=== PATIENT | female | born 1960 | race Two or more races ===

== ENCOUNTER 2024-09-26 04:45 | Observation (INO) | payer MEDICAID, SELFPAY ==
[2024-09-26] VITALS (27 sets, daily range): BP systolic 105–208; BP diastolic 55–100; PULSE 72–94; RESP 10–30; TEMP 36.1–37; O2SAT 92–99; BMI 34.3
--- NOTE | 2024-09-26 05:01 | EKG_ITS ---
[facility] Test Date: 2024-09-26 Pat Name: JEWEL REYNOLDS Department: Room: - Gender: Female Scheduling Clerk: : 1960 Requested By: Trace Pearl ([facility]) Order Number: [id number] Reading MD: Trace Pearl ([facility]) Measurements Intervals [place] Rate: 87 P: 44 [place]: 170 QRS: 16 QRSD: 99 T: 82 QT: 368 QTc: 443 Interpretive Statements SINUS RHYTHM NONSPECIFIC T-WAVE ABNORMALITY Compared to ECG 01/09/2024 12:36:49 No significant changes /store/S0/[id number].pdf
--- NOTE | 2024-09-26 05:01 | XR_ITS ---
Examination: PA lateral chest 2 views Technique: Upright PA lateral chest 2 views Indications: Chest pain today. Findings: Mild CHF Mild to moderate enlargement cardiac contour Prominent vascular congestion with perihilar basilar edema Enlarged Central pulmonary arteries Fluid in the fissures on the lateral view Impression: Mild CHF Suspicious for pulmonary artery hypertension
--- NOTE | 2024-09-26 05:01 | PD.EDRME ---
Rapid Medical Screening Exam RME Arrival date/time: 09/26/24 04:45 65-year-old female past medical history of ESRD with hemodialysis Wednesday, , Wednesday managed by Dr. Morales presents emergency department complaining of shortness of breath. Chief Complaint: Shortness of Breath/Dyspnea Vital signs: Vital Signs Temperature 98.2 F 09/26/24 04:54 Pulse Rate 94 09/26/24 04:54 Respiratory Rate 22 H 09/26/24 04:54 Blood Pressure 208/90 H 09/26/24 04:54 Pulse Oximetry (%) 95 09/26/24 04:54 Oxygen Delivery Method Room Air 09/26/24 04:54 Vital signs reviewed by provider: Yes
--- NOTE | 2024-09-26 06:13 | EDNOTE_ITS ---
ED SOB =RME/HPI General Chief Complaint: Shortness of Breath/Dyspnea Stated Complaint: shortness of breath, supposed to have HD this AM Time Seen by Provider: 09/26/24 06:05 Arrival date/time: 09/26/24 04:45 RME / HPI RME / HPI Narrative: 09/26/24 04:45 65-year-old female past medical history of ESRD with hemodialysis Wednesday, , Wednesday managed by Dr. Morales presents emergency department complaining of shortness of breath. This section includes all my notes and documentations, including HPI, PE, and ED course. Iron Jacobson MD HPI: 64-year-old female here with several days of worsening shortness of breath with equivocal orthopnea. With coughing. No fever. No chest pain. No other complaints. ROS: All negative except as documented in HPI. Physical Exam: General: Alert and oriented. Coughing with mild respiratory distress. Eyes: Conjunctivae and lids clear. ENT: No nasal congestion. Pharynx normal. TM normal bilaterally. Neck: Supple. Heart: RRR. Lungs: Mild respiratory distress. Moderately decreased air movement with diffuse rales. Skin: Warm and dry. Neuro: Alert and oriented X 3. I reviewed all diagnostic test results. My interpretation of the EKG is sinus rhythm with nonspecific ST?T changes. My interpretation of the chest x-ray is increased vascular congestion. Blood tests remarkable for Cr 8.5, troponin 0.059, BNP 373. Urine specimen pending. At this point, diagnoses include CHF and ESRD and elevated troponin. Treatment here included Lasix and morphine and topical NTG. Some improvement noted. I discussed the case with our director of construction and our hospitalist. About the presentation and exam and diagnostics and treatments here. And need of further care in the hospital. Will accept the patient. Iron Jacobson MD Related Data Home Medications ?Medication ?Instructions ?Recorded ?Confirmed atorvastatin 10 mg tablet 10 mg PO DAILY 01/09/24 01/09/24 ergocalciferol (vitamin D2) 1,250 1,250 mcg PO DAILY 01/09/24 01/09/24 mcg (50,000 unit) capsule fluoxetine 20 mg capsule 20 mg PO DAILY 01/09/24 01/09/24 furosemide 40 mg tablet 40 mg PO DAILY 01/09/24 01/09/24 levothyroxine 75 mcg tablet 75 mcg PO DAILY 01/09/24 01/09/24 loratadine 10 mg tablet 10 mg PO DAILY 01/09/24 01/09/24 patiromer calcium sorbitex 8.4 8.4 g PO DAILY 01/09/24 01/09/24 gram oral powder packet (Veltassa) sevelamer carbonate 800 mg tablet 800 mg PO TID 01/09/24 01/09/24 Previous Rx's ?Medication ?Instructions ?Recorded permethrin 5 % topical cream 1 applic topical Q14D 2 doses #60 01/11/24 grams hydrocodone 5 mg-acetaminophen 325 1 tab PO BID PRN pain #10 tabs 05/09/24 mg tablet Allergies Allergy/AdvReac Type Severity Reaction Status Date / Time peach Allergy Severe SKIN RASH Verified 05/09/24 16:59 Course Quality Measures none Orders Category Date Time Status Bedside Influenza A&B Antigen Test NOW Care 09/26/24 05:02 Completed COVID-19 Screening Questionnaire NOW Care 09/26/24 08:54 Active Decision to Admit X1 Care 09/26/24 08:54 Completed EKG (ED ONLY) *Do not use* NOW Care 09/26/24 05:01 Completed Saline [Insert IV] NOW Care 09/26/24 06:15 Completed Consult to Nephrology Stat Cons 09/26/24 08:46 Ordered EKG (ED Only) Stat Exams 09/26/24 05:01 Draft XR chest 2V Stat Exams 09/26/24 05:01 Completed B-Type Natriuretic Peptide Stat Lab 09/26/24 05:56 Completed CBC Stat Lab 09/26/24 07:32 Completed Comprehensive Metabolic Panel Stat Lab 09/26/24 05:56 Completed Drug Screen,Urine Stat Lab 09/26/24 05:01 Ordered Magnesium Stat Lab 09/26/24 05:56 Completed Partial Thromboplastin Time Stat Lab 09/26/24 05:56 Completed Prothrombin Time with INR Stat Lab 09/26/24 05:56 Completed Troponin I Stat Lab 09/26/24 05:56 Completed Urinalysis Stat Lab 09/26/24 05:01 Ordered Furosemide Inj [Lasix Inj] Med 09/26/24 07:29 Discontinued 80 mg IVP X1 ONE Morphine Inj Med 09/26/24 07:29 Discontinued 2 mg IVP X1 ONE Nitroglycerin Oint 2% [Nitro-paste Oint 2%] Med 09/26/24 07:29 Discontinued 1 inch TOP X1 ONE Vital Signs Vital signs: Vital Signs Temperature 98.2 F 09/26/24 04:54 Pulse Rate 94 09/26/24 04:54 Respiratory Rate 22 H 09/26/24 04:54 Blood Pressure 208/90 H 09/26/24 04:54 Pulse Oximetry (%) 95 09/26/24 04:54 Oxygen Delivery Method Room Air 09/26/24 04:54 Shortness of Breath / Dyspnea Patient data External records reviewed:: [facility] previous records (I reviewed ED visit on 05/09/2024) Clinical information provided by:: patient and EMS Social determinants that could affect healthcare access:: housing Patient has the following chronic illnesses:: HFpEF 50% 12/2023, hypertension, ESRD on HD T/Th/Sat, hypothyroidism, hyperlipidemia How is presenting disease/condition affected by chronic disease/condition?: exacerbated by Evaluation data The following diagnostics were reviewed and interpreted by me:: lab results, radiology exam(s) and EKG tracing(s) (My interpretation of the EKG is: Sinus rhythm (73 bpm) with nonspecific ST-T changes. Iron Jacobson MD) Lab and/or radiology exams considered but not ordered:: None Interpretation Summary: CHF and ESRD and elevated troponin Medications / Prescriptions Medications or Prescriptions considered but not ordered:: None Medication administrations:: Medication Administration History Discontinued Medications Furosemide (Furosemide Inj 10 Mg/Ml 4ml Vial) 80 mg IVP X1 ONE Stop: 09/26/24 07:30 Last Admin: 09/26/24 08:53 Dose: 80 mg Documented By: GERARD Morphine Sulfate (Morphine Sulf Inj 10 Mg/Ml Vial) 2 mg IVP X1 ONE Stop: 09/26/24 07:30 Last Admin: 09/26/24 08:58 Dose: 2 mg Documented By: GERARD Nitroglycerin (Nitroglycerin Oint 2% 1 Inch Packet) 1 inch TOP X1 ONE Stop: 09/26/24 07:30 Last Admin: 09/26/24 08:55 Dose: 1 inch Documented By: GERARD Lasix and topical NTG and morphine Consultations Consultation(s) initiated? (list below): Yes Consultation #1 (Physician, Specialty, Details): Dr. Morales (Nephrology) Diagnosis Shortness of Breath Differential Diagnosis: acute exacerbation of chronic obstructive airways disease, congestive heart failure, community acquired pneumonia and other (MO) Most likely diagnosis given after review of the tests above:: CHF Admission Indicated Admission indicated?: indicated Explain why admission is indicated or not indicated:: CHF Admission Request Was there a request for admission?: Yes Admission Attestation Admission request attestation: Discussed case with Hospitalist service regarding admission. Discussed patients ED course, exam findings, labs, and radiology results. The Hospitalist [agrees,declines] to accept the patient for admission. Disposition Plan Disposition Plan: Admit Discharge Plan Plan Patient Disposition: Admit Acute Care w/in Hospital Prescriptions/Referrals Prescriptions/Med Rec: No Action furosemide 40 mg tablet 40 mg PO DAILY atorvastatin 10 mg tablet 10 mg PO DAILY levothyroxine 75 mcg tablet 75 mcg PO DAILY ergocalciferol (vitamin D2) 1,250 mcg (50,000 unit) capsule 1,250 mcg PO DAILY fluoxetine 20 mg capsule 20 mg PO DAILY Veltassa 8.4 gram powder in packet 8.4 g PO DAILY Hold Instructions: Resume on 01/18/24. To be evaluated by PCP sevelamer carbonate 800 mg tablet 800 mg PO TID loratadine 10 mg tablet 10 mg PO DAILY Hold Instructions: Resume on 01/18/24. To be evaluated by PCP in outpatient setting permethrin 5 % cream 1 applic topical Q14D Qty: 60 0RF Rx Instructions: apply second treatment 14 days after first treatment if live lice remain hydrocodone-acetaminophen 5-325 mg tablet 1 tab PO BID MDD 10 PRN (Reason: pain) Qty: 10 0RF Referrals: Viky Wick PA-C [Primary Care Provider] - In 1 week Problem List Clinical Impression: Elevated troponin, End-stage renal disease (ESRD), Congestive heart failure Patient/Caregiver Discharge Instructions Print Language: Cook Islander Stand Alone Forms: Devi Award Info., Patient Portal Info Letter
[2024-09-26 07:14] LABS: INR 1.1 (0.9-1.3); Partial Thromboplastin Time 31.6 Seconds (22.0-36.0); Prothrombin Time 11.5 Seconds (9.0-12.2)
[2024-09-26 07:24] LABS: B-Type Natriuretic Peptide 373 pg/mL (0-100)
[2024-09-26 07:49] LABS: Alanine Aminotransferase < 7 U/L (10-49); Albumin, Serum 4.4 gm/dL (3.4-4.8); Albumin/Globulin Ratio 1.7 (1.2-2.2); Alkaline Phosphatase 139 U/L (46-116); Anion Gap 10 (7-16); Aspartate Amino Transferase < 8 U/L (0-34); BUN/Creatinine Ratio 6 Ratio (12-20); Bilirubin,Total 0.3 mg/dL (0.3-1.2); Blood Urea Nitrogen 49 mg/dL (9-23); Calcium 8.9 mg/dL (8.3-10.6); Calcium (Corrected) 8.9 mg/dL (8.5-10.1); Carbon Dioxide 28.3 mMol/L (20.0-31.0); Chloride 100 mMol/L (98-107); Creatinine (Component) 8.5 mg/dL (0.6-1.3); Estimated Creatinine Clearance 7.2 mL/min (>60); Globulin 2.6 gm/dL (2.3-3.5); Glucose 90 mg/dL (74-106); Magnesium 2.3 mg/dL (1.6-2.6); Osmolality,Calculated 288 (275-295); Potassium 5.1 mMol/L (3.4-5.1); Sodium 138 mMol/L (136-145); eGFR 5 See Note
[2024-09-26 07:59] LABS: Basophils % (Auto) 0 % (0-2.5); Eosinophils # (Auto) 0.1 Thou/mm3 (0.0-0.5); Eosinophils % (Auto) 2 % (0-10); Hematocrit 30.5 % (36.0-46.0); Hemoglobin 9.7 g/dL (12.0-16.0); Immature Granulocytes % (Auto) 0 % (0-0); Immature Granulocytes Auto 0.02 Thou/mm3 (0.00-0.00); Lymphocytes # (Auto) 0.8 Thou/mm3 (1.0-4.8); Lymphocytes % (Auto) 12 % (10-50); Mean Corpuscular HGB Conc 31.8 g/dl (31.0-37.0); Mean Corpuscular Volume 88 fL (80-100); Monocytes # (Auto) 0.4 Thou/mm3 (0.0-0.8); Monocytes % (Auto) 5 % (0-12); Neutrophils # (Auto) 5.6 Thou/mm3 (1.8-7.7); Neutrophils % (Auto) 81 % (37-80); Nucleated Red Blood Cell % 0 /100 WBC (0); Platelet Count 106 Thou/mm3 (140-440); RDW Standard Deviation 41.1 fL (36.4-46.3); Red Blood Count 3.47 Miln/mm3 (4.00-5.20); White Blood Count 6.9 Thou/mm3 (3.6-11.0)
[2024-09-26 08:15] LABS: Troponin I 0.059 ng/mL (0.0-0.045)
[2024-09-26] MEDS: FUROSEMIDE INJ 10 MG/ML 4ML VIAL 80 MG IVP (08:53)
[2024-09-26] MEDS: NITROGLYCERIN OINT 2% 1 INCH PACKET TOP (08:55)
[2024-09-26] MEDS: MORPHINE SULF INJ 10 MG/ML VIAL 2 MG IVP (08:58)
[2024-09-26 09:35] LABS: Collection Type, Urine Clean Catch
[2024-09-26 09:46] LABS: Amphetamine/Methamp Scrn,U Negative (Negative); Barbiturate Screen,Urine Negative (Negative); Benzodiazepines Screen,Urine Negative (Negative); Benzoylecgonine Screen, Ur Negative (Negative); Fentanyl Screen,Urine Negative (Negative); Opiate Screen,Urine Negative (Negative); THC Screen,Urine Negative (Negative)
[2024-09-26 09:50] LABS: Bacteria,Urine Rare; Bilirubin,Urine Negative (Negative); Blood,Urine 3+ (Negative); Color,Urine Colorless (Lt Yel-Yel); Glucose, Urine 2+ (Negative); Ketones,Urine Negative (Negative); Leukocyte Esterase,Urine Positive (Negative); Nitrite,Urine Negative (Negative); PH,Urine 8.5 (5.0-7.0); Protein,Urine 3+ (Neg - Trace); RBC,Urine 633 /hpf (0-3); Squamous Epithelial Cell,Urine 3 /hpf (0-5); Urobilinogen,Urine Negative mg/dL (0.0-1.0); WBC,Urine 75 /hpf (0-5)
[2024-09-26 09:53] LABS: Clarity,Urine Hazy (Clear/Hazy)
--- NOTE | 2024-09-26 12:03 | ESHP_ITS ---
Documentation for date of: 09/26/24 HPI History of Present Illness Chief complaint: Shortness of breath History of present illness: 62-year-old female past medical history of ESRD on hemodialysis for about 4 years (T, , S), hypertension, HFrEF, anxiety, hypothyroidism, and hyperlipidemia presented to the ED with shortness of breath. Patient states she was due her dialysis session today, however patient woke up very short of breath for which she was gasping for air and was brought to the ED. Of note patient states she has had to come to the hospital various occasions due to same symptoms. At this time patient denies any chest pain, nausea, vomiting, diarrhea, shortness of breath, lower extremity swelling, orthopnea, PND. Patient will be admitted as observation for hemodialysis. ED course: Vitals on arrival significant for tachypnea, hypertension systolic blood pressure in the 200s, CBC significant for some mild anemia, CHEM panel nonsignificant at this time. Troponin 0.059, BNP 373, chest x-ray was done showed mild congestive heart failure, pulmonary hypertension. PMHx: As above SxHx: Hernia repair, hysterectomy, cholecystectomy Social Hx: Denies tobacco, denies alcohol use, denies illicit substances including THC FHx: Unknown Review of Systems Review of Systems Narrative Review of Systems: Narrative ROS GENERAL: Denies fevers/chills or diaphoresis. HEENT: Denies headache or visual/hearing changes. Denies nasal discharge. NEURO: Denies unusual weakness or difficulty speaking. CARDIO: Denies chest pain or palpitations. PULM: Denies SOB, coughing, or wheezing. GI: Denies abdominal pain, N/V/C/D/reflux/gas, bright red blood per rectum or melena. Reports having BMs. URO: Denies burning/itching/pain/urinary changes. BOWLING ALLEY ATTENDANT: Denies menstrual changes, hot flashes. MSK/EXT/SKIN: Denies joint/skeletal/muscle pain, issues/changes in upper or lower extremities, itchiness, or superficial pain. PSYCH: Cooperative, pleasant mood & affect. The rest of the review of systems is otherwise negative. Exam Vital Signs Temp Pulse Resp BP Pulse Ox O2 Del Method O2 Flow Rate 98.6 F 76 11 L 155/71 H 97 Nasal Cannula 2 09/26/24 08:08 09/26/24 11:16 09/26/24 11:16 09/26/24 11:16 09/26/24 11:16 09/26/24 11:16 09/26/24 11:16 Narrative Exam Physical Exam GENERAL: NAD, AAOx3 HEENT: Moist mucosa. Eyes open, symmetrical, & clear CARDIO: Heart RRR, no obvious murmurs PULM: No noted coughing/dyspnea, mild crackles bilaterally GI: Abdomen soft, nondistended, no pain on palpation. BSx4 SKIN/MSK/EXT: Left upper extremity AV fistula, no pain on palpation. Pedal pulses present B/L NEURO: AAOx3, no focal neuro deficits, able to move all 4 extremities Results: Labs 09/26/24 07:32 09/26/24 05:56 Labs: Short CBC 09/26/24 Range/Units 07:32 WBC 6.9 (3.6-11.0) Thou/mm3 Hgb 9.7 L (12.0-16.0) g/dL Hct 30.5 L (36.0-46.0) % Plt Count 106 L (140-440) Thou/mm3 BMP 09/26/24 05:56 Sodium 138 Potassium 5.1 Chloride 100 Carbon Dioxide 28.3 BUN 49 H Creatinine 8.5 H* Glucose 90 Calcium 8.9 Cardiac Enzymes 09/26/24 Range/Units 05:56 Troponin I 0.059 H* (0.0-0.045) ng/mL Liver Function 09/26/24 Range/Units 05:56 Total Bilirubin 0.3 (0.3-1.2) mg/dL AST < 8 (0-34) U/L ALT < 7 L (10-49) U/L Alkaline Phosphatase 139 H (46-116) U/L Albumin 4.4 (3.4-4.8) gm/dL Urine 09/26/24 Range/Units 08:45 Urine Color Colorless A (Lt Yel-Yel) Urine Clarity Hazy (Clear/Hazy) Urine pH 8.5 H (5.0-7.0) Ur Specific [place] 1.010 (1.001-1.035) Urine Protein 3+ A (Neg - Trace) Urine Glucose (UA) 2+ A (Negative) Quality Measures Quality Measures none Medications Home Medications and Allergies Home Medications ?Medication ?Instructions ?Recorded ?Confirmed ?Type atorvastatin 10 mg tablet 10 mg PO DAILY 01/09/24 01/09/24 History ergocalciferol (vitamin D2) 1,250 1,250 mcg PO DAILY 01/09/24 01/09/24 History mcg (50,000 unit) capsule fluoxetine 20 mg capsule 20 mg PO DAILY 01/09/24 01/09/24 History furosemide 40 mg tablet 40 mg PO DAILY 01/09/24 01/09/24 History levothyroxine 75 mcg tablet 75 mcg PO DAILY 01/09/24 01/09/24 History loratadine 10 mg tablet 10 mg PO DAILY 01/09/24 01/09/24 History patiromer calcium sorbitex 8.4 8.4 g PO DAILY 01/09/24 01/09/24 History gram oral powder packet (Veltassa) sevelamer carbonate 800 mg tablet 800 mg PO TID 01/09/24 01/09/24 History Allergies Allergy/AdvReac Type Severity Reaction Status Date / Time peach Allergy Severe SKIN RASH Verified 05/09/24 16:59 Visit Medications Acetaminophen (Acetaminophen 325 Mg Tablet) 650 mg PO Q6H PRN PRN Reason: Fever >100.5 Stop: 10/26/24 09:50 Acetaminophen (Acetaminophen 325 Mg Tablet) 650 mg PO Q6H PRN PRN Reason: PAIN SCALE 1-3 (mild Stop: 10/26/24 09:50 Docusate Sodium (Docusate Sod 100 Mg Capsule) 100 mg PO QDAY [facility]; Protocol Stop: 10/27/24 08:59 Heparin Sodium (Porcine) (Heparin Sod Inj 5000 Unit/Ml Vial) 5,000 unit SC Q8HR [facility] Stop: 10/10/24 13:59 Ondansetron HCl (Ondansetron Inj 2 Mg/Ml Inj 2 Ml) 4 mg IV Q6H PRN; Protocol PRN Reason: NAUSEA OR VOMITING Stop: 10/26/24 09:50 Discontinued Medications Furosemide (Furosemide Inj 10 Mg/Ml 4ml Vial) 80 mg IVP X1 ONE Stop: 09/26/24 07:30 Last Admin: 09/26/24 08:53 Dose: 80 mg Morphine Sulfate (Morphine Sulf Inj 10 Mg/Ml Vial) 2 mg IVP X1 ONE Stop: 09/26/24 07:30 Last Admin: 09/26/24 08:58 Dose: 2 mg Nitroglycerin (Nitroglycerin Oint 2% 1 Inch Packet) 1 inch TOP X1 ONE Stop: 09/26/24 07:30 Last Admin: 09/26/24 08:55 Dose: 1 inch Assessment & Plan Plan 62-year-old female past medical history of ESRD on hemodialysis for about 4 years (, , S), hypertension, HFrEF, anxiety, hypothyroidism, and hyperlipidemia presented to the ED with shortness of breath. Patient will be admitted as observation for hemodialysis and hypertensive urgency. #Hypertensive urgency #Fluid overload Patient arrived with systolic blood pressure in the 200s to 210's Per patient after dialysis session her blood pressure runs on the lower side. -Will monitor at this time and reassess after dialysis -Labetalol 10 mg every 6 as needed, for SBP>190, hold if heart rate less than 60 -Lasix 40 mg daily resumed #ESRD (, WED) Continuous Improvement Analyst, Dr. Morales -Resume hemodialysis as scheduled #History of CHF Echo from December 2023 showed Normal LV size and function. Mild LVH. Estimated EF 55% Mild RV dilatation. Normal RV function. Mild LA dilatation. Mild MAC. Trace MR. Moderate calcific aortic valve stenosis, mean gradient 30mmHg, Vmax 3.8m/s. Mild TR, Trace AI. Per chart review patient is on goal-directed medical therapy, will resume after dialysis -Pending med rec #Hypothyroidism -Resume levothyroxine 75 mcg p.o. daily #Hyperlipidemia On atorvastatin 10 mg -Will resume was taken at home #Anxiety/depression -She takes fluoxetine 20 mg daily Case discussed with my senior Dr. Lyman PGY-[address] Doroteo Allison MD PGY-1 Disposition: Telemetry Fluids: None Feeding: Renal Thrombo prophylaxis: Heparin Gastric Ulcer prophylaxis: None CODE STATUS: Full code Senior resident attestation: Patient evaluated and examined at the bedside, plan of care discussed with rest of the team including my attending physician, except as noted. Patient is a 62-year-old female with past medical of ESRD on hemodialysis TTS, hypertension, CHF, anxiety and hypothyroidism who presented to the emergency room complaining of shortness of breath. Patient reported she had some sick contacts recently, complaining of atypical chest pain. Noted to have troponin leak, lab reviews show patient has persistent troponinemia, troponin 0.059 on this admission. Patient lives at the halfway, follows with hemodialysis, Dr Morales is the water treatment plant mechanic. Reported compliance with hemodialysis sessions. Patient admitted to medical floor for acute hypoxic respiratory failure secondary to volume overload likely secondary to ESRD. And accelerated hypertension. #Hypertensive urgency #ESRD #History of CHF Quresh PGY2
--- NOTE | 2024-09-26 12:21 | PC.NURSE ---
Patient resting comfortable, call light within reach.
--- NOTE | 2024-09-26 12:21 | PC.CC ---
Pt Cecily Desouza is a 64 yr old female admitted to hospitalist services for SOB. ASW met with pt at bedside to complete initial assessment. At time of encounter pt is noted to be alert and oriented to person, place and situation. Pt expressed understanding admission order. Pt able to confirm demographic information. Pt is from [place] [facility] [address] Per pt she has been residing at [facility] for last 2 months. Per pt prior to settling at [facility] she was residing with a friend. Pt identifies her sister Alejandra Desouza [phone] and her son Stephan Jackson [phone] as her surrogate DMs. Pt reports that she does not require DME to support ambulation. Pt reports being independent with her ADLs. Pt is on dialysis T, Th, Sat @ 0600. Per pt she is transported to dialysis by medical transport. Pt reports she is not diabetic. Pt reports using O2 PRN at dialysis. Pt dialysis center is [facility]. Pt is followed by Viky Wick for primary care. Pts inside sales professional is Dr. Morales. At time of D/c pt reports she will return to [facility]. Per pt staff at [facility] are assisting pt to secure permanent housing. Pt reports she is disabled and receives $1,188 per month. Pt will need transport back to [facility] at time of D/c.
--- NOTE | 2024-09-26 13:58 | PD.RESCONSUL ---
HPI Data of Consult Consult date: 09/26/24 Requesting Physician: Benjie Sadler MD Admitting Provider: Benjie Sadler MD Attending Provider: Benjie Sadler MD Primary Care Provider: Viky Wick PA-C Consult Narrative Reason for consult: ESRD on dialysis Wednesday//Wednesday History of present illness: HPI:A 64-year-old female patient with past medical history of ESRD on dialysis T//, hypertension, anxiety, hypothyroidism, HFrEF, hyperlipidemia, came to the ED due to shortness of breath for 1 day. She reported that her symptoms started as cough for 2 days before admission but continued to worsen and today this morning when she woke up her shortness of breath kept worsening. Patient on regular dialysis., Patient denied any fever or chills, denied any nausea or vomiting however she reported that there was someone in her facility was sick. Patient dialysis treatment is due today she has not had gone under dialysis this week. At the ED patient blood pressure was mildly elevated 153/86, O2 saturation was within normal limits. Chest x-ray showed possible vascular congestion. Her BNP is 373 which is below her baseline, patient has an echo in December which showed ejection fraction of 55%, troponin chronically elevated however states lowest #0.0 59. Serum creatinine noticed to be elevated to 8.5, potassium was 5.1, BUN of 49. Patient will undergo dialysis today. PMH: As above cc:: cc: Benjie Sadler MD Review of Systems Review of Systems Narrative Review of Systems: CONSTITUTIONAL: Patient denies any fever, chills. Complaining of fatigue HEENT: Denies any visual disturbances or hearing problems. CARDIOVASCULAR: Patient denies any chest pain. c/o shortness of breath, swelling in the lower extremities. PULMONARY: Patient c/o shortness of breath, cough. GASTROINTESTINAL: Patient denies any abdominal pain, constipation, nausea, vomiting, diarrhea. GENITOURINARY: Patient denies any urinary symptoms of burning or frequency or hematuria, denies any form in the urine. SKIN: Denies any rash. MUSCULOSKELETAL: Denies any muscular skeletal problems of joint pains. NEUROLOGICAL: Denies any neurological problems of strokes, seizures or confusion. Denies any memory problems. Past Medical History Past Medical History NEUROLOGIC: Negative Neurological Disorders, Cerebrovascular Accident, Transient Ischemic Attacks (TIA), Dementia, Alzheimer's Disease, Parkinson's Disease, Brain Tumor, Meningitis, Seizures, Epilepsy, Multiple Sclerosis, Cerebral Palsy, Amyotrophic Lateral Sclerosis (ALS/Nasreen Gehrig's), Guillain-[place] Syndrome, Spina Bifida, Paralysis, Peripheral Neuropathy, Lopez's Palsy, Subdural Hematoma, Migraine, Head Trauma, Spinal Cord Injury or Traumatic Brain Injury CARDIAC: Positive Cardiac Disorders, Hypercholesterolemia, Congestive Heart Failure, Edema and Hypertension; Negative Myocardial Infarction, Cardiac Arrhythmia, Atrial Fibrillation, Angina, Heart Murmur, Coronary Artery Disease, Atherosclerotic Heart Disease, Peripheral Vascular Disease, Aneurysm, Congenital Heart Disease, Valvular Heart Disease, Rheumatic Fever, Cardiomyopathy, Pericarditis, Cellulitis, Deep Vein Thrombosis, Hypotension or Varicose Veins RESPIRATORY: Negative Chronic Obstructive Pulmonary Disease (COPD), Asthma, Bronchitis, Emphysema, Pneumonia, Pulmonary Fibrosis, Tuberculosis, Pulmonary Embolism, Pulmonary Edema or Sleep Apnea GASTROINTESTINAL: Positive Gastrointestinal Disorders, Gall Bladder Disease and Obesity; Negative Hepatitis, Cirrhosis, Pancreatitis, Celiac Disease, Gastrointestinal Bleed, Esophageal Varices, Newton's Esophagus, Colitis, Ulcerative Colitis, Diverticulitis, Diverticulosis, Ulcer, Colorectal Cancer, Irritable Bowel, Crohn's Disease, Obstructive Bowel, Hiatal Hernia, Hemorrhoids or Gastroesophageal Reflux Disease GENITOURINARY: Positive Renal Disease; Negative Genitourinary Disorders, Kidney Stones, Polycystic Kidney Disease, Neurogenic Bladder, Inguinal Hernia, Dialysis, Prostate Cancer or Benign Prostatic Hyperplasia REPRODUCTIVE: Positive Endometriosis and Previous Pregnancies; Negative Breast Cancer or Testicular Cancer MUSCULOSKELETAL: Negative Musculoskeletal Disorders, Muscular Dystrophy, Myasthenia Gravis, Marfan's Syndrome, Arthritis, Rheumatoid Arthritis, Osteoporosis, Degenerative Disk Disease, Gout, Scoliosis, Carpal Tunnel Syndrome, Fibromyalgia, Fractures, Degenerative Joint Disease, Osteomyelitis or Poliovirus ENT: Negative Cataracts, Glaucoma, Blind, Retinal Detachment, Macular Degeneration, Ear Infection, Deafness, Head Trauma or Eye Prosthesis ENDOCRINE: Positive Endocrine Disorders, Diabetes Mellitus Type 2 and Hypothyroidism; Negative Diabetes Mellitus Type 1, Hypoglycemia, [place]'s Syndrome, [place]'s Disease, Hyperthyroidism, Parathyroid Disease, Pituitary Disease, Systemic Lupus Erythematosus, Syndrome of Inappropriate Antidiuretic Hormone (SIADH), Adrenal Disease or Graves' Disease HEMATOLOGIC: Negative Blood Disorders, Anemia, Leukemia, Hemophilia, Thalassemia, Sickle Cell Disease or Clotting Problems PSYCHO/SOCIAL: Positive Recreational Drug Use, Depression and Anxiety; Negative Psychiatric Problems, Schizophrenia, Bipolar Disorder, Behavior Problems, Self-Mutilation, Attention Deficit Disorder, Attention Deficit Hyperactivity Disorder, Depression, Post Traumatic Stress Disorder or Eating Disorder OTHER HISTORY: Positive Hospitalization and Chicken Pox; Negative Autoimmune Disease, Autism, Shingles, Falls, Blood Transfusions, Anesthesia Reactions, Organ Transplant, Chemotherapy, Radiation Therapy, MRSA, Human Immunodeficiency Virus (HIV), Measles, Mumps, Rubella ([place]ian Measles), Pertussis, Clostridium Difficile, Cancer, Breast Cancer, Cervical Cancer, Colorectal Cancer, Lung Cancer, Prostate Cancer or Testicular Cancer Family History FAMILY HISTORY: Positive Family Cardiac Disorders, Family Gastrointestinal Problems and Family Surgery; Negative Family Psychiatric Problems, Family Respiratory Disorders, Family Cancer or Family Anesthesia Reaction Surgical History SURGICAL: Positive Abdominal Surgery, Hysterectomy and Tubal Ligation; Negative Cardiac Surgery, Open Heart Surgery, Coronary Artery Bypass Graft, Valve Replacement, Vascular Surgery, Coronary Stent, Cardiac Catheterization, Pacemaker, Angiogram, Auto Implanted Cardiovert Defib, Carotid Endarterectomy, Endocrine Surgery, Thyroidectomy, Ear Surgery, Tympanostomy Tube, Eye Surgery, Nose Surgery, Oral Surgery, Tonsillectomy, Adenoidectomy, Gastric Bypass Surgery, Gastrostomy, Bowel Surgery, Nephrectomy, Transurethral Resection, Joint Replacement, Amputation, Open Reduction Internal Fixation, Arthroscopy, Neurologic Surgery, Brain Shunt, Mastectomy, Lumpectomy, Section, Vasectomy or Organ Transplant Social History SMOKING STATUS: Never smoker SECOND HAND EXPOSURE: No SUBSTANCE USE: does not use Exam Vital Signs Temp Pulse Resp BP Pulse Ox O2 Del Method O2 Flow Rate 98.0 F 75 18 153/86 H 96 Nasal Cannula 1 09/26/24 12:32 09/26/24 13:45 09/26/24 12:32 09/26/24 13:45 09/26/24 12:32 09/26/24 11:16 09/26/24 12:32 Narrative Exam GEN: AOx3, looks chronically ill, able to speak full sentences HEENT: NC/AC, oral mucosa moist, neck supple CVS: RRR, S1-S2 present, no murmurs appreciated RESP: Good air entry bilaterally, faint crepitations on the right side. GI: soft,non distended, non tender, NBS MSK: able to move all 4 limbs, no lower extremity edema SKIN: warm and dry CEMENT KILN OPERATOR: CN II-XII and Sensation grossly intact. Results Labs 09/26/24 07:32 09/26/24 05:56 Labs: Short CBC 09/26/24 Range/Units 07:32 WBC 6.9 (3.6-11.0) Thou/mm3 Hgb 9.7 L (12.0-16.0) g/dL Hct 30.5 L (36.0-46.0) % Plt Count 106 L (140-440) Thou/mm3 BMP 09/26/24 05:56 Sodium 138 Potassium 5.1 Chloride 100 Carbon Dioxide 28.3 BUN 49 H Creatinine 8.5 H* Glucose 90 Calcium 8.9 Cardiac Enzymes 09/26/24 Range/Units 05:56 Troponin I 0.059 H* (0.0-0.045) ng/mL Liver Function 09/26/24 Range/Units 05:56 Total Bilirubin 0.3 (0.3-1.2) mg/dL AST < 8 (0-34) U/L ALT < 7 L (10-49) U/L Alkaline Phosphatase 139 H (46-116) U/L Albumin 4.4 (3.4-4.8) gm/dL Urine 09/26/24 Range/Units 08:45 Urine Color Colorless A (Lt Yel-Yel) Urine Clarity Hazy (Clear/Hazy) Urine pH 8.5 H (5.0-7.0) Ur Specific [place] 1.010 (1.001-1.035) Urine Protein 3+ A (Neg - Trace) Urine Glucose (UA) 2+ A (Negative) Quality Measures Quality Measures none Medications Home Medications and Allergies Home Medications ?Medication ?Instructions ?Recorded ?Confirmed ?Type atorvastatin 10 mg tablet 10 mg PO DAILY 01/09/24 01/09/24 History ergocalciferol (vitamin D2) 1,250 1,250 mcg PO DAILY 01/09/24 01/09/24 History mcg (50,000 unit) capsule fluoxetine 20 mg capsule 20 mg PO DAILY 01/09/24 01/09/24 History furosemide 40 mg tablet 40 mg PO DAILY 01/09/24 01/09/24 History levothyroxine 75 mcg tablet 75 mcg PO DAILY 01/09/24 01/09/24 History loratadine 10 mg tablet 10 mg PO DAILY 01/09/24 01/09/24 History patiromer calcium sorbitex 8.4 8.4 g PO DAILY 01/09/24 01/09/24 History gram oral powder packet (Veltasergeya) sevelamer carbonate 800 mg tablet 800 mg PO TID 01/09/24 01/09/24 History Allergies Allergy/AdvReac Type Severity Reaction Status Date / Time peach Allergy Severe SKIN RASH Verified 05/09/24 16:59 Visit Medications Acetaminophen (Acetaminophen 325 Mg Tablet) 650 mg PO Q6H PRN PRN Reason: Fever >100.5 Stop: 10/26/24 09:50 Acetaminophen (Acetaminophen 325 Mg Tablet) 650 mg PO Q6H PRN PRN Reason: PAIN SCALE 1-3 (mild Stop: 10/26/24 09:50 Docusate Sodium (Docusate Sod 100 Mg Capsule) 100 mg PO QDAY LISY; Protocol Stop: 10/27/24 08:59 Heparin Sodium (Porcine) (Heparin Sod Inj 5000 Unit/Ml Vial) 5,000 unit SC Q8HR LISY Stop: 10/10/24 13:59 Ondansetron HCl (Ondansetron Inj 2 Mg/Ml Inj 2 Ml) 4 mg IV Q6H PRN; Protocol PRN Reason: NAUSEA OR VOMITING Stop: 10/26/24 09:50 Discontinued Medications Furosemide (Furosemide Inj 10 Mg/Ml 4ml Vial) 80 mg IVP X1 ONE Stop: 09/26/24 07:30 Last Admin: 09/26/24 08:53 Dose: 80 mg Morphine Sulfate (Morphine Sulf Inj 10 Mg/Ml Vial) 2 mg IVP X1 ONE Stop: 09/26/24 07:30 Last Admin: 09/26/24 08:58 Dose: 2 mg Nitroglycerin (Nitroglycerin Oint 2% 1 Inch Packet) 1 inch TOP X1 ONE Stop: 09/26/24 07:30 Last Admin: 09/26/24 08:55 Dose: 1 inch Assessment & Plan Plan Summary: A 64-year-old female patient with past medical history of ESRD on dialysis T/TH/S, hypertension, anxiety, hypothyroidism, HFrEF, hyperlipidemia, came to the ED due to shortness of breath for 1 day. She reported that her symptoms started as cough for 2 days before admission but continued to worsen and today this morning when she woke up her shortness of breath kept worsening. Patient was admitted for management of hypertension emergency with possible fluid overload Assessment and plan #ESRD Patient has been diagnosed with a ESRD 4 years ago Follow-up with Dr. Morlaes having dialysis regularly T//S Serum creatinine today 8.4, BUN 49, potassium of 4.1, not an acidotic state Patient is likely to be fluid overloaded, BNP level at his lowest point at this time of 373 Patient lying in bed comfortably, no lower extremities edema, no JVD Plan ? Pharmacy to dose medication ? Session dialysis today ? Pharmacy to dose medications ? Strict in and out ? Will continue dialysis as per her schedule at this time Thank you for your consultation, please do not hesitate to reach out if you have any question or concern - Patient's plan and care discussed with my attending, Dr. Carmen Perez MD Internal Medicine PGY-2 Attending Provider Attestation/Addendum Patient seen and examined with resident physician Dr. Cuadra. Note reviewed, agree with findings and recommendations. Patient currently seen on dialysis. Tolerating dialysis without any problems. Hemodialysis for 3 hours, 2K, ultrafiltration 2-3 L, Epogen 6000, no heparin ordered. Plan of care discussed with the dialysis nurse. Please see dialysis flowsheet for further details. Patient presented with chest pain, shortness of breath. Hopefully with dialysis it will improve. Ultrafiltration 2 L in progress. Thank you Dr. Sadler for allowing me to participate in the care of Ms. Desouza
[2024-09-26] MEDS: ACETAMINOPHEN 325 MG TABLET 650 MG PO (18:30)
[2024-09-26] MEDS: ATORVASTATIN CALCIUM 10 MG TABLET PO (20:45)
[2024-09-26] MEDS: HEPARIN SOD INJ 5000 UNIT/ML VIAL SC (20:45)
[2024-09-27] VITALS (7 sets, daily range): BP systolic 108–140; BP diastolic 64–82; PULSE 76–88; RESP 16–20; TEMP 36–36.4; O2SAT 94–99
[2024-09-27] MEDS: LEVOTHYROXINE SODIUM 25 MCG TABLET 75 MCG PO (05:24)
[2024-09-27] MEDS: HEPARIN SOD INJ 5000 UNIT/ML VIAL SC (05:24)
[2024-09-27 06:14] LABS: Basophils % (Auto) 0 % (0-2.5); Eosinophils # (Auto) 0.2 Thou/mm3 (0.0-0.5); Eosinophils % (Auto) 3 % (0-10); Hematocrit 29.2 % (36.0-46.0); Hemoglobin 9.5 g/dL (12.0-16.0); Immature Granulocytes % (Auto) 0 % (0-0); Immature Granulocytes Auto 0.02 Thou/mm3 (0.00-0.00); Lymphocytes # (Auto) 0.8 Thou/mm3 (1.0-4.8); Lymphocytes % (Auto) 18 % (10-50); Mean Corpuscular HGB Conc 32.5 g/dl (31.0-37.0); Mean Corpuscular Hemoglobin 28.6 pg (25.0-35.0); Mean Corpuscular Volume 88 fL (80-100); Monocytes # (Auto) 0.3 Thou/mm3 (0.0-0.8); Monocytes % (Auto) 7 % (0-12); Neutrophils # (Auto) 3.2 Thou/mm3 (1.8-7.7); Neutrophils % (Auto) 71 % (37-80); Nucleated Red Blood Cell % 0 /100 WBC (0); Platelet Count 103 Thou/mm3 (140-440); RDW Standard Deviation 40.8 fL (36.4-46.3); Red Blood Count 3.32 Miln/mm3 (4.00-5.20); White Blood Count 4.5 Thou/mm3 (3.6-11.0)
[2024-09-27 07:03] LABS: Alanine Aminotransferase < 7 U/L (10-49); Albumin, Serum 3.9 gm/dL (3.4-4.8); Albumin/Globulin Ratio 1.6 (1.2-2.2); Alkaline Phosphatase 117 U/L (46-116); Anion Gap 9 (7-16); Aspartate Amino Transferase < 8 U/L (0-34); BUN/Creatinine Ratio 5 Ratio (12-20); Bilirubin,Total 0.4 mg/dL (0.3-1.2); Blood Urea Nitrogen 29 mg/dL (9-23); Calcium 8.5 mg/dL (8.3-10.6); Calcium (Corrected) 8.6 mg/dL (8.5-10.1); Carbon Dioxide 30.3 mMol/L (20.0-31.0); Cardiac Risk Estimate 2.5 RATIO (3.7-5.6); Chloride 97 mMol/L (98-107); Cholesterol 79 mg/dL (132-200); Creatinine (Component) 5.8 mg/dL (0.6-1.3); Estimated Creatinine Clearance 10.3 mL/min (>60); Globulin 2.4 gm/dL (2.3-3.5); Glucose 77 mg/dL (74-106); HDL Cholesterol 31 mg/dL (40-60); LDL Cholesterol,Calculated 31 mg/dL (0-130); Osmolality,Calculated 276 (275-295); Potassium 4.7 mMol/L (3.4-5.1); Sodium 136 mMol/L (136-145); Thyroid Stimulating Hormone 2.74 uIU/mL (0.55-4.78); Total Protein 6.3 gm/dL (5.7-8.2); Triglycerides 84 mg/dL (30-150); eGFR 8 See Note
[2024-09-27] MEDS: ASPIRIN EC 81 MG TABEC PO (08:26)
[2024-09-27] MEDS: DOCUSATE SOD 100 MG CAPSULE PO (08:26)
[2024-09-27] MEDS: Furosemide 40 MG TABLET PO (08:27)
[2024-09-27] MEDS: FLUoxetine HCL 10 MG CAPSULE 20 MG PO (08:27)
--- NOTE | 2024-09-27 10:40 | CHAP ---
Patient was visited by a Spiritual Care Volunteer on 09/27/2024 between 0900 and 1036 and received comfort, encouragement and/or prayer.
--- NOTE | 2024-09-27 11:12 | PD.RESPRO ---
Documentation for date of: 09/27/24 Subjective Subjective Interval history: Patient was seen and examined at bedside. Yesterday dialysis removed 2.2 L. Patient reported mild improvement of her symptoms, denied any new symptoms at this time. Today her serum creatinine is 5.8, yesterday she underwent dialysis BUN is 29, potassium 4.7 calcium 8.6, magnesium 2.0, patient next dialysis is going to be tomorrow. She is on Wednesday schedule. Exam Vital Signs Temp Pulse Resp BP Pulse Ox O2 Del Method O2 Flow Rate 97.6 F 76 16 135/80 H 98 Room Air 1 09/27/24 07:55 09/27/24 08:27 09/27/24 07:55 09/27/24 08:27 09/27/24 07:55 09/27/24 07:55 09/26/24 12:32 Narrative Exam GEN: AOx3, looks chronically ill, able to speak full sentences HEENT: NC/AC, oral mucosa moist, neck supple CVS: RRR, S1-S2 present, no murmurs appreciated RESP: Good air entry bilaterally, faint crepitations on the right side. GI: soft,non distended, non tender, NBS MSK: able to move all 4 limbs, no lower extremity edema SKIN: warm and dry FLEET MANAGER: CN II-XII and Sensation grossly intact. Objective Labs 09/27/24 04:25 09/27/24 04:25 Labs: Laboratory Results - last 24 hr 09/27/24 04:25 WBC 4.5 RBC 3.32 L Hgb 9.5 L Hct 29.2 L MCV 88 MCH 28.6 MCHC 32.5 RDW Std Deviation 40.8 Plt Count 103 L Neut % (Auto) 71 Lymph % (Auto) 18 [place] % (Auto) 7 Eos % (Auto) 3 Baso % (Auto) 0 Neut # (Auto) 3.2 Lymph # (Auto) 0.8 L [place] # (Auto) 0.3 Eos # (Auto) 0.2 Baso # (Auto) 0.0 Immature Gran # (Auto) 0.02 H Absolute Nucleated RBC 0.00 Immature Gran % 0 Nucleated RBC % 0 Sodium 136 Potassium 4.7 Chloride 97 L Carbon Dioxide 30.3 Anion Gap 9 BUN 29 H Creatinine 5.8 H* D Estim Creat Clear Calc 10.3 L eGFR 8 L* BUN/Creatinine Ratio 5 L Glucose 77 Calculated Osmolality 276 Calcium 8.5 Corrected Calcium 8.6 Magnesium 2.0 Total Bilirubin 0.4 AST < 8 ALT < 7 L Alkaline Phosphatase 117 H D Total Protein 6.3 Albumin 3.9 D Globulin 2.4 Albumin/Globulin Ratio 1.6 Triglycerides 84 Cholesterol 79 L LDL Cholesterol, Calc 31 HDL Cholesterol 31 L Cholesterol/HDL Ratio 2.5 L TSH 2.74 Quality Measures Quality Measures none Assessment & Plan Assessment Current Active Medications: Generic Name Dose Route Start Last Admin Trade Name Freq PRN Reason Stop Dose Admin Acetaminophen 650 mg 09/26/24 09:51 Acetaminophen 325 Mg Tablet PO 10/26/24 09:50 Q6H PRN Fever >100.5 Acetaminophen 650 mg 09/26/24 09:51 09/26/24 18:30 Acetaminophen 325 Mg Tablet PO 10/26/24 09:50 650 mg Q6H PRN Administration PAIN SCALE 1-3 (mild Aspirin 81 mg 09/27/24 09:00 09/27/24 08:26 Aspirin Ec 81 Mg Tabec PO 10/27/24 08:59 81 mg QDAY LISY Administration Atorvastatin Calcium 10 mg 09/26/24 21:00 09/26/24 20:45 Atorvastatin Calcium 10 Mg Tablet PO 10/26/24 20:59 10 mg HS LISY Administration Docusate Sodium 100 mg 09/27/24 09:00 09/27/24 08:26 Docusate Sod 100 Mg Capsule PO 10/27/24 08:59 100 mg QDAY LISY Administration Protocol Fluoxetine HCl 20 mg 09/27/24 09:00 09/27/24 08:27 Fluoxetine Hcl 10 Mg Capsule PO 10/27/24 08:59 20 mg QDAY LISY Administration Furosemide 40 mg 09/27/24 09:00 09/27/24 08:27 Furosemide 40 Mg Tablet PO 10/27/24 08:59 40 mg QDAY LISY Administration Heparin Sodium (Porcine) 5,000 unit 09/26/24 14:00 09/27/24 05:24 Heparin Sod Inj 5000 Unit/Ml Vial SC 10/10/24 13:59 5,000 unit Q8HR LISY Administration Labetalol HCl 10 mg 09/26/24 14:02 Labetalol Inj 5 Mg/Ml Vial 20 Ml IVP 10/26/24 14:14 Q6H PRN SBP>190 Levothyroxine Sodium 75 mcg 09/27/24 06:00 09/27/24 05:24 Levothyroxine Sodium 25 Mcg Tablet PO 10/27/24 05:59 75 mcg ACBR LISY Administration Ondansetron HCl 4 mg 09/26/24 09:51 Ondansetron Inj 2 Mg/Ml Inj 2 Ml IV 10/26/24 09:50 Q6H PRN NAUSEA OR VOMITING Protocol Plan Summary: A 64-year-old female patient with past medical history of ESRD on dialysis T//S, hypertension, anxiety, hypothyroidism, HFrEF, hyperlipidemia, came to the ED due to shortness of breath for 1 day. She reported that her symptoms started as cough for 2 days before admission but continued to worsen and today this morning when she woke up her shortness of breath kept worsening. Patient was admitted for management of hypertension emergency with possible fluid overload Assessment and plan #ESRD Patient has been diagnosed with a ESRD 4 years ago Follow-up with Dr. Morales having dialysis regularly T// Serum creatinine today 8.4, BUN 49, potassium of 4.1, not an acidotic state Patient is likely to be fluid overloaded, BNP level at his lowest point at this time of 373 Patient lying in bed comfortably, no lower extremities edema, no JVD Plan ? Pharmacy to dose medication ? Session dialysis Tomorrow ? Pharmacy to dose medications ? Strict in and out ? Will continue dialysis as per her schedule at this time Thank you for your consultation, please do not hesitate to reach out if you have any question or concern - Patient's plan and care discussed with my attending, Dr. Carmen Perez MD Internal Medicine PGY-2 Attending Provider Attestation/Addendum Patient seen and examined with resident physician Dr. Cuadra. Note reviewed, agree with additions. Patient did receive dialysis. Noted the team wants to discharge her today.
--- NOTE | 2024-09-27 11:13 | PD.RESDS ---
Planned Discharge Date 09/27/24 DS: Providers Provider Date of admission: 09/26/24 09:51 Primary care physician: Viky Wick PA-C Admitting Provider: Benjie Sadler MD Attending Provider on Admission: Jase Orozco MD Consults: 09/26/24 08:46 Consult to Nephrology Stat Comment: ESRD Consulting Provider: Luz Morales Attending Provider on DC: Jase Orozco MD Discharging Provider: Shilo Allison MD Anticipated date of discharge: 09/27/24 DS: Diagnosis Problem List Completed Was Problem List Reviewed/Reconciled?: Yes Hospital Course Hospital Course Hospital course: Patient is a 62-year-old female with past medical history of ESRD on hemodialysis Wednesday, hypertension, HFrEF 55% December 2023, anxiety, hypothyroidism, hyperlipidemia who presented to [facility] with a chief complaint of shortness of breath. Patient was recently dialyzed at her dialysis session but due to the fact that she was having dyspnea she was emergently sent to the emergency department. At presentation patient denied any chest pain, nausea vomiting, lower extremity swelling or orthopnea. In the ED patient was noted to have hypertensive urgency with a blood pressure greater than 200 and a mild troponin leak was 0.059 and elevated BNP at 373. A chest x-ray was done which revealed mild congestive heart failure and pulmonary hypertension. Patient was admitted for hypertensive urgency management and fluid overload state requiring hemodialysis. Patient's blood pressure was quickly normalized with her home antihypertensives and she received hemodialysis which improved her dyspnea. Patient required oxygen due to her fluid overload state and informed us that she does use 2 L of home O2 as needed when she has dyspnea. Patient underwent a walking test with nursing staff and was noted to desaturate into the mid 80s so oxygen was ordered for the patient. Patient already had home O2 so she did not receive additional oxygen and was safe for discharge to the long-term for use with her previous oxygen. Commended to reconcile with her health and safety director in 1 week to discuss recent hospitalization. Problem list: #Hypertensive urgency #Fluid overload #ESRD (T, TH, WED) #History of CHF #Hypothyroidism #Hyperlipidemia #Anxiety/depression Case discussed with my senior Dr. Mathur PGY-[address] Pam Allison MD PGY-1 Status at Discharge Functional status at discharge: independent ambulation Overall status at discharge: patient is progressing back to baseline Time Spent with Patient Time attestation: Total time spent providing and/or coordinating discharge services: Time spent: Greater than 30 minutes Exam Vital Signs Temp Pulse Resp BP Pulse Ox O2 Del Method O2 Flow Rate 97.6 F 76 16 135/80 H 98 Room Air 1 09/27/24 07:55 09/27/24 08:27 09/27/24 07:55 09/27/24 08:27 09/27/24 07:55 09/27/24 07:55 09/26/24 12:32 Narrative Exam Physical Exam GENERAL: NAD, AAOx3, obese HEENT: Moist mucosa. Eyes open, symmetrical, & clear CARDIO: Heart RRR, no obvious murmurs PULM: No noted coughing/dyspnea, clear to auscultation bilaterally GI: Abdomen soft, nondistended, no pain on palpation. BSx4 SKIN/MSK/EXT: Left upper extremity AV fistula, no pain on palpation. Pedal pulses present B/L NEURO: AAOx3, no focal neuro deficits, able to move all 4 extremities Discharge Plan Plan Patient Disposition: HOME (Self Care) Care Plan Goals: Recommend following up with your dialysis appointments and follow-up with health and safety director Dr Morales within 1 week of discharge from hospital. Please follow-up with your primary care physician within 3 to 5 days of discharge from hospital. In case of worsening symptoms please return to the emergency room. Prescriptions/Referrals Prescriptions/Med Rec: New aspirin [Ecotrin Low Strength] 81 mg Tablet,Delayed Release (Dr/Ec) 81 mg PO QDAY 30 Days Qty: 30 0RF atorvastatin 40 mg tablet 40 mg PO QDAY Qty: 30 0RF Continued furosemide 40 mg tablet 40 mg PO DAILY levothyroxine 75 mcg tablet 75 mcg PO DAILY ergocalciferol (vitamin D2) 1,250 mcg (50,000 unit) capsule 1,250 mcg PO DAILY fluoxetine 20 mg capsule 20 mg PO DAILY Veltassa 8.4 gram powder in packet 8.4 g PO DAILY Hold Instructions: Resume on 01/18/24. To be evaluated by PCP sevelamer carbonate 800 mg tablet 800 mg PO TID loratadine 10 mg tablet 10 mg PO DAILY Hold Instructions: Resume on 01/18/24. To be evaluated by PCP in outpatient setting permethrin 5 % cream 1 applic topical Q14D Qty: 60 0RF Rx Instructions: apply second treatment 14 days after first treatment if live lice remain hydrocodone-acetaminophen 5-325 mg tablet 1 tab PO BID MDD 10 PRN (Reason: pain) Qty: 10 0RF Discontinued atorvastatin 10 mg tablet 10 mg PO DAILY Referrals: Viky Wick PA-C [Primary Care Provider] - Patient/Caregiver Discharge Instructions Education Materials: What Is Heart Failure, 5 Steps for Eating Healthier, Coping with Heart Failure, CKD Dc Print Language: Czech Stand Alone Forms: Devi Award Info., Patient Portal Info Letter, Work/Release Restrictions Discharge Order Discharge Orders: Discharge (Routine); Ordered 09/27/24 Ordered By: Shilo Allison Quality Discharge Quality Measures none MD Attestestation MD Attestation I reviewed labs, imaging, EKG, home medications and prior available records. Face to face evaluation was performed by me. I have personally examined the patient and discussed assessment and plan with the IM team. I reviewed the resident note and agree with the plan with exceptions as below. Acute hypoxic respiratory failure: In the setting of volume overload from missing hemodialysis session. Oxygen was weaned off. She has an oxygen tank at home with concentrator if oxygen is needed. ESRD on hemodialysis: Continue hemodialysis as per nephrology schedule. Outpatient follow-up with nephrology. Uncontrolled hypertension: Resume home medications. Time spent is 40 minutes. More than 50% of the time was spent on patient education and coordination of care.
--- NOTE | 2024-09-27 11:47 | PC.NURSE ---
PATIENT HAS ORDER FOR DISCHARGE. THIS AM PATIENT NOTED TO BE DESATURATING. PROBE CHANGED AND PLACE ON 2L VIA NC. O2 SAT INCREASED TO 96-98. PATIENT LEFT ON ROOM AIR TO CHECK O2 SAT. PATIENT SLOWLY OVER 3-5 MINS AGAIN SATING AT 86-91% ON RA. DR CERON CALLED AND INFORMED. STATED TO PUT PULSEOX ON EAR. PULSE OX PUT ON EAR AND O2 SAT INITIALLY 95% BY THE TIME I WALKED TO THE NURSES STATION 02 SAT 90% HAS GONE LOW 86%. CONTINUES TO FLUCTUATE BETWEEN 86 - 91%. NOW IS 84%
--- NOTE | 2024-09-27 11:59 | PC.NURSE ---
DR CERON CALLED AND INFORMED THAT O2 SAT STAYED THE SAME AFTER PUTTING THE PROBE ON THE EAR. O2 SAT 84-90%.
--- NOTE | 2024-09-27 12:05 | PC.NURSE ---
DR CERON CALLED AND INFORMED THAT O2 SAT STILL LOW WHEN PROBE CHANGED TO THE EAR. AT REST O2 SAT84% ON RA.
[2024-09-27] MEDS: guaiFENesin SYRUP 200 MG/10 ML UDC PO (12:13)
--- NOTE | 2024-09-27 12:15 | PC.NURSE ---
WENT TO GIVE PATIENT COUGH MED ORDERED. PATIENT SITTING UP AND EATING LUNCH O2 SAT RA 87%.
--- NOTE | 2024-09-27 12:44 | PC.SS ---
SS met with pt who states she resides at the [facility]. SS has spoken to Stacey from [facility] and they are able to accommodate home O2 due to pt residing ath the [facility]. Pt explained their are people at the long term who use O2. SS has sent DME order for O2 using [employer].
--- NOTE | 2024-09-27 13:50 | PC.SS ---
Addendum entered by Maria C Acevedo 09/27/24 14:38: SS met with pt who states her son has O2 concentrator. SS has called and spoke to son who has confirmed patient has O2 concentrator. Small O2 tank has been delivered to bedside. Pt states she has appropriate clothes (shirt, pants, sweater, shoes, and socks). Pt states family will provide transportation. Pt refused community resources. Bedside nurse, Kalli is aware to order pt sack lunch to take with her. Pt will return to [facility]. Original Note: SS was informed by Reyes from [facility] who states pt is already established to them and the address provided was [address] [place] [address]. SS met with pt to inform her and pt states the O2 concentrator is possibly at her son's house. Pt is aware [facility] has not picked up home O2. Pt is aware [facility] will deliver another O2 concentrator. SS attempted to contact patient's son, Stephan at [phone] and her dtr in law, Yasmin [phone] but was only able to leave voicemail. [facility] will deliver small O2 tank if pt finds her O2 concentrator. Wean down O2.
== END 2024-09-27 15:25 | disposition home or self-care (01) ==
LOC: SERX 08:55 → SERHOLD 11:01 → S2NX 18:25
PROVIDERS: Student in an Organized Health Care Education/Training Program; Admitting Provider Internal Medicine; Emergency Provider Emergency Medicine; PCP Physician Assistant; Visit Provider Student in an Organized Health Care Education/Training Program
DX: J96.01 Acute respiratory failure with hypoxia (principal); I16.1 Hypertensive emergency; E03.9 Hypothyroidism, unspecified; E11.22 Type 2 diabetes mellitus with diabetic chronic kidney disease; E11.51 Type 2 diabetes mellitus with diabetic peripheral angiopathy without gangrene; E27.1 Primary adrenocortical insufficiency; E66.9 Obesity, unspecified; E78.00 Pure hypercholesterolemia, unspecified; I27.20 Pulmonary hypertension, unspecified; N18.6 End stage renal disease; Z99.2 Dependence on renal dialysis; E87.70 Fluid overload, unspecified; E78.5 Hyperlipidemia, unspecified; I13.2 Hypertensive heart and chronic kidney disease with heart failure and with stage 5 chronic kidney disease, or end stage renal disease; I50.22 Chronic systolic (congestive) heart failure; K21.9 Gastro-esophageal reflux disease without esophagitis; Z68.32 Body mass index [BMI] 32.0-32.9, adult
CPT/HCPCS: 36415; 71046; 80053; 80061; 80307; 81001; 83735; 83880; 84443; 84484; 85025; 85610; 85730; 87081; 87400; 90935; 93005; 96372; 96374; 96375; 99285; G0378; J1643; J1940; J2270; A9270; G0257

== ENCOUNTER 2024-09-30 18:03 | Emergency (ER) | payer MEDICAID, SELFPAY ==
[2024-09-30] VITALS (8 sets, daily range): BP systolic 117–152; BP diastolic 60–81; PULSE 80–88; RESP 16–885; TEMP 37.8–38.7; O2SAT 85–100; BMI 33.5
--- NOTE | 2024-09-30 18:34 | XR_ITS ---
Examination: AP chest single view Technique one AP portable upright chest single view Exam date and time: September 30, 2024 1841 hrs. Indications: Sepsis today. Findings: Mild heart failure Mild enlargement cardiac contour with prominent vascular congestion and early septal edema Masslike area overlying the right hilum Prominent osteopenia Impression: Mild heart failure Recommend CT chest follow-up to exclude pulmonary mass, 4 cm, overlying the right hilar region
--- NOTE | 2024-09-30 18:34 | EKG_ITS ---
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
--- NOTE | 2024-09-30 18:36 | PD.EDADULT ---
ED General RME/HPI General Chief complaint: Shortness of Breath/Dyspnea Stated complaint: SOB Time Seen by Provider: 09/30/24 18:07 Arrival date/time: 09/30/24 18:03 RME / HPI RME / HPI narrative: 64-year-old female patient with significant history of hypothyroidism, end-stage renal disease on hemodialysis, congestive heart failure, hypertension, was brought in by EMS for evaluation regarding cough. Patient's been having worsening cough for the last 4 days, associated with generalized body weakness, body aches, and fever. Patient lives in the skilled nursing for homeless. Patient had dialysis today. Denies any abdominal pain. Denies any chest pain. Sepsis alert was initiated right away for fever, cough, and ESRD Related Data Home Medications ?Medication ?Instructions ?Recorded ?Confirmed ergocalciferol (vitamin D2) 1,250 1,250 mcg PO DAILY 01/09/24 01/09/24 mcg (50,000 unit) capsule fluoxetine 20 mg capsule 20 mg PO DAILY 01/09/24 01/09/24 furosemide 40 mg tablet 40 mg PO DAILY 01/09/24 01/09/24 levothyroxine 75 mcg tablet 75 mcg PO DAILY 01/09/24 01/09/24 loratadine 10 mg tablet 10 mg PO DAILY 01/09/24 01/09/24 patiromer calcium sorbitex 8.4 8.4 g PO DAILY 01/09/24 01/09/24 gram oral powder packet (Veltassa) sevelamer carbonate 800 mg tablet 800 mg PO TID 01/09/24 01/09/24 Previous Rx's ?Medication ?Instructions ?Recorded permethrin 5 % topical cream 1 applic topical Q14D 2 doses #60 01/11/24 grams hydrocodone 5 mg-acetaminophen 325 1 tab PO BID PRN pain #10 tabs 05/09/24 mg tablet aspirin 81 mg tablet,delayed 81 mg PO QDAY 30 days #30 tabs 09/27/24 release (Ecotrin Low Strength) atorvastatin 40 mg tablet 40 mg PO QDAY #30 tabs 09/27/24 amoxicillin 875 mg-potassium 1 tab PO BID #14 tabs 09/30/24 clavulanate 125 mg tablet azithromycin 250 mg tablet See Rx Instructions PO .COMPLEX #6 09/30/24 (Zithromax Z-Alverto) tabs Allergies Allergy/AdvReac Type Severity Reaction Status Date / Time peach Allergy Severe SKIN RASH Verified 05/09/24 16:59 Review of Systems Review of Systems Narrative Review of Systems: Review of system reviewed and within normal limits except mentioned in HPI ED Exam Narrative Physical exam: VITAL SIGNS: Reviewed. GENERAL APPEARANCE: Alert and interactive, follows commands, no acute distress, HEAD AND FACE: Non-traumatic. ENT: PERRL, pink conjunctivitis, eyelid no trauma, Mucous membrane moist. NECK: Supple, nontender, no nuchal rigidity. CHEST: No tenderness, no crepitus, no paradoxical movement, no retractions. LUNGS:Symmetric,+ bibasal rales, no wheezing, no ronchi, no stridor, decreased breath sounds bilaterally. HEART: Regular rate, regular rhythm, no murmur, no gallops. ABDOMEN: Soft, positive bowel sounds, nondistended, no guarding, nontender, no rebound, no masses, RECTAL: Deferred. GENITAL: Deferred. NEUROLOGICAL: Gross motor function intact sensory function intact, Appropriate for age. MUSCULOSKELETAL: low back nontender, full range of motion. EXTREMITIES: Nontender, full range of motion. SKIN: Color pink, dry, no rash, no lacerations, no abrasions, no contusions. LYMPHATICS: Deferred. Course Quality Measures none Orders Category Date Time Status Bedside COVID-19 Antigen Test NOW Care 09/30/24 18:35 Active Bedside Influenza A&B Antigen Test NOW Care 09/30/24 18:35 Completed [employer] STAT Care 09/30/24 18:34 Active Continuous Pulse Oximetry STAT Care 09/30/24 18:34 Completed EKG (ED ONLY) *Do not use* NOW Care 09/30/24 18:34 Completed In and Out Catheter X1PRN Care 09/30/24 18:34 Active Insert IV NOW Care 09/30/24 18:34 Active NPO STAT Care 09/30/24 18:34 Active Strict Intake and Output Routine Care 09/30/24 18:[address] chest wo con Stat Exams 09/30/24 20:41 Stop Req EKG (ED Only) Stat Exams 09/30/24 18:34 Draft XR chest 1V SEPSIS PROTOCOL Stat Exams 09/30/24 18:34 Completed B-Type Natriuretic Peptide Stat Lab 09/30/24 18:58 Completed Blood Culture (Lab) Stat Lab 09/30/24 18:50 Received CBC Stat Lab 09/30/24 18:58 Completed Comprehensive Metabolic Panel Stat Lab 09/30/24 18:58 Results LDH (Lactate Dehydrogenase) Stat Lab 09/30/24 18:58 Results Lactate (Lactic Acid) Stat Lab 09/30/24 18:58 Completed Lipase Stat Lab 09/30/24 18:58 Results Magnesium Stat Lab 09/30/24 18:58 Results Partial Thromboplastin Time Stat Lab 09/30/24 18:58 Completed Phosphorous Stat Lab 09/30/24 18:58 Results Procalcitonin Stat Lab 09/30/24 18:58 Results Prothrombin Time with INR Stat Lab 09/30/24 18:58 Completed Troponin I Stat Lab 09/30/24 18:58 Results Urinalysis Stat Lab 09/30/24 18:34 Ordered Urine Culture Stat Lab 09/30/24 18:34 Ordered Acetaminophen Tab [Tylenol ES Tab] Med 09/30/24 18:33 Discontinued 1,000 mg PO X1 ONE cefTRIAXone/D5w 1gm IV premix [Rocephin/D5w 1gm IV Med 09/30/24 18:35 Discontinued premix] 50 ml IV X1 Oxygen Delivery NOW RT 09/30/24 18:34 Active Vital Signs Vital signs: Vital Signs Pulse Rate 85 09/30/24 18:34 Respiratory Rate 16 09/30/24 18:34 Pulse Oximetry (%) 100 09/30/24 18:34 Oxygen Flow Rate 4 09/30/24 18:34 [facility] Patient data External records reviewed:: None Clinical information provided by:: patient Social determinants that could affect healthcare access:: none Patient has the following chronic illnesses:: ESRD on hemodialysis, COPD, congestive heart failure How is presenting disease/condition affected by chronic disease/condition?: exacerbated by Evaluation data The following diagnostics were reviewed and interpreted by me:: lab results, radiology exam(s) and EKG tracing(s) Lab and/or radiology exams considered but not ordered:: None Interpretation Summary: EKG as interpreted by me showed sinus rhythm, ventricular rate of 87 bpm, IL intervals 173 MS, no ST segment elevation depression noted. Chest x-ray showed Mild heart failure Recommend CT chest follow-up to exclude pulmonary mass, 4 cm, overlying the right hilar region Medications Medications considered but not ordered:: None supraduction Medication administrations:: Medication Administration History Discontinued Medications Acetaminophen (Acetaminophen 500 Mg Tablet) 1,000 mg PO X1 ONE Stop: 09/30/24 18:34 Last Admin: 09/30/24 18:56 Dose: 1,000 mg Documented By: BABAK Ceftriaxone Sodium/Dextrose (Rocephin/D5w 1gm Iv Premix) 50 mls @ 100 mls/hr IV X1 ONE Stop: 09/30/24 19:04 Last Infusion: 09/30/24 19:56 Dose: Infused Documented By: Admin: 09/30/24 18:57 Dose: 100 mls/hr Documented By: BABAK Ceftriaxone IM. Tylenol Consultations Consultation(s) initiated? (list below): No Diagnosis Differential Diagnosis ED Complaint MDM: Cough, pneumonia, fever, sepsis Most likely diagnosis given after review of the tests above:: Cough, fever, ESRD Admission Indicated Admission indicated?: not indicated Explain why admission is indicated or not indicated:: Stable Admission Request Was there a request for admission?: No Disposition Plan Disposition Plan: Discharge Discharge Attestation Discharge Attestation: The patient was given an opportunity to ask questions and understood the discharge instructions. Discharge instructions specifically effects, indications for sooner follow up or return to the emergency department, and the expected course of current diagnosis. Patient condition: Stable Medical Decision Making MDM Narrative MDM Narrative: significant history of hypothyroidism, end-stage renal disease on hemodialysis, congestive heart failure, hypertension, was brought in by EMS for evaluation regarding cough. Patient's been having worsening cough for the last 4 days, associated with generalized body weakness, body aches, and fever. Patient lives in the skilled nursing for homeless. Patient had dialysis today. Denies any abdominal pain. Denies any chest pain. Sepsis alert was initiated right away for fever, cough, and ESRD Patient's workup all came back with no leukocytosis. Creatinine 4.8, BUN is normal, potassium is normal. Chest x-ray came back with Mild heart failure Recommend CT chest follow-up to exclude pulmonary mass, 4 cm, overlying the right hilar region. Results of chest x-ray was discussed with her, I told her to closely follow-up with PCP and for outpatient CT scan of the chest to rule out malignancy of the lung. Patient agrees with the plan. Patient is satting 99% on 2 L. Without oxygen patient dropped to mid 80s. Patient will be discharged home on antibiotics since patient is having multiple comorbidities, patient is febrile and coughing. Patient told me that she had oxygen at the homeless skilled nursing. Differential Diagnosis Differential Diagnosis: Cough, pneumonia, fever, sepsis Lab Data 09/30/24 18:58 09/30/24 18:58 Labs: Lab Results 09/30/24 Range/Units 18:58 WBC 3.7 (3.6-11.0) Thou/mm3 RBC 3.42 L (4.00-5.20) Miln/mm3 Hgb 9.6 L (12.0-16.0) g/dL Hct 30.3 L (36.0-46.0) % MCV 89 (80-100) fL MCH 28.1 (25.0-35.0) pg MCHC 31.7 (31.0-37.0) g/dl RDW Std Deviation 39.8 (36.4-46.3) fL Plt Count 100 L (140-440) Thou/mm3 Neut % (Auto) 70 (37-80) % Lymph % (Auto) 15 (10-50) % Blount % (Auto) 11 (0-12) % Eos % (Auto) 3 (0-10) % Baso % (Auto) 0 (0-2.5) % Neut # (Auto) 2.6 (1.8-7.7) Thou/mm3 Lymph # (Auto) 0.6 L (1.0-4.8) Thou/mm3 Blount # (Auto) 0.4 (0.0-0.8) Thou/mm3 Eos # (Auto) 0.1 (0.0-0.5) Thou/mm3 Baso # (Auto) 0.0 (0.0-0.2) Thou/mm3 Immature Gran # (Auto) 0.01 H (0.00-0.00) Thou/mm3 Absolute Nucleated RBC 0.00 (0.00-0.00) Thou/mm3 Immature Gran % 0 (0-0) % Nucleated RBC % 0 (0) /100 WBC PT 11.9 (9.0-12.2) Seconds INR 1.1 (0.9-1.3) APTT 38.3 H (22.0-36.0) Seconds Sodium 138 (136-145) mMol/L Potassium 4.0 (3.4-5.1) mMol/L Chloride 97 L (98-107) mMol/L Carbon Dioxide 33.1 H (20.0-31.0) mMol/L Anion Gap 8 (7-16) BUN 18 (9-23) mg/dL Creatinine 4.8 H* D (0.6-1.3) mg/dL Estim Creat Clear Calc 12.6 L (>60) mL/min eGFR 10 L* (60 - ) See Note BUN/Creatinine Ratio 4 L (12-20) Ratio Glucose 119 H (74-106) mg/dL Calculated Osmolality 278 (275-295) Lactic Acid 0.6 (0.4-2.0) mMol/L Calcium 9.4 (8.3-10.6) mg/dL Corrected Calcium 9.4 (8.5-10.1) mg/dL Phosphorus 4.2 (2.4-5.1) mg/dL Magnesium 2.1 (1.6-2.6) mg/dL Total Bilirubin 0.3 (0.3-1.2) mg/dL AST 11 (0-34) U/L ALT < 7 L (10-49) U/L Alkaline Phosphatase 111 (46-116) U/L Troponin I 0.051 H* (0.0-0.045) ng/mL B-Natriuretic Peptide 154 H (0-100) pg/mL Total Protein 7.0 (5.7-8.2) gm/dL Albumin 4.1 (3.4-4.8) gm/dL Globulin 2.9 (2.3-3.5) gm/dL Albumin/Globulin Ratio 1.4 (1.2-2.2) Lipase 38 (12-53) U/L Procalcitonin 0.89 H (0.0-0.49) ng/ml Discharge Plan Plan Patient Disposition: HOME (Self Care) Disposition Comment: Stable Prescriptions/Referrals Prescriptions/Med Rec: New azithromycin [Zithromax Z-Alverto] 250 mg tablet See Rx Instructions .ROUTE .COMPLEX Qty: 6 0RF Rx Instructions: For 250 mg dose pack: take 500 mg today (day 1), then 250 mg for 4 days (days 2-5) amoxicillin-pot clavulanate 875-125 mg tablet 1 tab PO BID Qty: 14 0RF No Action furosemide 40 mg tablet 40 mg PO DAILY levothyroxine 75 mcg tablet 75 mcg PO DAILY ergocalciferol (vitamin D2) 1,250 mcg (50,000 unit) capsule 1,250 mcg PO DAILY fluoxetine 20 mg capsule 20 mg PO DAILY Veltassa 8.4 gram powder in packet 8.4 g PO DAILY Hold Instructions: Resume on 01/18/24. To be evaluated by PCP sevelamer carbonate 800 mg tablet 800 mg PO TID loratadine 10 mg tablet 10 mg PO DAILY Hold Instructions: Resume on 01/18/24. To be evaluated by PCP in outpatient setting permethrin 5 % cream 1 applic topical Q14D Qty: 60 0RF Rx Instructions: apply second treatment 14 days after first treatment if live lice remain hydrocodone-acetaminophen 5-325 mg tablet 1 tab PO BID MDD 10 PRN (Reason: pain) Qty: 10 0RF aspirin [Ecotrin Low Strength] 81 mg Tablet,Delayed Release (Dr/Ec) 81 mg PO QDAY 30 Days Qty: 30 0RF atorvastatin 40 mg tablet 40 mg PO QDAY Qty: 30 0RF Referrals: Viky Wick PA-C [Primary Care Provider] - 10/02/24 Problem List Clinical Impression: Cough, Fever, ESRD on hemodialysis Patient/Caregiver Discharge Instructions Discharge Activity: activity as tolerated Education Materials: Deep Coughing Additional Instructions: Thank you for the opportunity for serving you today. You are stable for discharged . You are advised to: Follow-up with your PCP in 1 to 2 days Return to ED for worsening of symptoms Take medication as prescribed Print Language: [place] Citizen Stand Alone Forms: Devi Award Info., Patient Portal Info Letter
[2024-09-30] MEDS: ACETAMINOPHEN 500 MG TABLET 1000 MG PO (18:56)
[2024-09-30] MEDS: cefTRIAXone/D5w 1gm IV premix 50 ML IV (18:57)
[2024-09-30 19:11] LABS: Lactate (Lactic Acid) 0.6 mMol/L (0.4-2.0)
[2024-09-30 19:12] LABS: Basophils % (Auto) 0 % (0-2.5); Eosinophils # (Auto) 0.1 Thou/mm3 (0.0-0.5); Eosinophils % (Auto) 3 % (0-10); Hematocrit 30.3 % (36.0-46.0); Hemoglobin 9.6 g/dL (12.0-16.0); Immature Granulocytes % (Auto) 0 % (0-0); Immature Granulocytes Auto 0.01 Thou/mm3 (0.00-0.00); Lymphocytes # (Auto) 0.6 Thou/mm3 (1.0-4.8); Lymphocytes % (Auto) 15 % (10-50); Mean Corpuscular HGB Conc 31.7 g/dl (31.0-37.0); Mean Corpuscular Hemoglobin 28.1 pg (25.0-35.0); Mean Corpuscular Volume 89 fL (80-100); Monocytes # (Auto) 0.4 Thou/mm3 (0.0-0.8); Monocytes % (Auto) 11 % (0-12); Neutrophils # (Auto) 2.6 Thou/mm3 (1.8-7.7); Neutrophils % (Auto) 70 % (37-80); Nucleated Red Blood Cell % 0 /100 WBC (0); Platelet Count 100 Thou/mm3 (140-440); RDW Standard Deviation 39.8 fL (36.4-46.3); Red Blood Count 3.42 Miln/mm3 (4.00-5.20); White Blood Count 3.7 Thou/mm3 (3.6-11.0)
[2024-09-30 19:27] LABS: INR 1.1 (0.9-1.3); Partial Thromboplastin Time 38.3 Seconds (22.0-36.0); Prothrombin Time 11.9 Seconds (9.0-12.2)
[2024-09-30 19:32] LABS: B-Type Natriuretic Peptide 154 pg/mL (0-100)
[2024-09-30 19:37] LABS: Alanine Aminotransferase < 7 U/L (10-49); Albumin, Serum 4.1 gm/dL (3.4-4.8); Albumin/Globulin Ratio 1.4 (1.2-2.2); Alkaline Phosphatase 111 U/L (46-116); Anion Gap 8 (7-16); Aspartate Amino Transferase 11 U/L (0-34); BUN/Creatinine Ratio 4 Ratio (12-20); Bilirubin,Total 0.3 mg/dL (0.3-1.2); Blood Urea Nitrogen 18 mg/dL (9-23); Calcium 9.4 mg/dL (8.3-10.6); Calcium (Corrected) 9.4 mg/dL (8.5-10.1); Carbon Dioxide 33.1 mMol/L (20.0-31.0); Chloride 97 mMol/L (98-107); Creatinine (Component) 4.8 mg/dL (0.6-1.3); Estimated Creatinine Clearance 12.6 mL/min (>60); Globulin 2.9 gm/dL (2.3-3.5); Glucose 119 mg/dL (74-106); Lipase 38 U/L (12-53); Magnesium 2.1 mg/dL (1.6-2.6); Osmolality,Calculated 278 (275-295); Phosphorous 4.2 mg/dL (2.4-5.1); Sodium 138 mMol/L (136-145); eGFR 10 See Note
[2024-09-30 19:38] LABS: Troponin I 0.051 ng/mL (0.0-0.045)
[2024-09-30 19:50] LABS: Procalcitonin 0.89 ng/ml (0.0-0.49)
[2024-09-30 21:53] LABS: LDH (Lactate Dehydrogenase) 126 U/L (120-246)
== END 2024-09-30 21:14 | disposition home or self-care (01) ==
PROVIDERS: Nurse Practitioner Family; Emergency Provider Emergency Medicine; PCP Physician Assistant
DX: R05.9 Cough, unspecified (principal); R50.9 Fever, unspecified; I13.2 Hypertensive heart and chronic kidney disease with heart failure and with stage 5 chronic kidney disease, or end stage renal disease; I50.9 Heart failure, unspecified; N18.6 End stage renal disease; Z99.2 Dependence on renal dialysis; E03.9 Hypothyroidism, unspecified; Z59.01 Sheltered homelessness
CPT/HCPCS: 36415; 71045; 80053; 81001; 83605; 83615; 83690; 83735; 83880; 84100; 84145; 84484; 85025; 85610; 85730; 87040; 87086; 87400; 87811; 93005; 96365; 99285; J0696; A9270

== ENCOUNTER 2024-10-12 03:24 | Emergency (ER) | payer MEDICAID, SELFPAY ==
[2024-10-12 03:25] VITALS: PULSE 77; RESP 17; O2SAT 92
[2024-10-12 03:32] VITALS: BP 167/76; PULSE 71; RESP 18; TEMP 36.6; O2SAT 97
--- NOTE | 2024-10-12 03:43 | PD.EDFALL ---
ED Fall Injury RME/HPI General Chief Complaint: Fall Stated Complaint: Fell after rolling out of bed/bloody nose Time Seen by Provider: 10/12/24 03:42 Source: patient Arrival date/time: 10/12/24 03:24 64-year-old female with a history of hyperlipidemia, type 2 diabetes on dialysis Wednesday, hypothyroidism presents to the emergency room with a chief complaint of a fall. Patient states she rolled off of her bed and hit her face causing her to have a bloody nose. Patient states her bed is 1 foot off the ground. Mode of arrival: ambulatory Limitations: no limitations Related Data Home Medications ?Medication ?Instructions ?Recorded ?Confirmed ergocalciferol (vitamin D2) 1,250 1,250 mcg PO DAILY 01/09/24 01/09/24 mcg (50,000 unit) capsule fluoxetine 20 mg capsule 20 mg PO DAILY 01/09/24 01/09/24 furosemide 40 mg tablet 40 mg PO DAILY 01/09/24 01/09/24 levothyroxine 75 mcg tablet 75 mcg PO DAILY 01/09/24 01/09/24 loratadine 10 mg tablet 10 mg PO DAILY 01/09/24 01/09/24 patiromer calcium sorbitex 8.4 8.4 g PO DAILY 01/09/24 01/09/24 gram oral powder packet (Veltassa) sevelamer carbonate 800 mg tablet 800 mg PO TID 01/09/24 01/09/24 Previous Rx's ?Medication ?Instructions ?Recorded permethrin 5 % topical cream 1 applic topical Q14D 2 doses #60 01/11/24 grams hydrocodone 5 mg-acetaminophen 325 1 tab PO BID PRN pain #10 tabs 05/09/24 mg tablet aspirin 81 mg tablet,delayed 81 mg PO QDAY 30 days #30 tabs 09/27/24 release (Ecotrin Low Strength) atorvastatin 40 mg tablet 40 mg PO QDAY #30 tabs 09/27/24 amoxicillin 875 mg-potassium 1 tab PO BID #14 tabs 09/30/24 clavulanate 125 mg tablet azithromycin 250 mg tablet See Rx Instructions PO .COMPLEX #6 09/30/24 (Zithromax Z-Alverto) tabs Allergies Allergy/AdvReac Type Severity Reaction Status Date / Time peach Allergy Severe SKIN RASH Verified 05/09/24 16:59 Review of Systems Review of Systems Systems Reviewed: All systems reviewed, normal except as documented Constitutional Constitutional: Reports system reviewed and no additional complaints, except as documented, Denies fatigue, Denies fever(s), Denies headache(s) and Denies weakness Eyes Eyes: Reports system reviewed and no additional complaints, except as documented, Denies blurry vision and Denies change in vision ENT Ears, Nose, Mouth, and Throat: Reports system reviewed and no additional complaints, except as documented, Denies otalgia, Denies headache(s), Denies nasal congestion, Denies throat swelling and Denies vertigo Cardiovascular Cardiovascular: Reports system reviewed and no additional complaints, except as documented, Denies chest pain, Denies dyspnea and Denies dyspnea on exertion Respiratory Respiratory: Reports system reviewed and no additional complaints, except as documented, Denies chest congestion, Denies cough, Denies dyspnea, Denies dyspnea on exertion and Denies wheezing Gastrointestinal Gastrointestinal: Reports system reviewed and no additional complaints, except as documented, Denies abdominal pain, Denies cramping, Denies nausea and Denies vomiting Genitourinary Genitourinary: Reports system reviewed and no additional complaints, except as documented Musculoskeletal Musculoskeletal: Reports system reviewed and no additional complaints, except as documented and Denies back pain Integumentary/Breasts Skin/Breast: Reports system reviewed and no additional complaints, except as documented and Denies wounds Neurologic Neurologic: Reports system reviewed and no additional complaints, except as documented, Denies confusion, Denies headache(s), Denies lack of coordination, Denies vertigo and Denies weakness Psychiatric Psychiatric: Reports system reviewed and no additional complaints, except as documented, Denies anxiety, Denies confusion, Denies depression, Denies paranoia, Denies suicidal ideation and Denies tactile hallucinations Endocrine Endocrine: Reports system reviewed and no additional complaints, except as documented and Denies fatigue Hematologic/Lymphatic Hematologic/Lymphatic: Reports system reviewed and no additional complaints, except as documented and Denies lymphadenopathy Allergic/Immunologic Allergic/Immunologic: Reports system reviewed and no additional complaints, except as documented, Denies throat swelling, Denies urticaria and Denies wheezing Past Medical History Past Medical History NEUROLOGIC: Negative Neurological Disorders, Cerebrovascular Accident, Transient Ischemic Attacks (TIA), Dementia, Alzheimer's Disease, Parkinson's Disease, Brain Tumor, Meningitis, Seizures, Epilepsy, Multiple Sclerosis, Cerebral Palsy, Amyotrophic Lateral Sclerosis (ALS/Nasreen Gehrig's), Guillain-[place] Syndrome, Spina Bifida, Paralysis, Peripheral Neuropathy, Lopez's Palsy, Subdural Hematoma, Migraine, Head Trauma, Spinal Cord Injury or Traumatic Brain Injury CARDIAC: Positive Cardiac Disorders, Hypercholesterolemia, Edema and Hypertension; Negative Myocardial Infarction, Cardiac Arrhythmia, Atrial Fibrillation, Angina, Heart Murmur, Coronary Artery Disease, Atherosclerotic Heart Disease, Peripheral Vascular Disease, Aneurysm, Congestive Heart Failure, Congenital Heart Disease, Valvular Heart Disease, Rheumatic Fever, Cardiomyopathy, Pericarditis, Cellulitis, Deep Vein Thrombosis, Hypotension or Varicose Veins RESPIRATORY: Negative Chronic Obstructive Pulmonary Disease (COPD), Asthma, Bronchitis, Emphysema, Pneumonia, Pulmonary Fibrosis, Tuberculosis, Pulmonary Embolism, Pulmonary Edema or Sleep Apnea GASTROINTESTINAL: Positive Gastrointestinal Disorders, Gall Bladder Disease and Obesity; Negative Hepatitis, Cirrhosis, Pancreatitis, Celiac Disease, Gastrointestinal Bleed, Esophageal Varices, Newton's Esophagus, Colitis, Ulcerative Colitis, Diverticulitis, Diverticulosis, Ulcer, Colorectal Cancer, Irritable Bowel, Crohn's Disease, Obstructive Bowel, Hiatal Hernia, Hemorrhoids or Gastroesophageal Reflux Disease GENITOURINARY: Positive Renal Disease and Dialysis; Negative Genitourinary Disorders, Kidney Stones, Polycystic Kidney Disease, Neurogenic Bladder, Inguinal Hernia, Prostate Cancer or Benign Prostatic Hyperplasia REPRODUCTIVE: Positive Endometriosis and Previous Pregnancies; Negative Breast Cancer or Testicular Cancer MUSCULOSKELETAL: Negative Musculoskeletal Disorders, Muscular Dystrophy, Myasthenia Gravis, Marfan's Syndrome, Arthritis, Rheumatoid Arthritis, Osteoporosis, Degenerative Disk Disease, Gout, Scoliosis, Carpal Tunnel Syndrome, Fibromyalgia, Fractures, Degenerative Joint Disease, Osteomyelitis or Poliovirus ENT: Negative Cataracts, Glaucoma, Blind, Retinal Detachment, Macular Degeneration, Ear Infection, Deafness, Head Trauma or Eye Prosthesis ENDOCRINE: Positive Endocrine Disorders and Hypothyroidism; Negative Diabetes Mellitus Type 1, Diabetes Mellitus Type 2, Hypoglycemia, Batool's Syndrome, Miguel's Disease, Hyperthyroidism, Parathyroid Disease, Pituitary Disease, Systemic Lupus Erythematosus, Syndrome of Inappropriate Antidiuretic Hormone (SIADH), Adrenal Disease or Graves' Disease HEMATOLOGIC: Negative Blood Disorders, Anemia, Leukemia, Hemophilia, Thalassemia, Sickle Cell Disease or Clotting Problems PSYCHO/SOCIAL: Positive Depression and Anxiety; Negative Psychiatric Problems, Schizophrenia, Recreational Drug Use, Bipolar Disorder, Behavior Problems, Self-Mutilation, Attention Deficit Disorder, Attention Deficit Hyperactivity Disorder, Depression, Post Traumatic Stress Disorder or Eating Disorder OTHER HISTORY: Positive Hospitalization and Chicken Pox; Negative Autoimmune Disease, Autism, Shingles, Falls, Blood Transfusions, Anesthesia Reactions, Organ Transplant, Chemotherapy, Radiation Therapy, MRSA, Human Immunodeficiency Virus (HIV), Measles, Mumps, Rubella ([place] Measles), Pertussis, Clostridium Difficile, Cancer, Breast Cancer, Cervical Cancer, Colorectal Cancer, Lung Cancer, Prostate Cancer or Testicular Cancer Family History FAMILY HISTORY: Positive Family Cardiac Disorders, Family Gastrointestinal Problems and Family Surgery; Negative Family Psychiatric Problems, Family Respiratory Disorders, Family Cancer or Family Anesthesia Reaction Surgical History SURGICAL: Positive Abdominal Surgery, Hysterectomy and Tubal Ligation; Negative Cardiac Surgery, Open Heart Surgery, Coronary Artery Bypass Graft, Valve Replacement, Vascular Surgery, Coronary Stent, Cardiac Catheterization, Pacemaker, Angiogram, Auto Implanted Cardiovert Defib, Carotid Endarterectomy, Endocrine Surgery, Thyroidectomy, Ear Surgery, Tympanostomy Tube, Eye Surgery, Nose Surgery, Oral Surgery, Tonsillectomy, Adenoidectomy, Gastric Bypass Surgery, Gastrostomy, Bowel Surgery, Nephrectomy, Transurethral Resection, Joint Replacement, Amputation, Open Reduction Internal Fixation, Arthroscopy, Neurologic Surgery, Brain Shunt, Mastectomy, Lumpectomy, Section, Vasectomy or Organ Transplant Social History SMOKING STATUS: Never smoker SECOND HAND EXPOSURE: No SUBSTANCE USE: does not use ED Exam General Limitations: Present no limitations General appearance: Present alert and in no apparent distress Head Head exam: Present atraumatic, normocephalic and normal inspection Eye Eye exam: Present normal appearance, PERRL and EOMI ENT ENT exam: Present normal exam, normal oropharynx and mucous membranes moist Neck Neck exam: Present normal inspection, full ROM and trachea midline Chest Chest inspection: Present normal inspection and symmetric chest wall rise Respiratory Respiratory exam: Present normal lung sounds bilaterally Cardiovascular Cardiovascular exam: Present regular rate, normal rhythm and normal heart sounds Abdominal Exam Abdominal exam: Present soft and normal bowel sounds Extremities Exam Extremities exam: Present normal inspection and full ROM Back Exam Back exam: Present normal inspection and full ROM Neurological Exam Neurological exam: Present alert, oriented X3, CN II-XII intact and reflexes normal Expanded Neurological Exam Patient oriented to: Present person, place and time Speech: Present fluid speech Cranial nerves: Normal: EOM function (II, III, IV, ), facial sensation (V) and facial palsy (VII) Motor strength - LUE: 5/5 Motor strength - RUE: 5/5 Motor strength - LLE: 5/5 Motor strength - RLE: 5/5 Coma scale eye opening: spontaneous Coma scale motor response: obeys commands Coma scale verbal response: oriented Coma scale total: 15 Psychiatric Psychiatric exam: Present normal affect and normal mood Skin Skin exam: Present warm, dry, intact and normal color Course Quality Measures none Vital Signs Vital signs: Vital Signs Temperature 97.9 F 10/12/24 03:32 Pulse Rate 71 10/12/24 03:32 Respiratory Rate 18 10/12/24 03:32 Blood Pressure 167/76 H 10/12/24 03:32 Pulse Oximetry (%) 97 10/12/24 03:32 Oxygen Delivery Method Room Air 10/12/24 03:32 O2 saturation 97% within normal limits Fall MDM Narrative MDM Narrative:: 64-year-old female with a history of hyperlipidemia, type 2 diabetes on dialysis Wednesday, hypothyroidism presents to the emergency room with a chief complaint of a fall. Patient states she rolled off of her bed and hit her face causing her to have a bloody nose. Patient states her bed is 1 foot off the ground. Clinically the patient appears hemodynamically stable and in no apparent distress. After speaking to the patient patient states her bed is a mattress on the floor and is approximately 1 foot off the ground. Patient states she rolled off of her bed and landed on her face causing her to have a nosebleed. The patient does not have any nosebleed at this time. The patient is currently not on blood thinners. Neurological examination shows the patient is a GCS of 15 AAOx4 pupils are PERRLA EOMs are intact cranial reflexes are all within normal limits the patient denies any confusion dizziness lightheadedness nausea vomiting. Patient states she has dialysis in an hour and would like to make it to her appointment Patient was educated to follow-up with primary care provider and return to the emergency room for any evidence of worsening signs or symptoms Patient data External records reviewed:: [facility] previous records Clinical information provided by:: patient Social determinants that could affect healthcare access:: none Patient has the following chronic illnesses:: Type 2 diabetes, hypothyroidism How is presenting disease/condition affected by chronic disease/condition?: uneffected by Evaluation data The following diagnostics were reviewed and interpreted by me:: lab results and radiology exam(s) Lab and/or radiology exams considered but not ordered:: Labs and radiology exams considered and ordered Interpretation Summary: N/A Medications / Prescriptions Medications or Prescriptions considered but not ordered:: N/A Medication administrations:: N/A Consultations Consultation(s) initiated? (list below): No Diagnosis Fall Differential Diagnosis: concussion with loss of consciousness, concussion without loss of consciousness and other (Closed head injury) Most likely diagnosis given after review of the tests above:: Closed head injury Admission Indicated Admission indicated?: not indicated Admission Request Was there a request for admission?: No Disposition Plan Disposition Plan: Discharge Discharge Attestation Discharge Attestation: The patient and all family members were given an opportunity to ask questions and understood the discharge instructions. Discharge instructions specifically effects, indications for sooner follow up or return to the emergency department, and the expected course of current diagnosis. Patient condition: Stable Discharge Plan Plan Patient Disposition: HOME (Self Care) Disposition Comment: Stable Prescriptions/Referrals Prescriptions/Med Rec: No Action furosemide 40 mg tablet 40 mg PO DAILY levothyroxine 75 mcg tablet 75 mcg PO DAILY ergocalciferol (vitamin D2) 1,250 mcg (50,000 unit) capsule 1,250 mcg PO DAILY fluoxetine 20 mg capsule 20 mg PO DAILY Veltassa 8.4 gram powder in packet 8.4 g PO DAILY Hold Instructions: Resume on 01/18/24. To be evaluated by PCP sevelamer carbonate 800 mg tablet 800 mg PO TID loratadine 10 mg tablet 10 mg PO DAILY Hold Instructions: Resume on 01/18/24. To be evaluated by PCP in outpatient setting permethrin 5 % cream 1 applic topical Q14D Qty: 60 0RF Rx Instructions: apply second treatment 14 days after first treatment if live lice remain hydrocodone-acetaminophen 5-325 mg tablet 1 tab PO BID MDD 10 PRN (Reason: pain) Qty: 10 0RF aspirin [Ecotrin Low Strength] 81 mg Tablet,Delayed Release (Dr/Ec) 81 mg PO QDAY 30 Days Qty: 30 0RF atorvastatin 40 mg tablet 40 mg PO QDAY Qty: 30 0RF azithromycin [Zithromax Z-Alverto] 250 mg tablet See Rx Instructions .ROUTE .COMPLEX Qty: 6 0RF Rx Instructions: For 250 mg dose pack: take 500 mg today (day 1), then 250 mg for 4 days (days 2-5) amoxicillin-pot clavulanate 875-125 mg tablet 1 tab PO BID Qty: 14 0RF Problem List Clinical Impression: Closed head injury Patient/Caregiver Discharge Instructions Education Materials: ED Head Injury (Adult) Additional Instructions: Please follow-up with your primary care provider in the next 24 to 48 hours. For any evidence of worsening signs or symptoms please return to the emergency room immediately Print Language: Nepali Stand Alone Forms: Devi Award Info., Patient Portal Info Letter PA/AUTOMOBILE BUMPER STRAIGHTENER Supervising Physician PA/AUTOMOBILE BUMPER STRAIGHTENER Supervising Physician: Dr. Garcia
[2024-10-12 03:57] VITALS: RESP 18
== END 2024-10-12 03:57 | disposition home or self-care (01) ==
LOC: SERX 03:54
PROVIDERS: Emergency Provider Emergency Medicine; PCP Physician Assistant
DX: S09.90XA Unspecified injury of head, initial encounter (principal); W06.XXXA Fall from bed, initial encounter
CPT/HCPCS: 99281

== ENCOUNTER 2024-12-05 05:33 | Observation (INO) | payer MEDICAID, SELFPAY ==
[2024-12-05] VITALS (33 sets, daily range): BP systolic 99–190; BP diastolic 51–97; PULSE 70–96; RESP 14–20; TEMP 36.1–36.7; O2SAT 96–100; BMI 32.5; BMI 32.4
--- NOTE | 2024-12-05 06:55 | PD.EDSOB ---
ED SOB =RME/HPI General Chief Complaint: Shortness of Breath/Dyspnea Stated Complaint: SHORTNESS OF BREATH Time Seen by Provider: 12/05/24 06:39 Arrival date/time: 12/05/24 05:33 RME / HPI RME / HPI Narrative: 64 year old female with history of HFpEF 55% 12/2023, ESRD on HD T//Wed, hypertension, hypothyroidism, hyperlipidemia presents to the ED for evaluation of shortness of breath today. Described feeling she is not getting enough air with no known modifying factors. Patient reports she always feels short of breath. However, noted feeling worse while getting ready to go to dialysis this morning, prompting ED visit. Denies any fevers, chills, sore throat, body aches, congestion, chest pain, abdominal pain, n/v. Related Data Home Medications ?Medication ?Instructions ?Recorded ?Confirmed ergocalciferol (vitamin D2) 1,250 1,250 mcg PO DAILY 01/09/24 01/09/24 mcg (50,000 unit) capsule fluoxetine 20 mg capsule 20 mg PO DAILY 01/09/24 01/09/24 furosemide 40 mg tablet 40 mg PO DAILY 01/09/24 01/09/24 levothyroxine 75 mcg tablet 75 mcg PO DAILY 01/09/24 01/09/24 loratadine 10 mg tablet 10 mg PO DAILY 01/09/24 01/09/24 patiromer calcium sorbitex 8.4 8.4 g PO DAILY 01/09/24 01/09/24 gram oral powder packet (Velt[place]) sevelamer carbonate 800 mg tablet 800 mg PO TID 01/09/24 01/09/24 Previous Rx's ?Medication ?Instructions ?Recorded permethrin 5 % topical cream 1 applic topical Q14D 2 doses #60 01/11/24 grams hydrocodone 5 mg-acetaminophen 325 1 tab PO BID PRN pain #10 tabs 05/09/24 mg tablet atorvastatin 40 mg tablet 40 mg PO QDAY #30 tabs 09/27/24 amoxicillin 875 mg-potassium 1 tab PO BID #14 tabs 09/30/24 clavulanate 125 mg tablet azithromycin 250 mg tablet See Rx Instructions PO .COMPLEX #6 09/30/24 (Zithromax Z-Alverto) tabs Allergies Allergy/AdvReac Type Severity Reaction Status Date / Time peach Allergy Severe SKIN RASH Verified 05/09/24 16:59 Review of Systems Review of Systems Narrative Review of Systems: Constitutional: DENIES; Fevers Eyes: DENIES; Loss of vision Head/Ear/Nose: DENIES; Loss of hearing Throat: DENIES; Dysphagia Cardiovascular: DENIES; Chest pain, dyspnea or syncope Respiratory: SEE HPI +Shortness of breath Gastrointestinal: DENIES; Rectal bleeding or melena. Genitourinary: DENIES; Dysuria (painful or difficult urination) Musculoskeletal: DENIES; Arthralgia (pain in a joint),; Skin: DENIES; Rash Neurological: DENIES; Loss of function or movement Psychiatric: DENIES; recent major life stressor, emotional problem, illicit drug use or abuse Endocrinology: DENIES; Weight change Hematologic/Lymphatic: DENIES; Abnormal bruising Allergic/Immunologic: DENIES; Urticaria (hives) Past Medical History Past Medical History CARDIAC: Positive Cardiac Disorders, Hypercholesterolemia, Edema and Hypertension GASTROINTESTINAL: Positive Gastrointestinal Disorders, Gall Bladder Disease and Obesity GENITOURINARY: Positive Renal Disease and Dialysis (Leonid, Ara, Gianni) REPRODUCTIVE: Positive Endometriosis and Previous Pregnancies ENDOCRINE: Positive Endocrine Disorders and Hypothyroidism PSYCHO/SOCIAL: Positive Depression and Anxiety OTHER HISTORY: Positive Hospitalization and Chicken Pox Family History FAMILY HISTORY: Positive Family Cardiac Disorders, Family Gastrointestinal Problems and Family Surgery Surgical History SURGICAL: Positive Abdominal Surgery, Hysterectomy and Tubal Ligation Social History SMOKING STATUS: Never smoker SECOND HAND EXPOSURE: No SUBSTANCE USE: does not use ED Exam Narrative Physical exam: Physical Exam: General: The vital signs were reviewed. Blood pressure was quite high and at 1 8190 range O2 sats are mid 90s. The patient is non-toxic, in no apparent distress and appears healthy with a patent airway, no respiratory distress and has no apparent circulatory problems. Head & Scalp: Normocephalic, atraumatic. Face: Appears normal and is without lesions, deformity. Ears: Left external pinna appears normal. Right external pinna appears normal. Eyes: The sclera is anicteric. No obvious photophobia. The Left and Right Orbit/Lid/Conjunctiva appears normal without swelling, discoloration or injection. Nose: The nose is without deformity, discharge or tenderness; Throat: Appears normal. The mucous membranes are pink and moist without exudates, redness or mass seen. The tongue appears normal. Neck: The neck is supple and no apparent mass or adenopathy. Chest: The chest wall is normal in size and symmetry and has no chest wall tenderness or crepitus. The patient displays normal ventilator effort without retractions, accessory muscle use and has adequate air movement bilaterally with no wheezes and no rales. Cardiovascular: Regular rate and rhythm; No murmurs, rubs, or gallops; Gastrointestinal: The abdomen appears normal. No obvious hernias or mass. The abdomen is soft and benign, non-distended, with no pain, no guarding and no rebound tenderness. Bowel sounds are present and normal sounding. No CVA tenderness. Genitourinary: Back/Spine: Normal inspection Extremities/Musculoskeletal/lymphatic: The bilateral upper and lower extremities are warm. There is no evidence of arterial insufficiency. There is no evidence of venous insufficiency/edema. The patient spontaneously moves bilateral upper and lower extremities with no pain and no limitation of movement. There is no apparent, injury or trauma. Skin: The skin is warm, dry and intact. No rashes. No petechia. No purpura. No abnormal bruising. The color is appropriate with no cyanosis. Mental status/Psychiatric: Mental status is appropriate for age. The patient has no apparent delusions, visual hallucinations, no apparent audible hallucinations. The patient has no apparent suicidal thoughts/ideation and no apparent homicidal thoughts/ideation. Neurological: The patient is awake, alert, interactive, cordial, cooperative and is oriented to name and situation. The patient follows commands and answers historical question with no impairment. There is no visual disturbance apparent. The pupils are equal and reactive bilaterally with normal eye movements and no diplopia The bilateral upper and lower extremities have normal strength, normal range of motion and normal functioning. The gait, station and balance were not tested due to acuity Course Course Course Narrative: chest xray ordered to help determine etiology of shortness of breath. Quality Measures none Orders Category Date Time Status EKG (ED ONLY) *Do not use* NOW Care 12/05/24 06:57 Completed EKG (ED Only) Stat Exams 12/05/24 06:57 Ordered XR chest 1V portable Stat Exams 12/05/24 06:57 Completed B-Type Natriuretic Peptide Stat Lab 12/05/24 07:51 Completed Blood Culture (Lab) Stat Lab 12/05/24 07:51 Received CBC Stat Lab 12/05/24 07:51 Completed Comprehensive Metabolic Panel Stat Lab 12/05/24 07:51 Completed Drug Screen,Urine Stat Lab 12/05/24 08:30 Completed Lactate (Lactic Acid) Stat Lab 12/05/24 07:51 Completed Lipase Stat Lab 12/05/24 07:51 Completed Magnesium Stat Lab 12/05/24 07:51 Completed Troponin I Stat Lab 12/05/24 07:51 Completed Urinalysis Stat Lab 12/05/24 08:30 Completed Urinalysis, C/S if Indicated Stat Lab 12/05/24 08:30 Completed Urine Culture Stat Lab 12/05/24 08:30 Received Venous Blood Gas Stat Lab 12/05/24 07:51 Completed Nitroglycerin Oint 2% [Nitro-paste Oint 2%] Med 12/05/24 12:07 Discontinued 1 inch TOP X1 ONE hydrALAZINE INJ [Apresoline Inj] Med 12/05/24 12:07 Discontinued 20 mg IV X1 ONE Vital Signs Vital signs: Vital Signs Temperature 98.1 F 12/05/24 05:38 Pulse Rate 79 12/05/24 05:38 Respiratory Rate 20 12/05/24 05:38 Blood Pressure 162/82 H 12/05/24 05:38 Pulse Oximetry (%) 99 12/05/24 05:38 Oxygen Delivery Method Nasal Cannula 12/05/24 05:38 Oxygen Flow Rate 4 12/05/24 05:38 Shortness of Breath / Dyspnea MDM Narrative MDM Narrative:: IVarsha, zeferino scribing for and in the presence of Dr. Molina. Patient is a diabetic with end-stage renal failure who was scheduled for dialysis this morning but was short of breath called EMS and brought in for evaluation. She is found to be fluid overloaded her potassium was 6.1 chest x-ray had no other findings other than just increased vascular fluid overload. Blood pressure initially in the 180 range white count 5.0 hemoglobin is 10.7 pH 7.23 and pCO2 of 67 consistent with a respiratory acidosis on venous blood gas sodium 136 potassium 6.1 which is elevated chloride 99 CO2 28 anion gap is 8 BUN is 84 creatinine 7.9 consistent with chronic renal failure magnesium little elevated 2.8. Troponin slightly bumped at 0.121 BNP is elevated 632 consistent with fluid overload/congestive heart failure urinalysis came back with 378 red blood cells and 13 white cells of uncertain significance. Urine drug screen came back negative Because of the fluid overload status hypertensin and hyperkalemia 6.1 Dr Morales the patient's refractory tile helper was called and she will provide emergent dialysis services. Hospitalist was then called and they will be admitting. Because of fluid overload status and hypertensive urgency this will be a critical care patient. Patient data External records reviewed:: [facility] previous records (I reviewed ED visit on 10/12/2024) and EMS form Clinical information provided by:: patient Social determinants that could affect healthcare access:: none Patient has the following chronic illnesses:: HFpEF 55% 12/2023, ESRD on HD T//Wed, hypertension, hypothyroidism, hyperlipidemia How is presenting disease/condition affected by chronic disease/condition?: exacerbated by Evaluation data The following diagnostics were reviewed and interpreted by me:: lab results, radiology exam(s) and EKG tracing(s) Lab and/or radiology exams considered but not ordered:: None Interpretation Summary: Ordering Physician: Arik Molina MD Date of Service: 12/05/24 Procedure(s): XR chest 1V portable Accession Number(s): [id number] cc: Arik Molina MD; Carl Gomes MD; Viky Wick PA-C~ Examination: AP chest single view Technique one AP portable upright chest single view Exam date and time: December 05, 2024 0610 hrs. Indications: Shortness breath chest pain beginning today. Findings: Mild to moderate CHF Mild enlargement cardiac contour Prominent vascular congestion including central vascular engorgement with perihilar edema Impression: Mild to moderate CHF Dictated By: Carl Gomes MD Signed By: <Electronically signed by Carl Gomes MD in OV> 12/05/24 0806 Medications / Prescriptions Medications or Prescriptions considered but not ordered:: None Medication administrations:: Medication Administration History Acetaminophen (Acetaminophen 325 Mg Tablet) 650 mg PO Q6H PRN PRN Reason: Pain 1-3 and/or Fever >100.1 Stop: 01/04/25 13:38 Levothyroxine Sodium (Levothyroxine Sodium 25 Mcg Tablet) 75 mcg PO ACBR [facility] Stop: 01/05/25 05:59 Ondansetron HCl (Ondansetron Inj 2 Mg/Ml Inj 2 Ml) 4 mg IV Q6H PRN; Protocol PRN Reason: NAUSEA OR VOMITING Stop: 01/04/25 13:38 Sennosides (Senna Tablet) 1 tab PO QDAY LISY; Protocol Stop: 01/05/25 08:59 Discontinued Medications Albuterol/Ipratropium (Albuterol/Ipratropium (Duoneb) Rt Ivonne 3 Ml Nebu) 3 ml INH X1 ONE Stop: 12/05/24 13:40 Dextrose (Dextrose 50%-Water Inj 50 Ml Syringe) 50 ml IV X1 ONE Stop: 12/05/24 13:40 Hydralazine HCl (Hydralazine Inj 20 Mg/Ml Vial) 20 mg IV X1 ONE Stop: 12/05/24 12:08 Last Admin: 12/05/24 12:26 Dose: 20 mg Documented By: JUAN FRANCISCO Insulin Human Regular (Insulin Hum Regular 1 Unit/0.01 Ml (Per Unit)) 5 unit IV X1 ONE Stop: 12/05/24 13:40 Nitroglycerin (Nitroglycerin Oint 2% 1 Inch Packet) 1 inch TOP X1 ONE Stop: 12/05/24 12:08 Last Admin: 12/05/24 12:27 Dose: 1 inch Documented By: JUAN FRANCISCO Sodium Polystyrene Sulfonate (Sod Polystyrene Sulfon Susp 15 Gm/60 Ml Btl) 15 gm PO X1 ONE Stop: 12/05/24 13:40 See above Consultations Consultation(s) initiated? (list below): Yes Consultation #1 (Physician, Specialty, Details): I spoke with patients refractory tile helper Dr. Morales as noted above. She agrees to consult. Time: 12:08 Consultation #2 (Physician, Specialty, Details): I spoke with hospitalist Dr. Orozco. Discussed patients PMHx, HPI, ED course, exam findings, labs, and radiology results. The hospitalist agree to accept the patient for admission. Time: 12:10 Diagnosis Shortness of Breath Differential Diagnosis: acute exacerbation of chronic obstructive airways disease, congestive heart failure, community acquired pneumonia, asthma with exacerbation and other (Fluid overload ) Most likely diagnosis given after review of the tests above:: End-stage renal failure fluid overload hyperkalemia hypertensive urgency Admission Indicated Admission indicated?: indicated Admission Request Was there a request for admission?: Yes Admission Attestation Admission request attestation: Discussed case with [] from Hospitalist service regarding admission. Discussed patients ED course, exam findings, labs, and radiology results. The Hospitalist [agrees,declines] to accept the patient for admission. Disposition Plan Disposition Plan: Admit Critical Care Time Critical Care Time Critical Care Time: Yes Total Critical Care Time (min.): 45 Attestation: The high probability of sudden, clinically significant deterioration in the patient's condition required the highest level of my preparedness to intervene urgently. The services I provided to this patient were to treat and/or prevent clinically significant deterioration. Services included the following: chart data review, reviewing nursing notes and/or old charts, documentation time, student union consultant collaboration regarding findings and treatment options, medication orders and management, direct patient care, vital sign assessments and ordering, interpreting and reviewing diagnostic studies and lab tests. Aggregate critical care time includes only time during which I was engaged in work directly related to the patient's care, as described above, whether at bedside or elsewhere in the Emergency Department. It did not include time spent performing other reported procedures or the services of residents, students, nurses or physician assistants. Discharge Plan Plan Patient Disposition: Admit Acute Care w/in Hospital Disposition Comment: Hospitalist to admit Dr Morales to consult for dialysis Problem List Clinical Impression: Fluid overload, End stage renal failure on dialysis, Acute respiratory acidosis, Acute hyperkalemia, Acute dyspnea, Elevated troponin
[2024-12-05 08:14] LABS: Base Excess, Venous -1 (-3-3); Lactate (Lactic Acid) 0.6 mMol/L (0.4-2.0); O2 Saturation, Venous 64 % (96-97); PCO2, Venous 67 mmHg (36-56); PO2, Venous 38 mmHg (15-58); pH, Venous 7.23 (7.33-7.66)
[2024-12-05 08:18] LABS: Basophils % (Auto) 0 % (0-2.5); Eosinophils # (Auto) 0.1 Thou/mm3 (0.0-0.5); Eosinophils % (Auto) 2 % (0-10); Hematocrit 33.7 % (36.0-46.0); Hemoglobin 10.7 g/dL (12.0-16.0); Immature Granulocytes % (Auto) 0 % (0-0); Immature Granulocytes Auto 0.01 Thou/mm3 (0.00-0.00); Lymphocytes # (Auto) 0.8 Thou/mm3 (1.0-4.8); Lymphocytes % (Auto) 16 % (10-50); Mean Corpuscular HGB Conc 31.8 g/dl (31.0-37.0); Mean Corpuscular Hemoglobin 27.8 pg (25.0-35.0); Mean Corpuscular Volume 88 fL (80-100); Monocytes # (Auto) 0.3 Thou/mm3 (0.0-0.8); Monocytes % (Auto) 6 % (0-12); Neutrophils # (Auto) 3.8 Thou/mm3 (1.8-7.7); Neutrophils % (Auto) 75 % (37-80); Nucleated Red Blood Cell % 0 /100 WBC (0); Platelet Count 100 Thou/mm3 (140-440); RDW Standard Deviation 47.6 fL (36.4-46.3); Red Blood Count 3.85 Miln/mm3 (4.00-5.20)
--- NOTE | 2024-12-05 08:33 | PC.NURSE ---
0812: 18g IV placed to the left wrist by CIRO
[2024-12-05 08:35] LABS: B-Type Natriuretic Peptide 632 pg/mL (0-100)
[2024-12-05 08:52] LABS: Alanine Aminotransferase 7 U/L (10-49); Albumin, Serum 4.2 gm/dL (3.4-4.8); Albumin/Globulin Ratio 1.6 (1.2-2.2); Alkaline Phosphatase 116 U/L (46-116); Anion Gap 8 (7-16); Aspartate Amino Transferase 14 U/L (0-34); BUN/Creatinine Ratio 11 Ratio (12-20); Bilirubin,Total 0.3 mg/dL (0.3-1.2); Blood Urea Nitrogen 84 mg/dL (9-23); Calcium 9.8 mg/dL (8.3-10.6); Calcium (Corrected) 9.8 mg/dL (8.5-10.1); Carbon Dioxide 28.7 mMol/L (20.0-31.0); Chloride 99 mMol/L (98-107); Creatinine (Component) 7.9 mg/dL (0.6-1.3); Estimated Creatinine Clearance 7.6 mL/min (>60); Globulin 2.7 gm/dL (2.3-3.5); Glucose 98 mg/dL (74-106); Lipase 117 U/L (12-53); Magnesium 2.8 mg/dL (1.6-2.6); Osmolality,Calculated 297 (275-295); Sodium 136 mMol/L (136-145); Total Protein 6.9 gm/dL (5.7-8.2); eGFR 5 See Note
[2024-12-05 08:57] LABS: Collection Type, Urine Clean Catch
[2024-12-05 08:57] LABS: Potassium 6.1 mMol/L (3.4-5.1)
[2024-12-05 08:58] LABS: Troponin I 0.121 ng/mL (0.0-0.045)
--- NOTE | 2024-12-05 08:59 | PC.NURSE ---
[facility]00 [facility] LAB FOR HIGH POTASSIUM AND HIGH TROPONIN LEVELS NOTIFIED PRIMARY PRODUCTION ANALYST ISMAEL HAGER
[2024-12-05 09:04] LABS: Bilirubin,Urine Negative (Negative); Blood,Urine 2+ (Negative); Clarity,Urine Clear (Clear/Hazy); Color,Urine Lt-Yellow (Lt Yel-Yel); Glucose, Urine 2+ (Negative); Ketones,Urine Negative (Negative); Leukocyte Esterase,Urine Negative (Negative); Nitrite,Urine Negative (Negative); Protein,Urine 3+ (Neg - Trace); RBC,Urine 378 /hpf (0-3); Specific Gravity,Urine 1.011 (1.001-1.035); Squamous Epithelial Cell,Urine 1 /hpf (0-5); Urobilinogen,Urine Negative mg/dL (0.0-1.0); WBC,Urine 13 /hpf (0-5)
[2024-12-05 09:08] LABS: Culture Indicated,Urine Yes
[2024-12-05 09:11] LABS: Amphetamine/Methamp Scrn,U Negative (Negative); Barbiturate Screen,Urine Negative (Negative); Benzodiazepines Screen,Urine Negative (Negative); Benzoylecgonine Screen, Ur Negative (Negative); Fentanyl Screen,Urine Negative (Negative); Opiate Screen,Urine Negative (Negative); THC Screen,Urine Negative (Negative)
[2024-12-05] MEDS: hydrALAZINE INJ 20 MG/ML VIAL IV (12:26)
[2024-12-05] MEDS: NITROGLYCERIN OINT 2% 1 INCH PACKET TOP (12:27)
--- NOTE | 2024-12-05 13:07 | ESCONSULT_ITS ---
HPI Data of Consult Consult date: 12/05/24 Requesting Physician: Jase Orozco MD Admitting Provider: Jase Orozco MD Attending Provider: Jase Orozco MD Primary Care Provider: Viky Wick PA-C Consult Narrative Reason for consult: ESRD and on HD History of present illness: Mr. Tony is a 64-year-old female with past medical history of hypotension, hypothyroidism, CHF, homeless, living in a custodial, ESRD on HD [//] since 5 years presented to the hospital with chief complaints of shortness of breath since 1 day. Patient is apparently normal 1 day ago, living in the custodial home since 5 months and reported that she is compliant with her regular dialysis sessions. Reported that since last night patient had shortness of breath, not associated with fever, lower extremity swelling, cough, burning micturition, orthopnea, PND, palpitations. Patient was supposed to get dialysis this morning but as she is having worsening shortness of breath, she was brought to the hospital for further management. Stated that she is able to urinate 3-5 times in a day ED Course: -Initial vitals were blood pressure 162/82 mmHg, pulse rate 79 bpm, respiratory rate 20/min, temperature 98.1 ?F, SpO2 99% with 4 L oxygen -Labs significant for WBC 5, hemoglobin 10.7, platelets 100, sodium 136, potassium 6.1, bicarb 28.7, BUN 84, creatinine 7.9, troponin 0.121, BNP 632. -Urine analysis showed 3+ proteinuria, 2+ glucosuria, 2+ blood, 378 RBC, 13 WBC. Tested negative for urine toxicology -Chest x-ray showed mild to moderate bilateral vascular congestion. -In the ED, patient was given hydralazine Nephrology was consulted as patient is having ESRD on HD, her dialysis session is pending today cc:: cc: Jase Orozco MD Review of Systems Review of Systems Narrative Review of Systems: Constitutional: No Weight Change, No Fever, No Chills, No Night Sweats, Fatigue, Malaise ENT/Mouth: No Hearing Changes, No Ear Pain, No Nasal Congestion, No Sinus Pain, No Hoarseness, No sore throat, No Rhinorrhea, No Swallowing Difficulty Eyes: No Eye Pain, No Swelling, No Redness, No Foreign Body, No Discharge, No Vision Changes Cardiovascular: No Chest Pain, SOB, No PND, No Dyspnea on Exertion, No Orthopnea, No Edema, No Palpitations Respiratory: No Cough, No Sputum, No Wheezing, No Dyspnea Gastrointestinal: No Nausea, No Vomiting, No Diarrhea, No Constipation, No Pain, No Heartburn, No Anorexia, No Dysphagia, No Hematochezia, No Melena, No Flatulence, No Jaundice Genitourinary: No Dysuria, No Urinary Frequency, No Hematuria, No Urinary Incontinence, No Urgency, No Flank Pain, No Urinary Flow Changes, No Hesitancy Musculoskeletal: No Arthralgias, No Myalgias, No Joint Swelling, No Joint Stiffness, No Back Pain, No Neck Pain, No Injury History Skin: No Skin Lesions, No Pruritis Neuro: No Weakness, No Numbness, No Paresthesias, No Loss of Consciousness, No Syncope, No Dizziness, No Headache, No Coordination Changes, No Recent Falls Past Medical History Past Medical History CARDIAC: Positive Congestive Heart Failure GASTROINTESTINAL: Positive Gastrointestinal Disorders, Gall Bladder Disease and Obesity GENITOURINARY: Positive Renal Disease and Dialysis (Tues, Thbelle, Sat) REPRODUCTIVE: Positive Endometriosis and Previous Pregnancies ENDOCRINE: Positive Endocrine Disorders and Hypothyroidism PSYCHO/SOCIAL: Positive Depression and Anxiety OTHER HISTORY: Positive Hospitalization and Chicken Pox Family History FAMILY HISTORY: Positive Family Cardiac Disorders, Family Gastrointestinal Problems and Family Surgery Surgical History SURGICAL: Positive Abdominal Surgery, Hysterectomy and Tubal Ligation Social History SMOKING STATUS: Never smoker SECOND HAND EXPOSURE: No SUBSTANCE USE: does not use Exam Vital Signs Temp Pulse Resp BP Pulse Ox O2 Del Method O2 Flow Rate 97.9 F 80 16 132/68 H 98 Nasal Cannula 2 12/05/24 12:18 12/05/24 13:05 12/05/24 12:18 12/05/24 13:05 12/05/24 12:18 12/05/24 12:18 12/05/24 12:18 Narrative Exam GENERAL APPEARANCE: Patient currently seen on dialysis NECK: Neck supple, no JVD or bruit CARDIOVASCULAR: Heart regular, no murmurs LUNGS/CHEST: Fine crackles bilaterally ABDOMEN: Soft, nontender, nondistended. No masses. Normal bowel sounds. EXTREMITIES: 1+ edema noted in the lower extremities SKIN: Skin exam normal without any rashes MUSCULOSKELETAL: In bed NEUROLOGICAL : No neurological deficits Results Labs 12/06/24 04:59 12/06/24 04:59 Labs: Short CBC 12/05/24 Range/Units 07:51 WBC 5.0 (3.6-11.0) Thou/mm3 Hgb 10.7 L (12.0-16.0) g/dL Hct 33.7 L (36.0-46.0) % Plt Count 100 L (140-440) Thou/mm3 BMP 12/05/24 07:51 Sodium 136 Potassium 6.1 H* Chloride 99 Carbon Dioxide 28.7 BUN 84 H Creatinine 7.9 H* Glucose 98 Calcium 9.8 Cardiac Enzymes 12/05/24 Range/Units 07:51 Troponin I 0.121 H* (0.0-0.045) ng/mL Liver Function 12/05/24 Range/Units 07:51 Total Bilirubin 0.3 (0.3-1.2) mg/dL AST 14 (0-34) U/L ALT 7 L (10-49) U/L Alkaline Phosphatase 116 (46-116) U/L Albumin 4.2 (3.4-4.8) gm/dL Urine 12/05/24 Range/Units 08:30 Urine Color Lt-Yellow (Lt Yel-Yel) Urine Clarity Clear (Clear/Hazy) Urine pH 8.0 H (5.0-7.0) Ur Specific Dalton 1.011 (1.001-1.035) Urine Protein 3+ A (Neg - Trace) Urine Glucose (UA) 2+ A (Negative) ABG Interpretation ABG results: 12/05/24 07:51 VBG pH 7.23 L VBG pCO2 67 H VBG pO2 38 VBG Base Excess -1 Quality Measures Quality Measures none Medications Home Medications and Allergies Home Medications ?Medication ?Instructions ?Recorded ?Confirmed ?Type levothyroxine 75 mcg tablet 75 mcg PO DAILY 01/09/24 0 12/06/24 History sevelamer carbonate 800 mg tablet 1,600 mg PO TID 12/2012/06/24 History acetaminophen 650 mg 650 mg PO Q8H PRN pain 12/0612/06/24 History tablet,extended release aspirin 81 mg chewable tablet 1 tab PO DAILY 12/06/24 12/06/24 History cinacalcet 30 mg tablet 30 mg PO .COMPLEX 12/06/24 0 12/06/24 History midodrine 5 mg tablet 5 mg PO DAILY 12/06/2412/06 History Allergies Allergy/AdvReac Type Severity Reaction Status Date / Time peach Allergy Severe SKIN RASH Verified 05/09/24 16:59 Visit Medications Discontinued Medications Hydralazine HCl (Hydralazine Inj 20 Mg/Ml Vial) 20 mg IV X1 ONE Stop: 12/05/24 12:08 Last Admin: 12/05/24 12:26 Dose: 20 mg Nitroglycerin (Nitroglycerin Oint 2% 1 Inch Packet) 1 inch TOP X1 ONE Stop: 12/05/24 12:08 Last Admin: 12/05/24 12:27 Dose: 1 inch Assessment & Plan Plan A 64-year-old female with past medical history of hypotension, hypothyroidism, CHF, homeless, living in a custodial, ESRD on HD [//] since 5 years presented to the hospital with chief complaints of shortness of breath since 1 day and consulted for hemodialysis as patient is pending history for today # ESRD on HD [] # Hyperkalemia -Patient is on dialysis since 5 years, currently getting dialysis through AV fistula -Per patient, did not miss any dialysis sessions -Patient is admitted to the hospital with shortness of breath since 1 day -Patient is still able to produce urine, 3-5 times in a day -Found to have elevated blood pressures in the ED, but patient stated that she is normally hypotensive and is using midodrine -Labs showed sodium 136, potassium 6.1, BUN 84, creatinine 7.9 -Urine analysis showed clear urine with urine pH 8, 3+ proteinuria, 2+ glucosuria, 2+ blood, 378 RBC, 13 WBC Plan -Received hyperkalemic treatment -Patient will get HD today as per her routine schedule -Avoid nephrotoxic medications and renally dose medications # Chronic anemia, normocytic normochromic Likely due to anemia due to kidney disease -Patient was found to have hemoglobin of 10-11 since 2020 -Will give erythropoietin injections during dialysis I really hate #Acute hypoxic respiratory failure #Volume overloaded status #Underlying CHF #Elevated troponin, likely NSTEMI type II Rest of the medical conditions to be treated as per primary team Thank you for allowing us to involve in the care of the patient Patient plan of care was discussed with the attending physician, Dr. Carmen Quintero, PGY1 Attending Provider Attestation/Addendum Patient seen and examined with resident physician Dr. Mei. Note reviewed, agree with findings and recommendations. Patient currently seen on dialysis. Tolerating dialysis without any problems. Hemodialysis for 3 hours, 2K, ultrafiltration 2-3 L, Epogen 6000, no heparin ordered. Plan of care discussed with the dialysis nurse. Please see dialysis flowsheet for further details. Patient admitted with fluid overload. Thank you César for allowing me to participate in the care of Ms. Desouza
--- NOTE | 2024-12-05 13:39 | ESHP_ITS ---
<Statement entered by Patricia Chang MD - 12/06/24 00:22> Patient was seen and examined by me personally. I have directly supervised and reviewed documentation by the team resident and agree with its findings with any exceptions or additional findings as below. Plan of care was discussed with the attending, Dr. Orozco. New admission today. Patient is a 64-year-old female with past medical history of ESRD on HD () followed by Dr. Morales, hypertension, hypothyroidism, and CHF who presented to the ED on 12/05/2024 with shortness of breath after missing dialysis session on Saturday 12/02 and today Tuesday 12/05. Patient was subsequently admitted for fluid overload secondary to missed dialysis. Patient states she missed because she was not breathing well and came to the hospital instead today. CXR showed vascular congestion, BNP 632, patient was saturating on 4L O2. Potassium was found to be 6.1. Dr. Morales was consulted and patient received dialysis. Repeat renal panel at 6 pm showed normalized potassium at 4.4. Will plan for discharge in the next 24-48 hours following improvement in fluid overload status. Patient is apparently homeless, will consult with home health care social worker for discharge planning. Patricia Chang, PGY-2 Documentation for date of: 12/05/24 HPI History of Present Illness Chief complaint: Shortness of breath History of present illness: 64-year-old female with past medical history of ESRD on HD () followed by Dr. Morales, hypertension, hypothyroidism, CHF presented to the ED with shortness of breath after missing dialysis session on Saturday 12/02. Patient states that she has been feeling increasingly short of breath for the past several days along with increased phlegm production but denies any fever chills, chest pain and/or nausea/vomiting. Patient also denies having any sick contacts but is currently staying at [facility]. Of note, patient was started on Augmentin about a month ago for upper respiratory tract infection that she still has the pill bottle for. Patient states that she is in the process of acquiring a home thanks to home health care social worker but this process is pending paperwork that is apparently eminent. Patient still makes urine and was diagnosed with end-stage renal disease years ago; moreover, she has a right-sided brachiocephalic AV fistula which is patent. Patient also follows Dr. Bailey cardiology for apparent congestive heart failure, last appointment was 6 months ago and she has not repeat appointment on December 18, 2024. Patient denies any other concerning symptoms at this time and she states she does use oxygen outside the hospital secondary to congestive heart failure. Medical history: As stated above Surgical history: 3 hernia repairs, complete hysterectomy, tubal ligation in her 20s Allergies: Peaches cause skin rash medications: Medications: Aspirin 81, atorvastatin 40, Cinacalcet, sevelamer, midodrine 5 mg, pending official med rec Family history: Noncontributory Social history: Patient denies any alcohol, tobacco or illicit drug use. Patient is from [place], currently staying at [facility] pending housing, patient has 3 sons that she keeps in contact with ROS: All 12 systems assessed and the patient denies unless otherwise stated in HPI In the ED, patient presented hypertensive 162/82, regular heart rate, respiratory rate of 20 but afebrile and satting 99 on 4 L of nasal cannula. Pertinent lab findings included WBC of 5, hemoglobin 10.7 with MCV of 88, platelet of 100, sodium 136, potassium 6.1, BUN 84, creatinine 7.9, lactic acid 0.6, magnesium 2.8, troponin 0.121, BNP 632, lipase 117. Urinalysis show hematuria, pyuria but no bacteriuria. U tox is negative. Chest x-ray does show mild to moderate CHF Patient will be admitted for acute hypoxic respiratory failure secondary to volume overload status secondary to need of emergent dialysis; nephrology is consulted appreciate recommendations. Exam Vital Signs Temp Pulse Resp BP Pulse Ox O2 Del Method O2 Flow Rate 97.9 F 80 16 132/68 H 98 Nasal Cannula 2 12/05/24 12:18 12/05/24 13:05 12/05/24 12:18 12/05/24 13:05 12/05/24 12:18 12/05/24 12:18 12/05/24 12:18 Narrative Exam Physical Exam: GENERAL: Awake, answering questions appropriately, appears stated age, obese HEENT: NC/AT. Moist mucosa. PERRLA/EOMI. CARDIO: Heart RRR, IV/ systolic ejection murmur and holosytolic murmur on L sternal border and 4/5th intercostal space, no JVD. PULM: No coughing or visible SOB but is currently on 3 to 4 L oxygen. Wheezing noted bilaterally but otherwise lungs are clear to auscultation bilaterally GI: Abdomen soft, NT/ND, +BS. SKIN/MSK/EXT: Right brachiocephalic AV fistula. No wounds/discoloration/rashes/edema/amputations. +Pedal pulses present B/L. NEURO: Oriented x3, no focal neurologic deficits, Moves extremities x4. Results: Labs 12/05/24 07:51 12/05/24 07:51 Labs: Short CBC 12/05/24 Range/Units 07:51 WBC 5.0 (3.6-11.0) Thou/mm3 Hgb 10.7 L (12.0-16.0) g/dL Hct 33.7 L (36.0-46.0) % Plt Count 100 L (140-440) Thou/mm3 BMP 12/05/24 07:51 Sodium 136 Potassium 6.1 H* Chloride 99 Carbon Dioxide 28.7 BUN 84 H Creatinine 7.9 H* Glucose 98 Calcium 9.8 Cardiac Enzymes 12/05/24 Range/Units 07:51 Troponin I 0.121 H* (0.0-0.045) ng/mL Liver Function 12/05/24 Range/Units 07:51 Total Bilirubin 0.3 (0.3-1.2) mg/dL AST 14 (0-34) U/L ALT 7 L (10-49) U/L Alkaline Phosphatase 116 (46-116) U/L Albumin 4.2 (3.4-4.8) gm/dL Urine 12/05/24 Range/Units 08:30 Urine Color Lt-Yellow (Lt Yel-Yel) Urine Clarity Clear (Clear/Hazy) Urine pH 8.0 H (5.0-7.0) Ur Specific [place] 1.011 (1.001-1.035) Urine Protein 3+ A (Neg - Trace) Urine Glucose (UA) 2+ A (Negative) ABG Interpretation ABG results: 12/05/24 07:51 VBG pH 7.23 L VBG pCO2 67 H VBG pO2 38 VBG Base Excess -1 Quality Measures Quality Measures none Medications Home Medications and Allergies Home Medications ?Medication ?Instructions ?Recorded ?Confirmed ?Type ergocalciferol (vitamin D2) 1,250 1,250 mcg PO DAILY 0 01/09/24 01/09/24 History mcg (50,000 unit) capsule fluoxetine 20 mg capsule 20 mg PO DAILY 01/09/2412/20 History furosemide 40 mg tablet 40 mg PO DAILY 01/09/2412/20 History levothyroxine 75 mcg tablet 75 mcg PO DAILY 01/09/24 0 01/09/24 History loratadine 10 mg tablet 10 mg PO DAILY 01/09/2412/20 History patiromer calcium sorbitex 8.4 8.4 g PO DAILY 01/09/24 01/09/24 History gram oral powder packet (Velt[place]) sevelamer carbonate 800 mg tablet 800 mg PO TID 01/09/24 History Allergies Allergy/AdvReac Type Severity Reaction Status Date / Time peach Allergy Severe SKIN RASH Verified 05/09/24 16:59 Visit Medications Discontinued Medications Hydralazine HCl (Hydralazine Inj 20 Mg/Ml Vial) 20 mg IV X1 ONE Stop: 12/05/24 12:08 Last Admin: 12/05/24 12:26 Dose: 20 mg Nitroglycerin (Nitroglycerin Oint 2% 1 Inch Packet) 1 inch TOP X1 ONE Stop: 12/05/24 12:08 Last Admin: 12/05/24 12:27 Dose: 1 inch Assessment & Plan Plan 64-year-old female with past medical history of ESRD on HD (//) followed by Dr. Morales, hypertension, hypothyroidism, CHF presented to the ED with shortness of breath after missing dialysis session on Saturday 12/02 will be admitted for acute hypoxic respiratory failure secondary to volume overload status secondary to need of emergent dialysis; nephrology is consulted appreciate recommendations. #Acute hypoxic respiratory failure #Volume overloaded status #Underlying CHF #Elevated troponin, likely NSTEMI type II Likely secondary to volume overloaded status from missing ESRD dialysis session versus CHF exacerbation Of note, patient has also been having upper respiratory symptoms and was treated with Augmentin about a month ago In the ED, patient required initially 4 L of nasal cannula but has since been weaning down to around 2 to 3 L saturating mid 90 Chest x-ray does show mild to moderate CHF pattern with vascular congestion noted Patient's troponin elevated to 0.1-1 and BNP of 632 but EKG does not show any acute or concerning ST changes Patient apparently follows with Dr. Bailey outpatient cardiology and 6 months ago stress test was normal but she has a repeat appointment on December 18, 2024 On examination, patient does have some wheezing but no crackles, JVD is not appreciated patient does have IV/ holosytolic murmur on L sternal border and 4/5th intercostal space Plan: Emergent dialysis as stated below Daily weight Strict I's and O's Will consider fluid restriction Will consider restarting aspirin and atorvastatin when appropriate Follow-up with Dr. Bailey cardiology appointment on December 18, 2024 #ESRD on dialysis (/) #Hyperkalemia Patient presenting after she missed Saturday 12/02 dialysis session with shortness of breath Patient follows with Dr. Morales outpatient Presenting with potassium of 6.1 Plan: Temporizing measures initiated, insulin regular 5 units along with D50, DuoNeb x 1, Kayexalate 15 g x 1 Emergent dialysis Nephrology, Dr. Morales consulted, appreciate recommendations Renal diet Will restart renal vitamins (Cinacalcet) and phosphate binders (sevelamer) when appropriate #Anemia of chronic disease #Thrombocytopenia Patient likely has anemia and thrombocytopenia secondary to ESRD Patient denies having any concerning blood loss, no hematuria, status post total abdominal hysterectomy, no melena/hematochezia or hematemesis Plan: Monitor for any acute changes in hemoglobin level Consider EPO with nephrology #Hypertension Patient is not on any blood pressure medications as noted from medications brought in the ED Presented hypertensive with systolic blood pressure in the 160s likely secondary to volume overload status Plan: Will monitor blood pressure after dialysis Will consider starting antihypertensive agents if blood pressure remains elevated #Hypothyroidism Patient on home levothyroxine 75 mcg Plan: Will restart home medication Hospital Management: Lines: PIV Diet: Renal Bowel: Senna GI prophylaxis: Not needed DVT prophylaxis: SCD Dispo: Emergent dialysis with Dr. Morales Code: Full Patient seen and assessed with attending Dr. Orozco and senior resident Dr. Bernardo Estrella, PGY-1 Attending Provider Attestation/Addendum I reviewed labs, imaging, EKG, home medications and prior available records. Face to face evaluation was performed by me. I have personally examined the patient and discussed assessment and plan with the IM team. I reviewed the resident note and agree with the plan with exceptions as below. 64-year-old female with history of ESRD on hemodialysis TTS who presented with a chief complaint of shortness of breath in setting of missing a session of hemodialysis. She was found to have hyperkalemia at 6.1. Dyspnea on exertion ESRD on hemodialysis Hyperkalemia Essential hypertension Consulted nephrology for hemodialysis. Plan for a session today 12/05 Monitor BMP Dose medications based on GFR Resume home levothyroxine Resume sevelamer
--- NOTE | 2024-12-05 14:10 | PC.NURSE ---
Patient transported to HD via [facility] with Rn
--- NOTE | 2024-12-05 15:31 | PC.NURSE ---
BP dropping, decreased goal to 2.5 L. Temperature also decreased to 35.8.
[2024-12-05 19:43] LABS: Anion Gap 10 (7-16); BUN/Creatinine Ratio 7 Ratio (12-20); Blood Urea Nitrogen 35 mg/dL (9-23); Calcium 9.6 mg/dL (8.3-10.6); Calcium (Corrected) 9.6 mg/dL (8.5-10.1); Carbon Dioxide 29.8 mMol/L (20.0-31.0); Chloride 97 mMol/L (98-107); Creatinine (Component) 4.8 mg/dL (0.6-1.3); Estimated Creatinine Clearance 12.4 mL/min (>60); Glucose 107 mg/dL (74-106); Osmolality,Calculated 281 (275-295); Phosphorous 3.9 mg/dL (2.4-5.1); Potassium 4.4 mMol/L (3.4-5.1); Sodium 137 mMol/L (136-145); eGFR 10 See Note
[2024-12-06] VITALS: BP 104/62; PULSE 82; RESP 18; TEMP 36.1; O2SAT 96
[2024-12-06 03:42] VITALS: BP 114/66; PULSE 76; RESP 19; TEMP 36.2; O2SAT 97
[2024-12-06 05:59] LABS: Basophils % (Auto) 1 % (0-2.5); Eosinophils # (Auto) 0.1 Thou/mm3 (0.0-0.5); Eosinophils % (Auto) 2 % (0-10); Hematocrit 29.4 % (36.0-46.0); Hemoglobin 9.4 g/dL (12.0-16.0); Immature Granulocytes % (Auto) 0 % (0-0); Immature Granulocytes Auto 0.01 Thou/mm3 (0.00-0.00); Lymphocytes # (Auto) 0.9 Thou/mm3 (1.0-4.8); Lymphocytes % (Auto) 27 % (10-50); Mean Corpuscular Hemoglobin 28.1 pg (25.0-35.0); Mean Corpuscular Volume 88 fL (80-100); Monocytes # (Auto) 0.3 Thou/mm3 (0.0-0.8); Monocytes % (Auto) 8 % (0-12); Neutrophils % (Auto) 61 % (37-80); Nucleated Red Blood Cell % 0 /100 WBC (0); Platelet Count 97 Thou/mm3 (140-440); Red Blood Count 3.34 Miln/mm3 (4.00-5.20); White Blood Count 3.3 Thou/mm3 (3.6-11.0)
[2024-12-06] MEDS: LEVOTHYROXINE SODIUM 25 MCG TABLET 75 MCG PO (06:05)
[2024-12-06 06:46] LABS: Alanine Aminotransferase 10 U/L (10-49); Albumin, Serum 3.8 gm/dL (3.4-4.8); Albumin/Globulin Ratio 1.7 (1.2-2.2); Alkaline Phosphatase 95 U/L (46-116); Anion Gap 11 (7-16); Aspartate Amino Transferase 11 U/L (0-34); BUN/Creatinine Ratio 7 Ratio (12-20); Bilirubin,Total 0.4 mg/dL (0.3-1.2); Blood Urea Nitrogen 43 mg/dL (9-23); Calcium 9.7 mg/dL (8.3-10.6); Calcium (Corrected) 9.9 mg/dL (8.5-10.1); Carbon Dioxide 28.8 mMol/L (20.0-31.0); Chloride 97 mMol/L (98-107); Creatinine (Component) 5.9 mg/dL (0.6-1.3); Estimated Creatinine Clearance 10.2 mL/min (>60); Globulin 2.3 gm/dL (2.3-3.5); Glucose 128 mg/dL (74-106); Osmolality,Calculated 286 (275-295); Potassium 4.8 mMol/L (3.4-5.1); Sodium 137 mMol/L (136-145); Total Protein 6.1 gm/dL (5.7-8.2); eGFR 8 See Note
[2024-12-06 07:22] VITALS: PULSE 74
[2024-12-06 07:57] LABS: Misc Send Out* See Sep Rpt
[2024-12-06 08:00] VITALS: BP 128/66; PULSE 73; RESP 14; TEMP 36.2; O2SAT 94
[2024-12-06] MEDS: SENNA TABLET 1 TAB PO (08:24)
[2024-12-06] MEDS: ATORVASTATIN CALCIUM 20 MG TABLET 40 MG PO (08:24)
[2024-12-06] MEDS: ASPIRIN 81 MG CHEW PO (08:25)
--- NOTE | 2024-12-06 10:00 | ESPR_ITS ---
Documentation for date of: 12/06/24 Subjective Subjective Interval history: 12/06/2024 Patient is seen and examined bedside Patient received HD on 12/05/2024. No acute overnight events and patient denies any other complaints Vitals are stable. Labs showed sodium 137, potassium 4.8, chloride 97, BUN 43, creatinine 5.9 Will schedule dialysis as per her routine schedule Exam Vital Signs Temp Pulse Resp BP Pulse Ox O2 Del Method O2 Flow Rate 97.1 F 71 18 138/65 H 99 Nasal Cannula 1 12/06/24 12:00 12/06/24 12:00 12/06/24 12:00 12/06/24 12:00 12/06/24 12:00 12/06/24 12:00 12/06/24 12:00 Narrative Exam General: Awake. HEENT: Normocephalic, atraumatic, mucous membranes moist. Heart: Regular rate and rhythm, Systolic murmur heard at aortic area Lungs: Clear to auscultation with no wheezing or crackles. Abdomen: Soft, nondistended, nontender, positive bowel sounds. ?No guarding or rebound tenderness. Neurologic: Alert and oriented x3, no gross neurological deficit, and patient able to move all 4 extremities. Extremities: No edema. Skin: No rash or ecchymoses. Objective Labs 12/06/24 04:59 12/06/24 04:59 Labs: Laboratory Results - last 24 hr 12/05/24 12/06/24 18:51 04:59 WBC 3.3 L RBC 3.34 L Hgb 9.4 L Hct 29.4 L MCV 88 MCH 28.1 MCHC 32.0 RDW Std Deviation 47.0 H Plt Count 97 L Neut % (Auto) 61 Lymph % (Auto) 27 Elk % (Auto) 8 Eos % (Auto) 2 Baso % (Auto) 1 Neut # (Auto) 2.0 Lymph # (Auto) 0.9 L [place] # (Auto) 0.3 Eos # (Auto) 0.1 Baso # (Auto) 0.0 Immature Gran # (Auto) 0.01 H Absolute Nucleated RBC 0.00 Immature Gran % 0 Nucleated RBC % 0 Sodium 137 137 Potassium 4.4 D 4.8 Chloride 97 L 97 L Carbon Dioxide 29.8 28.8 Anion Gap 10 11 BUN 35 H 43 H Creatinine 4.8 H* D 5.9 H* D Estim Creat Clear Calc 12.4 L 10.2 L eGFR 10 L* 8 L* BUN/Creatinine Ratio 7 L 7 L Glucose [address] Glu mg/dL Cancelled Hemoglobin A1c Cancelled Calculated Osmolality 281 286 Calcium 9.6 9.7 Corrected Calcium 9.6 9.9 Phosphorus 3.9 Total Bilirubin 0.4 AST 11 ALT 10 Alkaline Phosphatase 95 D Total Protein 6.1 Albumin 4.0 3.8 Globulin 2.3 Albumin/Globulin Ratio 1.7 ABG Interpretation ABG results: 12/05/24 07:51 VBG pH 7.23 L VBG pCO2 67 H VBG pO2 38 VBG Base Excess -1 Quality Measures Quality Measures VTE prophylaxis Assessment & Plan Plan A 64-year-old female with past medical history of hypotension, hypothyroidism, CHF, homeless, living in a senior living, ESRD on HD [//] since 5 years presented to the hospital with chief complaints of shortness of breath since 1 day and consulted for hemodialysis as patient is pending dialysis # ESRD on HD [] # Hyperkalemia -Patient is on dialysis since 5 years, currently getting dialysis through AV fistula -Per patient, did not miss any dialysis sessions -Patient is admitted to the hospital with shortness of breath since 1 day -Patient is still able to produce urine, 3-5 times in a day -Found to have elevated blood pressures in the ED, but patient stated that she is normally hypotensive and is using midodrine -Labs showed sodium 136, potassium 6.1, BUN 84, creatinine 7.9 -Urine analysis showed clear urine with urine pH 8, 3+ proteinuria, 2+ glucosuria, 2+ blood, 378 RBC, 13 WBC Plan -Received hyperkalemic treatment -Patient will get HD as per her routine schedule -Avoid nephrotoxic medications and renally dose medications # Chronic anemia, normocytic normochromic Likely due to anemia due to kidney disease -Patient was found to have hemoglobin of 10-11 since 2020 -Will give erythropoietin injections during dialysis #Acute hypoxic respiratory failure #Volume overloaded status #Underlying CHF #Elevated troponin, likely NSTEMI type II Rest of the medical conditions to be treated as per primary team Thank you for allowing us to involve in the care of the patient Patient plan of care was discussed with the attending physician, Dr. Carmen Quintero, PGY1 Attending Provider Attestation/Addendum Patient seen and examined with resident physician Dr. Mei. Note reviewed, agree with findings and recommendations. Patient did receive dialysis yesterday. Clinically she is stable for discharge.
--- NOTE | 2024-12-06 11:49 | ESDS_ITS ---
<Statement entered by Maritza Garcia DO - 12/07/24 08:45> I, Maritza Garcia DO, attest that I was physically present for the huggins portions of the service and evaluated the patient with the resident and I reviewed and discussed the case with the resident and agree with the resident's findings and plans of care as documented above <Statement entered by Patricia Chang MD - 12/06/24 14:06> Patient was seen and examined by me personally. I have reviewed the below documentation by the team resident and agree with its findings with any exceptions as below. Discharge plan was discussed with the attending, Dr. Garcia. Patient completed dialysis yesterday afternoon. She is seen this morning on 1L O2, her baseline status. She reported feeling better. Potassium after dialysis downtrended from 6.1 to 4.4. Patient is stable to be discharged. Patricia Chang, PGY-2 Planned Discharge Date 12/06/24 DS: Providers Provider Date of admission: 12/05/24 12:18 Primary care physician: Viky Wick PA-C Admitting Provider: Jase Orozco MD Attending Provider on Admission: Maritza Garcia DO Consults: 12/05/24 13:43 Consult to Nephrology Routine Comment: Consulting Provider: Luz Morales Attending Provider on DC: Tj Estrella MD Discharging Provider: Tj Estrella MD DS: Diagnosis Problem List Completed Was Problem List Reviewed/Reconciled?: Yes Hospital Course Hospital Course Hospital course: 64-year-old female with past medical history of ESRD on HD (), hypertension, hypothyroidism, CHF presented to the ED with shortness of breath after missing dialysis session. In the ED, patient was hypertensive, regular heart rate, regular respiratory rate but afebrile satting 99 on 4 L nasal cannula. Pertinent lab findings include a potassium of 6.1, troponin was mildly elevated 0.1-1 and BNP was 632. Urinalysis showed hematuria pyuria but no bacteria and U-Tox was negative. Chest x-ray confirmed mild to moderate vascular congestion. Patient was admitted for acute hypoxic respiratory failure secondary to volume overload status secondary to need of emergent dialysis. In the ED, patient was given temporizing measures for the and elevated potassium and potassium eventually improved on repeat lab findings. Nephrology was consulted and completed dialysis session on 12/05 for the patient with 2-3 liters of ultrafiltration removed. Patient symptomatically improved and will be discharged with the following strict instructions. Please continue following up with Dr. Morales, nephrology, and continue going to dialysis sessions (T//) Continue taking all your home medications as prescribed Please follow-up with your PCP within 1-2 weeks after discharge If your symptoms worsen or if you develop new chest pain, shortness of breath, abdominal pain or dizziness - please come back to the ED immediately. Hospital Diagnosis: #Acute hypoxic respiratory failure #Hypervolemia #Underlying CHF #Elevated troponin, likely NSTEMI type II #ESRD on dialysis (/) #Hyperkalemia #Anemia of chronic disease #Thrombocytopenia #Hypertension #Hypothyroidism Tj Estrella, PGY-1 Status at Discharge Overall status at discharge: patient is progressing back to baseline Time Spent with Patient Time attestation: Total time spent providing and/or coordinating discharge services: 45 minutes Time spent: Greater than 30 minutes Exam Vital Signs Temp Pulse Resp BP Pulse Ox O2 Del Method O2 Flow Rate 97.1 F 73 14 128/66 94 L Nasal Cannula 1 12/06/24 08:00 12/06/24 08:00 12/06/24 08:00 12/06/24 08:00 12/06/24 08:00 12/06/24 08:00 12/06/24 08:00 Narrative Exam Physical Exam: GENERAL: Awake, answering questions appropriately, appears stated age, obese HEENT: NC/AT. Moist mucosa. PERRLA/EOMI. CARDIO: Heart RRR, IV/ systolic ejection murmur and holosytolic murmur on L sternal border and 4/5th intercostal space, no JVD. PULM: No coughing or visible SOB but is currently on 3 to 4 L oxygen. Wheezing noted bilaterally but otherwise lungs are clear to auscultation bilaterally GI: Abdomen soft, NT/ND, +BS. SKIN/MSK/EXT: Right brachiocephalic AV fistula. No wounds/discoloration/rashes/edema/amputations. +Pedal pulses present B/L. NEURO: Oriented x3, no focal neurologic deficits, Moves extremities x4. Discharge Plan Plan Patient Disposition: HOME (Self Care) Care Plan Goals: Please continue following up with Dr. Morales, nephrology, and continue going to dialysis sessions (T//S) Continue taking all your home medications as prescribed Please follow-up with your PCP within 1-2 weeks after discharge If your symptoms worsen or if you develop new chest pain, shortness of breath, abdominal pain or dizziness - please come back to the ED immediately. Prescriptions/Referrals Prescriptions/Med Rec: Continued levothyroxine 75 mcg tablet 75 mcg PO DAILY sevelamer carbonate 800 mg tablet 1,600 mg PO TID atorvastatin 40 mg tablet 40 mg PO QDAY Qty: 30 0RF aspirin 81 mg tablet,chewable 1 tab PO DAILY acetaminophen 650 mg tablet extended release 650 mg PO Q8H PRN (Reason: pain) midodrine 5 mg tablet 5 mg PO DAILY cinacalcet 30 mg tablet 30 mg PO .COMPLEX Rx Instructions: 30 mg orally 3x a week, mon-wed-fri; Discontinued amoxicillin-pot clavulanate 875-125 mg tablet 1 tab PO BID Qty: 14 0RF Referrals: Viky Wick PA-C [Primary Care Provider] - Patient/Caregiver Discharge Instructions Other Discharge Diet Instructions: Increased protein intake (1.2-1.8 grams per kilogram of body weight) is necessary to compensate for protein loss during dialysis. Lean protein sources such as meat, poultry, fish, eggs, and dairy are recommended. Sodium intake should be restricted (typically 1,000-2,000 milligrams per day) to prevent fluid retention and high blood pressure. Potassium levels need to be carefully monitored. Foods high in potassium, such as bananas, potatoes, and dairy, may need to be limited. Phosphorus intake should also be restricted (typically 800-1,000 milligrams per day) to prevent bone problems. Foods high in phosphorus include meat, dairy, and nuts. Education Materials: Exercise to Help Your Kidneys, Finding Support for Kidney Disease, Coping with Kidney Failure Print Language: Yoruba Stand Alone Forms: Devi Award Info., Patient Portal Info Letter, Work/Release Restrictions Discharge Order Discharge Orders: Discharge (Routine); Ordered 12/06/24 Ordered By: Tj Estrella Quality Discharge Quality Measures VTE prophylaxis
[2024-12-06 12:00] VITALS: BP 138/65; PULSE 71; PULSE 82; RESP 18; TEMP 36.2; O2SAT 99
[2024-12-06] MEDS: SEVELAMER CARBONATE 800 MG TABLET 1600 MG PO (12:00)
--- NOTE | 2024-12-06 14:34 | PC.SS ---
SS met with patient regarding her d/c plan.? Pt is alert/oriented.? Pt was admitted for Emergent Dialysis.? Pt confirmed demographic and contact information is correct on facesheet.? Pt resides at the [facility].? Pt ambulates independently without assistance or DME.? Pt is ok with all ADLs.? Pt states she uses 2 liters of home O2 from [facility].? Pt states her son will provide transportation and will bring O2 tank for transportation.? Patient?s choice is to home to [facility] upon d/c.? Pt states she has long sleeve shirt, bottoms, tennis shoes, and socks.? SS provided pt with underwear.? SS also provided pt with [employer] and list for transportation from the [employer].? Bedside nurse, Melody provided pt with sack lunch to take with her.?? DC Plan:? Return to [facility] Next of Kin:? Stephan Jackson, son, phone# [phone] PCP:? Viky Wick D/C plan:? Return home Next of Kin:? Stephan Jackson, son, phone# [phone] PCP:? Dr. Viky Wick Address:? Correct on facesheet
== END 2024-12-06 12:51 | disposition home or self-care (01) ==
LOC: SERX 12:10 → SERHOLD 15:24 → S2NX 18:15 → S3SX 12-06 10:52
PROVIDERS: Student in an Organized Health Care Education/Training Program; Admitting Provider Student in an Organized Health Care Education/Training Program; Emergency Provider Emergency Medicine; PCP Physician Assistant; Visit Provider Internal Medicine
DX: J96.01 Acute respiratory failure with hypoxia (principal); J96.02 Acute respiratory failure with hypercapnia; Z99.2 Dependence on renal dialysis; Z90.710 Acquired absence of both cervix and uterus; Z59.01 Sheltered homelessness; N18.6 End stage renal disease; I50.32 Chronic diastolic (congestive) heart failure; I13.2 Hypertensive heart and chronic kidney disease with heart failure and with stage 5 chronic kidney disease, or end stage renal disease; F41.9 Anxiety disorder, unspecified; E87.5 Hyperkalemia; E78.00 Pure hypercholesterolemia, unspecified; E66.9 Obesity, unspecified; E03.9 Hypothyroidism, unspecified; D69.6 Thrombocytopenia, unspecified; F32.A Depression, unspecified; D63.1 Anemia in chronic kidney disease; R79.89 Other specified abnormal findings of blood chemistry; Z01.810 Encounter for preprocedural cardiovascular examination; I16.0 Hypertensive urgency
CPT/HCPCS: 36415; 71045; 80053; 80069; 80307; 81001; 82803; 83036; 83605; 83690; 83735; 83880; 84484; 85025; 87040; 87086; 90935; 93005; 94762; 99291; G0378; J0360; A9270; G0257

== ENCOUNTER 2025-01-06 10:20 | Emergency (ER) | payer MEDICAID, SELFPAY ==
[2025-01-06] VITALS (20 sets, daily range): BP systolic 118–186; BP diastolic 60–87; PULSE 60–73; RESP 17–20; TEMP 36.6–36.7; O2SAT 93–97; BMI 32.8
--- NOTE | 2025-01-06 10:37 | PD.EDRME ---
Rapid Medical Screening Exam RME Arrival date/time: 01/06/25 10:20 62-year-old female with ESRD on dialysis presents to the emergency department today stating that she missed her dialysis today Dr. Watkins consulted reports the patient should have hemodialysis today here in the ER Chief Complaint: General Adult/Misc Complain Vital signs: Vital Signs Temperature 98.1 F 01/06/25 10:29 Pulse Rate 73 01/06/25 10:29 Respiratory Rate 20 01/06/25 10:29 Blood Pressure 148/75 H 01/06/25 10:29 Pulse Oximetry (%) 93 L 01/06/25 10:29 Oxygen Delivery Method Room Air 01/06/25 10:29
[2025-01-06 11:22] LABS: Basophils % (Auto) 1 % (0-2.5); Eosinophils # (Auto) 0.2 Thou/mm3 (0.0-0.5); Eosinophils % (Auto) 3 % (0-10); Hematocrit 30.7 % (36.0-46.0); Immature Granulocytes % (Auto) 0 % (0-0); Immature Granulocytes Auto 0.01 Thou/mm3 (0.00-0.00); Lymphocytes # (Auto) 1.1 Thou/mm3 (1.0-4.8); Lymphocytes % (Auto) 26 % (10-50); Mean Corpuscular HGB Conc 32.6 g/dl (31.0-37.0); Mean Corpuscular Hemoglobin 28.4 pg (25.0-35.0); Mean Corpuscular Volume 87 fL (80-100); Monocytes # (Auto) 0.3 Thou/mm3 (0.0-0.8); Monocytes % (Auto) 8 % (0-12); Neutrophils # (Auto) 2.7 Thou/mm3 (1.8-7.7); Neutrophils % (Auto) 62 % (37-80); Nucleated Red Blood Cell % 0 /100 WBC (0); Platelet Count 142 Thou/mm3 (140-440); Red Blood Count 3.52 Miln/mm3 (4.00-5.20); White Blood Count 4.4 Thou/mm3 (3.6-11.0)
--- NOTE | 2025-01-06 11:36 | PD.EDADULT ---
ED General RME/HPI General Chief complaint: General Adult/Misc Complain Stated complaint: I NEED DIALYSIS. THEY DIDN'T PICK ME [facility] TODAY Time Seen by Provider: 01/06/25 11:21 Arrival date/time: 01/06/25 10:20 RME / HPI RME / HPI narrative: 62-year-old female with ESRD on dialysis presents to the emergency department today stating that she missed her dialysis today. Patient told me that nobody picked her up today. Per dialysis. She usually dialysis [facility]. She has been on dialysis for more than 5 years. Patient is denying any complaints no shortness of breath no swelling no chest pain no fever no abdominal pain. Dr. Watkins consulted reports the patient should have hemodialysis today here in the ER Related Data Home Medications ?Medication ?Instructions ?Recorded ?Confirmed levothyroxine 75 mcg tablet 75 mcg PO DAILY 01/09/24 12/06/24 sevelamer carbonate 800 mg tablet 1,600 mg PO TID 01/09/24 12/06/24 acetaminophen 650 mg 650 mg PO Q8H PRN pain 12/06/24 12/06/24 tablet,extended release aspirin 81 mg chewable tablet 1 tab PO DAILY 12/06/24 12/06/24 cinacalcet 30 mg tablet 30 mg PO .COMPLEX 12/06/24 12/06/24 midodrine 5 mg tablet 5 mg PO DAILY 12/06/24 12/06/24 Previous Rx's ?Medication ?Instructions ?Recorded atorvastatin 40 mg tablet 40 mg PO QDAY #30 tabs 09/27/24 Allergies Allergy/AdvReac Type Severity Reaction Status Date / Time peach Allergy Severe SKIN RASH Verified 01/06/25 10:22 Review of Systems Review of Systems Narrative Review of Systems: Review of system reviewed and within normal limits except mentioned in HPI ED Exam Narrative Physical exam: VITAL SIGNS: Reviewed. GENERAL APPEARANCE: Alert and interactive, follows commands, no acute distress, HEAD AND FACE: Non-traumatic. ENT: PERRL, pink conjunctivitis, eyelid no trauma, Mucous membrane moist. NECK: Supple, nontender, no nuchal rigidity. CHEST: No tenderness, no crepitus, no paradoxical movement, no retractions. LUNGS: Clear, well ventilated, symmetric, no rales, no wheezing, no ronchi, no stridor, good breath sounds bilaterally. HEART: Regular rate, regular rhythm, no murmur, no gallops. ABDOMEN: Soft, positive bowel sounds, nondistended, no guarding, nontender, no rebound, no masses, RECTAL: Deferred. GENITAL: Deferred. NEUROLOGICAL: Gross motor function intact sensory function intact, Appropriate for age. MUSCULOSKELETAL: low back nontender, full range of motion. EXTREMITIES: Nontender, full range of motion. SKIN: Color pink, dry, no rash, no lacerations, no abrasions, no contusions. LYMPHATICS: Deferred. Course Quality Measures none Orders Category Date Time Status Hemodialysis Urgent Care 01/06/25 12:30 Active Consult to Nephrology Stat Cons 01/06/25 10:35 Ordered CBC Stat Lab 01/06/25 11:07 Completed CMP [Comprehensive Metabolic Panel] Stat Lab 01/06/25 11:07 Completed Vital Signs Vital signs: Vital Signs Temperature 98.1 F 01/06/25 10:29 Pulse Rate 73 01/06/25 10:29 Respiratory Rate 20 01/06/25 10:29 Blood Pressure 148/75 H 01/06/25 10:29 Pulse Oximetry (%) 93 L 01/06/25 10:29 Oxygen Delivery Method Room Air 01/06/25 10:29 Discharge Plan Plan Patient Disposition: HOME (Self Care) Disposition Comment: Stable Prescriptions/Referrals Prescriptions/Med Rec: No Action levothyroxine 75 mcg tablet 75 mcg PO DAILY sevelamer carbonate 800 mg tablet 1,600 mg PO TID atorvastatin 40 mg tablet 40 mg PO QDAY Qty: 30 0RF aspirin 81 mg tablet,chewable 1 tab PO DAILY acetaminophen 650 mg tablet extended release 650 mg PO Q8H PRN (Reason: pain) midodrine 5 mg tablet 5 mg PO DAILY cinacalcet 30 mg tablet 30 mg PO .COMPLEX Rx Instructions: 30 mg orally 3x a week, mon-wed-fri; Referrals: Woody Stokes MD [Primary Care Provider] - In 1 week Problem List Clinical Impression: Encounter for hemodialysis for ESRD Patient/Caregiver Discharge Instructions Discharge Activity: activity as tolerated Education Materials: Hemodialysis Additional Instructions: Thank you for the opportunity for serving you today. You are stable for discharged . You are advised to: Follow-up with your PCP in 1 to 2 days Return to ED for worsening of symptoms Print Language: Kyrgyz Stand Alone Forms: Devi Award Info., Patient Portal Info Letter MDM Patient Acuity Narrative: 62-year-old female with ESRD on dialysis presents to the emergency department today stating that she missed her dialysis today. Patient told me that nobody picked her up today. Per dialysis. She usually dialysis [facility]. She has been on dialysis for more than 5 years. Patient is denying any complaints no shortness of breath no swelling no chest pain no fever no abdominal pain. Dr. Watkins consulted reports the patient should have hemodialysis today here in the ER Patient underwent hemodialysis today in the emergency room. Stable for discharge back to [facility] Labs Lab(s) Interpretation(s): CBC showed slight anemia of 10.0 hemoglobin of 13.7 CMP significant for BUN of 96 creatinine 7.2
[2025-01-06 11:42] LABS: Alanine Aminotransferase 13 U/L (10-49); Albumin/Globulin Ratio 1.7 (1.2-2.2); Alkaline Phosphatase 120 U/L (46-116); Anion Gap 9 (7-16); Aspartate Amino Transferase 14 U/L (0-34); BUN/Creatinine Ratio 13 Ratio (12-20); Bilirubin,Total 0.2 mg/dL (0.3-1.2); Blood Urea Nitrogen 96 mg/dL (9-23); Calcium 8.9 mg/dL (8.3-10.6); Calcium (Corrected) 8.9 mg/dL (8.5-10.1); Carbon Dioxide 29.5 mMol/L (20.0-31.0); Chloride 100 mMol/L (98-107); Creatinine (Component) 7.2 mg/dL (0.6-1.3); Estimated Creatinine Clearance 8.3 mL/min (>60); Globulin 2.4 gm/dL (2.3-3.5); Glucose 149 mg/dL (74-106); Osmolality,Calculated 308 (275-295); Potassium 4.8 mMol/L (3.4-5.1); Sodium 138 mMol/L (136-145); Total Protein 6.4 gm/dL (5.7-8.2); eGFR 6 See Note
== END 2025-01-06 17:28 | disposition home or self-care (01) ==
PROVIDERS: Nurse Practitioner Primary Care; Emergency Provider Emergency Medicine; PCP Pediatrics
DX: N18.6 End stage renal disease (principal); Z99.2 Dependence on renal dialysis
CPT/HCPCS: 36415; 80053; 85025; 90935; 99284; G0257

== ENCOUNTER 2025-03-29 04:52 | Inpatient (IN) | payer MEDICAID, SELFPAY ==
[2025-03-29] VITALS (32 sets, daily range): BP systolic 95–253; BP diastolic 56–114; PULSE 67–98; RESP 14–30; TEMP 36.2–37; O2SAT 92–100; BMI 32.5
--- NOTE | 2025-03-29 05:10 | PD.EDSOB ---
ED SOB =RME/HPI General Chief Complaint: Shortness of Breath/Dyspnea Stated Complaint: SOB Time Seen by Provider: 03/29/25 05:13 Arrival date/time: 03/29/25 04:52 RME / HPI RME / HPI Narrative: DR. VELEZ MAIN ED EVALUATION: 64 y/o female with Hx of known ESRD dialyzed most recently on Wednesday presents with progressive dyspnea throughout the evening. Patient is on home O2 and denies any recent fever, cough, vomiting, or chest pain. Patient arrives by EMS in notably and markedly hypertensive and moderate respiratory distress. No other concerns or complaints expressed at this time. Related Data Home Medications ?Medication ?Instructions ?Recorded ?Confirmed levothyroxine 75 mcg tablet 75 mcg PO DAILY 01/09/24 03/29/25 sevelamer carbonate 800 mg tablet 1,600 mg PO TID 01/09/24 03/29/25 acetaminophen 650 mg 650 mg PO Q8H PRN pain 12/06/24 03/29/25 tablet,extended release aspirin 81 mg chewable tablet 1 tab PO DAILY 12/06/24 03/29/25 cinacalcet 30 mg tablet 30 mg PO .COMPLEX 12/06/24 03/29/25 midodrine 5 mg tablet 5 mg PO DAILY 12/06/24 03/29/25 carvedilol 3.125 mg tablet mg 03/29/25 furosemide 40 mg tablet mg 03/29/25 sertraline 50 mg tablet mg 03/29/25 Previous Rx's ?Medication ?Instructions ?Recorded atorvastatin 40 mg tablet 40 mg PO QDAY #30 tabs 09/27/24 Allergies Allergy/AdvReac Type Severity Reaction Status Date / Time peach Allergy Severe SKIN RASH Verified 01/06/25 10:22 Review of Systems Review of Systems Systems Reviewed: All systems reviewed, normal except as documented Past Medical History Past Medical History CARDIAC: Positive Cardiac Disorders, Hypercholesterolemia, Congestive Heart Failure, Edema, Hypertension and Hypotension GASTROINTESTINAL: Positive Gastrointestinal Disorders, Gall Bladder Disease and Obesity GENITOURINARY: Positive Renal Disease REPRODUCTIVE: Positive Endometriosis and Previous Pregnancies ENDOCRINE: Positive Endocrine Disorders and Hypothyroidism PSYCHO/SOCIAL: Positive Recreational Drug Use (in past), Depression and Anxiety OTHER HISTORY: Positive Hospitalization and Chicken Pox Family History FAMILY HISTORY: Positive Family Cardiac Disorders, Family Gastrointestinal Problems and Family Surgery Surgical History SURGICAL: Positive Abdominal Surgery, Hysterectomy and Tubal Ligation ED Exam Narrative Physical exam: GEN. APPEARANCE: The patient is alert awake oriented X-3 in respiratory distress, lying down comfortably, does not look ill/toxic. Patient has good eye contact. Patient is cooperative. VITALS: All vitals were reviewed and the pulse ox is 92% on room air which is abnormal according to my interpretation. HEENT: Normocephalic, atraumatic. Pupils are equal and reactive. Oral mucosa is moist. Patent Nares NECK: Supple, nontender, no thyromegaly, no meningismus, no JVD, no step offs CHEST: Symmetrical, atraumatic, and with equal expansion , Nontender on palpation no deformity and no crepitus. CARDIOVASCULAR: Heart regular rhythm no murmur or gallop rub or extra beats. Notably hypertensive. LUNGS: Clear to auscultation bilaterally with symmetrical chest rise. No laboring tachypnea or wheezing. Moderate respiratory distress with conversational dyspnea. Diminished breath sounds. No rales and no rhonchi. ABDOMEN: Soft, flat, nontender to palpation, no guarding or rebound tenderness. There are no abnormal masses palpated. Active and normal bowel sounds. EXTREMITIES: Nontender. No edema. No cyanosis. Patient is able to move all 4 extremities well, with full ROM and good CSM. SKIN: Warm and dry, no jaundice or rashes noted. MUSCULOSKELETAL: No lubar or midline bony tenderness. There is no CVA tenderness. No paraspinal muscle spasm or tenderness. NEURO: Patient is ROJAS x 4, Cranial nerves II through XII grossly intact. There is no focal neurologic deficits noted. GCS is 15, PNS and [employer] appear grossly intact. PSYCHIATRIC: Patient is in normal mood and affect, cooperative, no SI or HI or hallucinations. Course Course Course Narrative: CXR is ordered for determining the etiology of shortness of breath. Quality Measures none Orders Category Date Time Status EKG (ED ONLY) *Do not use* NOW Care 03/29/25 05:14 Completed EKG (ED Only) Stat Exams 03/29/25 05:14 Ordered XR chest 1V portable Stat Exams 03/29/25 05:27 Taken B-Type Natriuretic Peptide Stat Lab 03/29/25 05:22 Completed CBC Stat Lab 03/29/25 05:22 Completed Comprehensive Metabolic Panel Stat Lab 03/29/25 05:22 Completed Drug Screen,Urine Stat Lab 03/29/25 05:14 Ordered Magnesium Stat Lab 03/29/25 05:22 Completed Partial Thromboplastin Time Stat Lab 03/29/25 05:22 Completed Prothrombin Time with INR Stat Lab 03/29/25 05:22 Completed Troponin I Stat Lab 03/29/25 05:22 Completed Urinalysis Stat Lab 03/29/25 05:14 Ordered Morphine Inj Med 03/29/25 05:13 Discontinued 4 mg IVP X1 ONE Nitroglycerin Oint 2% [Nitro-paste Oint 2%] Med 03/29/25 05:13 Discontinued 2 inch TOP X1 ONE hydrALAZINE INJ [Apresoline Inj] Med 03/29/25 05:13 Discontinued 10 mg IVP X1 ONE BiPAP / CPAP NOW RT 03/29/25 05:13 Active Vital Signs Vital signs: Vital Signs Temperature 97.8 F 03/29/25 05:03 Pulse Rate 87 03/29/25 05:03 Respiratory Rate 24 H 03/29/25 05:03 Blood Pressure 211/114 H 03/29/25 05:03 Pulse Oximetry (%) 100 03/29/25 05:03 Oxygen Delivery Method Room Air 03/29/25 05:03 Shortness of Breath / Dyspnea MDM Narrative MDM Narrative:: Scribe Attestation: IChaya, am scribing for and in the presence of Dr. Velez. Provider Notation: Although this document has been carefully reviewed, there may still be some phonetic and other typographical errors.? These errors are purely grammatical due to imperfections in the software program and should not be construed in any way to? compromise the substance of the patient's medical care during this visit. 64 y/o female with Hx of known ESRD dialyzed most recently on Wednesday presents with progressive dyspnea throughout the evening. Patient is on home O2 and denies any recent fever, cough, vomiting, or chest pain. Please see PE findings. Patient signed-out to Dr. Molina at 6 AM. Patient data External records reviewed:: [facility] previous records (Reviewed prior ED records from 01/06/25. Patient was seen for Encounter for hemodialysis for ESRD.) and EMS form Clinical information provided by:: patient and EMS Social determinants that could affect healthcare access:: none Patient has the following chronic illnesses:: Hypercholesterolemia, Congestive Heart Failure, Edema, Hypertension, Hypotension, Gall Bladder Disease, Obesity, Renal Disease, Endometriosis, Hypothyroidism, Recreational Drug Use, Depression and Anxiety How is presenting disease/condition affected by chronic disease/condition?: exacerbated by Evaluation data The following diagnostics were reviewed and interpreted by me:: lab results, radiology exam(s) and EKG tracing(s) (EKG shows normal siinus rhythm, 88 bpm, no acute ST changes, no ventricular ectopy, axis leftward, per my interpretation.) Lab and/or radiology exams considered but not ordered:: None Interpretation Summary: RADIOLOGY Chest X-Ray: Pending official radiology report. Medications / Prescriptions Medications or Prescriptions considered but not ordered:: None Medication administrations:: Medication Administration History Discontinued Medications Hydralazine HCl (Hydralazine Inj 20 Mg/Ml Vial) 10 mg IVP X1 ONE Stop: 03/29/25 05:14 Last Admin: 03/29/25 05:42 Dose: 10 mg Documented By: DT Morphine Sulfate (Morphine Sulf Inj 10 Mg/Ml Vial) 4 mg IVP X1 ONE Stop: 03/29/25 05:14 Last Admin: 03/29/25 06:22 Dose: 4 mg Documented By: DT Comments: GIVEN FOR BLOOD PRESSURE Nitroglycerin (Nitroglycerin Oint 2% 1 Inch Packet) 2 inch TOP X1 ONE Stop: 03/29/25 05:14 Last Admin: 03/29/25 05:38 Dose: 2 inch Documented By: DT See above Consultations Consultation(s) initiated? (list below): No Diagnosis Shortness of Breath Differential Diagnosis: acute exacerbation of chronic obstructive airways disease, congestive heart failure, community acquired pneumonia, asthma with exacerbation and pulmonary embolism Most likely diagnosis given after review of the tests above:: ESRD on dialysis, accelerated hypertension, CHF Admission Indicated Admission indicated?: not indicated Explain why admission is indicated or not indicated:: Pending full work-up and final disposition. Admission Request Was there a request for admission?: No Disposition Plan Disposition Plan: other (specify) (Signed-out to oncoming ED physician at 6 AM.) Critical Care Time Critical Care Time Critical Care Time: Yes Total Critical Care Time (min.): 45 Attestation: The high probability of sudden, clinically significant deterioration in the patient?s condition required the highest level of my preparedness to intervene urgently. ? The services I provided to this patient were to treat and/or prevent clinically significant deterioration. Services included the following: chart data review, reviewing nursing notes and/or old charts, documentation time, information systems consultant collaboration regarding findings and treatment options, medication orders and management, direct patient care, vital sign assessments and ordering, interpreting and reviewing diagnostic studies and lab tests. ? Aggregate critical care time includes only time during which I was engaged in work directly related to the patient?s care, as described above, whether at bedside or elsewhere in the Emergency Department. It did not include time spent performing other reported procedures or the services of residents, students, nurses or physician assistants. Discharge Plan Prescriptions/Referrals Prescriptions/Med Rec: No Action levothyroxine 75 mcg tablet 75 mcg PO DAILY sevelamer carbonate 800 mg tablet 1,600 mg PO TID atorvastatin 40 mg tablet 40 mg PO QDAY Qty: 30 0RF aspirin 81 mg tablet,chewable 1 tab PO DAILY acetaminophen 650 mg tablet extended release 650 mg PO Q8H PRN (Reason: pain) midodrine 5 mg tablet 5 mg PO DAILY cinacalcet 30 mg tablet 30 mg PO .COMPLEX Rx Instructions: 30 mg orally 3x a week, mon-wed-fri; furosemide 40 mg tablet carvedilol 3.125 mg tablet sertraline 50 mg tablet Referrals: Viky Wick PA-C [Primary Care Provider] - In 1 week Problem List Clinical Impression: Accelerated hypertension, ESRD on dialysis, CHF (congestive heart failure) Patient/Caregiver Discharge Instructions Print Language: Indonesian
--- NOTE | 2025-03-29 05:27 | XR_ITS ---
Examination: AP chest single view TECHNIQUE: AP portable upright chest single view Date and time: March 29, 2025, 0528 hours INDICATION: Chest pain and shortness of breath today. FINDINGS: [id number] CHF. Enlarged cardiac contour with prominent vascular congestion including central vascular engorgement. Perihilar basilar edema Prominent osteopenia IMPRESSION: [id number] CHF
[2025-03-29] MEDS: NITROGLYCERIN OINT 2% 1 INCH PACKET 2 INCH TOP (05:38)
[2025-03-29] MEDS: hydrALAZINE INJ 20 MG/ML VIAL 10 MG IVP (05:42)
[2025-03-29 05:43] LABS: Basophils # (Auto) 0.0 Thou/mm3 (0.0-0.2); Basophils % (Auto) 0 % (0-2.5); Eosinophils # (Auto) 0.2 Thou/mm3 (0.0-0.5); Eosinophils % (Auto) 3 % (0-10); Hematocrit 35.2 % (36.0-46.0); Hemoglobin 11.4 g/dL (12.0-16.0); Immature Granulocytes Auto 0.02 Thou/mm3 (0.00-0.00); Lymphocytes # (Auto) 1.3 Thou/mm3 (1.0-4.8); Lymphocytes % (Auto) 20 % (10-50); Mean Corpuscular HGB Conc 32.4 g/dl (31.0-37.0); Mean Corpuscular Hemoglobin 28.4 pg (25.0-35.0); Mean Corpuscular Volume 88 fL (80-100); Monocytes # (Auto) 0.5 Thou/mm3 (0.0-0.8); Monocytes % (Auto) 8 % (0-12); Neutrophils # (Auto) 4.4 Thou/mm3 (1.8-7.7); Neutrophils % (Auto) 69 % (37-80); Nucleated Red Blood Cell # 0.00 Thou/mm3 (0.00-0.00); Nucleated Red Blood Cell % 0 /100 WBC (0); Platelet Count 132 Thou/mm3 (140-440); RDW Standard Deviation 43.8 fL (36.4-46.3); Red Blood Count 4.02 Miln/mm3 (4.00-5.20); White Blood Count 6.4 Thou/mm3 (3.6-11.0)
[2025-03-29 05:51] LABS: INR 1.0 (0.9-1.3); Partial Thromboplastin Time 34.6 Seconds (22.0-36.0); Prothrombin Time 11.4 Seconds (9.0-12.2)
[2025-03-29 06:08] LABS: B-Type Natriuretic Peptide 1508 pg/mL (0-100)
[2025-03-29 06:13] LABS: Alanine Aminotransferase < 7 U/L (10-49); Albumin, Serum 4.4 gm/dL (3.4-4.8); Albumin/Globulin Ratio 1.6 (1.2-2.2); Alkaline Phosphatase 81 U/L (46-116); Anion Gap 11 (7-16); Aspartate Amino Transferase 14 U/L (0-34); BUN/Creatinine Ratio 8 Ratio (12-20); Bilirubin,Total 0.3 mg/dL (0.3-1.2); Blood Urea Nitrogen 65 mg/dL (9-23); Calcium 9.4 mg/dL (8.3-10.6); Calcium (Corrected) 9.4 mg/dL (8.5-10.1); Carbon Dioxide 26.8 mMol/L (20.0-31.0); Chloride 100 mMol/L (98-107); Creatinine (Component) 8.6 mg/dL (0.6-1.3); Estimated Creatinine Clearance 6.9 mL/min (>60); Globulin 2.8 gm/dL (2.3-3.5); Glucose 116 mg/dL (74-106); Magnesium 2.3 mg/dL (1.6-2.6); Osmolality,Calculated 295 (275-295); Potassium 5.2 mMol/L (3.4-5.1); Sodium 138 mMol/L (136-145); Total Protein 7.2 gm/dL (5.7-8.2); eGFR 5 See Note
[2025-03-29 06:16] LABS: Troponin I 0.115 ng/mL (0.0-0.045)
[2025-03-29] MEDS: MORPHINE SULF INJ 10 MG/ML VIAL 4 MG IVP (06:22)
--- NOTE | 2025-03-29 06:43 | PD.EDADDENDU ---
Emergency Room Addendum <Giovana Clark - Last Filed: 03/29/25 08:23> Addendum Narrative: 0600: Care assumed from Dr. Aguirre, the previous shift emergency physician. Past medical, surgical, social and family history reviewed. Vitals and home medications reviewed. I will assume the care of the patient at this time, pending full work-up and final disposition. Please refer to the emergency department record for history and examination from initial visit.? Physical exam by me shows patient under no acute distress at this time. Patient has a history of CHF on dialysis, missed Wednesday. Last blood pressure was 220/140 at 0600 hours. <Arik Molina MD - Last Filed: 03/29/25 08:47> Addendum Narrative: 0600: Care assumed from Dr. Aguirre, the previous shift emergency physician. Past medical, surgical, social and family history reviewed. Vitals and home medications reviewed. I will assume the care of the patient at this time, pending full work-up and final disposition. Please refer to the emergency department record for history and examination from initial visit.? Physical and patient alert awake in no distress, BiPAP on blood pressures in the 190s systolic at this time some bilateral rales present. Physical exam by me shows patient under no acute distress at this time. Blood pressure was down to 1 steadies now is up to 190. Dr Morales was called she will be admitted for fluid overload and dialysis and hospitalist was called they will be admitting. Note patient still on BiPAP tolerating well O2 sats are adequate. Chest x-ray shows fluid overload BNP is elevated
--- NOTE | 2025-03-29 09:14 | PD.RESCONSUL ---
HPI Data of Consult Consult date: 03/29/25 Primary Care Provider: Viky Wick PA-C Consult Narrative Reason for consult: ESRD- need for Dialysis History of present illness: Ms. Cecily Desouza is 64 yr female with PMH of ESRD on HD (//), hypertension, hypothyroidism, CHF presenting to ED due to SOB since last night. Patient stated that her last hemodialysis session was on Wednesday for 2 hours. Patient had to leave early due to appointment in [place] with her allergy physician Dr. Bailey. Last night she started experiencing orthopnea requiring her to stand up multiple times throughout the night. Otherwise patient denying any nausea, vomiting, chest pain, no changes in her urine output. Access site at right UE AV fistual for dialysis. Site is clean, full thrill, no bleeding. Kidney failure was due to hypertensive nephropathy. Since starting dialysis, patient has no longer been taking antihypertensives. However she was started on Coreg 3.[address] Bailey last month. BUN 65, creatinine 8.6, GFR 5, glucose 116, mildly elevated troponin 0.115 (elevation appears to be her baseline). In ED, vitals significant for hypertensive urgency with BP 211/114, RR 24, afebrile. Nephrology was consulted for need for hemodialysis setting of fluid overload status. cc:: cc: Review of Systems Review of Systems Narrative Review of Systems: CONSTITUTIONAL: Patient denies any fever, chills. Complaining of fatigue HEENT: Denies any visual disturbances or hearing problems. CARDIOVASCULAR: Patient denies any chest pain. C/o shortness of breath, swelling in the lower extremities. PULMONARY: Patient c/o shortness of breath, cough. GASTROINTESTINAL: Patient denies any abdominal pain, constipation, nausea, vomiting, diarrhea. GENITOURINARY: Patient denies any urinary symptoms of burning or frequency or hematuria, denies any form in the urine. SKIN: Denies any rash. MUSCULOSKELETAL: Denies any muscular skeletal problems of joint pains. + Gait imbalance NEUROLOGICAL: Denies any neurological problems of strokes, seizures or confusion. Denies any memory problems. PSYCHIATRIC: Denies any depression or anxiety. LYMPHATICS : No lymphadenopathy Past Medical History Past Medical History NEUROLOGIC: Negative Neurological Disorders, Cerebrovascular Accident, Transient Ischemic Attacks (TIA), Dementia, Alzheimer's Disease, Parkinson's Disease, Brain Tumor, Meningitis, Seizures, Epilepsy, Multiple Sclerosis, Cerebral Palsy, Amyotrophic Lateral Sclerosis (ALS/Nasreen Gehrig's), Guillain-[place] Syndrome, Spina Bifida, Paralysis, Peripheral Neuropathy, Lopez's Palsy, Subdural Hematoma, Migraine, Head Trauma, Spinal Cord Injury or Traumatic Brain Injury CARDIAC: Positive Cardiac Disorders, Hypercholesterolemia, Congestive Heart Failure, Edema, Hypertension and Hypotension; Negative Myocardial Infarction, Cardiac Arrhythmia, Atrial Fibrillation, Angina, Heart Murmur, Coronary Artery Disease, Atherosclerotic Heart Disease, Peripheral Vascular Disease, Aneurysm, Congenital Heart Disease, Valvular Heart Disease, Rheumatic Fever, Cardiomyopathy, Pericarditis, Cellulitis, Deep Vein Thrombosis or Varicose Veins RESPIRATORY: Negative Respiratory Disorders, Chronic Obstructive Pulmonary Disease (COPD), Asthma, Bronchitis, Emphysema, Pneumonia, Pulmonary Fibrosis, Cystic Fibrosis, Tuberculosis, Pulmonary Embolism, Pulmonary Edema or Sleep Apnea GASTROINTESTINAL: Positive Gastrointestinal Disorders, Gall Bladder Disease and Obesity; Negative Hepatitis, Cirrhosis, Pancreatitis, Celiac Disease, Gastrointestinal Bleed, Esophageal Varices, Newton's Esophagus, Colitis, Ulcerative Colitis, Diverticulitis, Diverticulosis, Ulcer, Colorectal Cancer, Irritable Bowel, Crohn's Disease, Obstructive Bowel, Hiatal Hernia, Hemorrhoids or Gastroesophageal Reflux Disease GENITOURINARY: Positive Genitourinary Disorders, Renal Disease and Dialysis (e sat); Negative Kidney Stones, Polycystic Kidney Disease, Neurogenic Bladder, Inguinal Hernia, Prostate Cancer or Benign Prostatic Hyperplasia REPRODUCTIVE: Positive Endometriosis and Previous Pregnancies; Negative Breast Cancer, Pelvic Inflammatory Disease, Testicular Cancer or Uterine Prolapse MUSCULOSKELETAL: Negative Musculoskeletal Disorders, Muscular Dystrophy, Myasthenia Gravis, Marfan's Syndrome, Bone Cancer, Arthritis, Rheumatoid Arthritis, Osteoporosis, Degenerative Disk Disease, Gout, Scoliosis, Carpal Tunnel Syndrome, Fibromyalgia, Fractures, Degenerative Joint Disease, Osteomyelitis or Poliovirus ENT: Negative Cataracts, Glaucoma, Blind, Retinal Detachment, Macular Degeneration, Ear Infection, Deafness, Head Trauma or Eye Prosthesis ENDOCRINE: Positive Endocrine Disorders and Hypothyroidism; Negative Diabetes Mellitus Type 1, Diabetes Mellitus Type 2, Hypoglycemia, Normal's Syndrome, [place]'s Disease, Hyperthyroidism, Parathyroid Disease, Pituitary Disease, Systemic Lupus Erythematosus, Syndrome of Inappropriate Antidiuretic Hormone (SIADH), Adrenal Disease or Graves' Disease HEMATOLOGIC: Negative Blood Disorders, Anemia, Leukemia, Hemophilia, Thalassemia, Sickle Cell Disease or Clotting Problems PSYCHO/SOCIAL: Positive Recreational Drug Use, Depression and Anxiety; Negative Psychiatric Problems, Schizophrenia, Bipolar Disorder, Behavior Problems, Self-Mutilation, Attention Deficit Disorder, Attention Deficit Hyperactivity Disorder, Depression, Post Traumatic Stress Disorder or Eating Disorder OTHER HISTORY: Positive Hospitalization and Chicken Pox; Negative Autoimmune Disease, Down Syndrome, Autism, Developmental Delay, Shingles, Falls, Blood Transfusions, Anesthesia Reactions, Organ Transplant, Chemotherapy, Radiation Therapy, MRSA, VRSA, Vancomycin-Resistant Enterococci, Human Immunodeficiency Virus (HIV), Measles, Mumps, Rubella (Albanian Measles), Pertussis, Clostridium Difficile, Cancer, Breast Cancer, Cervical Cancer, Colorectal Cancer, Lung Cancer, Ovarian Cancer, Prostate Cancer or Testicular Cancer Family History FAMILY HISTORY: Positive Family Cardiac Disorders, Family Gastrointestinal Problems and Family Surgery; Negative Family Psychiatric Problems, Family Respiratory Disorders, Family Cancer or Family Anesthesia Reaction Surgical History SURGICAL: Positive Abdominal Surgery, Hysterectomy and Tubal Ligation; Negative Cardiac Surgery, Open Heart Surgery, Coronary Artery Bypass Graft, Valve Replacement, Vascular Surgery, Coronary Stent, Cardiac Catheterization, Pacemaker, Angiogram, Auto Implanted Cardiovert Defib, Carotid Endarterectomy, Endocrine Surgery, Thyroidectomy, Ear Surgery, Tympanostomy Tube, Eye Surgery, Nose Surgery, Oral Surgery, Tonsillectomy, Adenoidectomy, Gastric Bypass Surgery, Gastrostomy, Bowel Surgery, Nephrectomy, Transurethral Resection, Joint Replacement, Amputation, Open Reduction Internal Fixation, Arthroscopy, Neurologic Surgery, Brain Shunt, Mastectomy, Lumpectomy, Section, Vasectomy or Organ Transplant Social History SMOKING STATUS: Never smoker SECOND HAND EXPOSURE: No SUBSTANCE USE: does not use Exam Vital Signs Temp Pulse Resp BP Pulse Ox O2 Del Method O2 Flow Rate 98.6 F 73 16 179/89 H 99 BiPAP 2 03/29/25 07:28 03/29/25 07:28 03/29/25 07:28 03/29/25 07:28 03/29/25 07:28 03/29/25 07:28 03/29/25 05:05 FiO2 30 03/29/25 06:20 Narrative Exam General: Alert and oriented x3. No acute distress, cooperative, stable, on BiPAP HEENT: NCAT, No JVD noted. Pupils are equal and reactive to light bilaterally Cardiovascular: Normal S1 and S2. Regular rate and rhythm. Respiratory: Lungs are clear to auscultation bilaterally. No wheezing or crackles heard. Abdomen: Soft, nontender, not distended, normal bowel sounds. Skin: Warm to touch, dry, no rashes note, Access site at right UE AV fistual for dialysis. Site is clean, strong palapable thrill, no bleeding. Musculoskeletal: No gross injuries. Able to move all 4 extremities. No pitting edema Neuro: Alert and oriented x3. No focal neuro deficits. Psych: Normal affect and mood Results Labs 03/29/25 05:22 03/29/25 05:22 Labs: Short CBC 03/29/25 Range/Units 05:22 WBC 6.4 (3.6-11.0) Thou/mm3 Hgb 11.4 L (12.0-16.0) g/dL Hct 35.2 L (36.0-46.0) % Plt Count 132 L (140-440) Thou/mm3 BMP 03/29/25 05:22 Sodium 138 Potassium 5.2 H Chloride 100 Carbon Dioxide 26.8 BUN 65 H Creatinine 8.6 H* Glucose 116 H Calcium 9.4 Cardiac Enzymes 03/29/25 Range/Units 05:22 Troponin I 0.115 H* (0.0-0.045) ng/mL Liver Function 03/29/25 Range/Units 05:22 Total Bilirubin 0.3 (0.3-1.2) mg/dL AST 14 (0-34) U/L ALT < 7 L (10-49) U/L Alkaline Phosphatase 81 (46-116) U/L Albumin 4.4 (3.4-4.8) gm/dL Quality Measures Quality Measures none Medications Home Medications and Allergies Home Medications ?Medication ?Instructions ?Recorded ?Confirmed ?Type levothyroxine 75 mcg tablet 75 mcg PO DAILY 01/09/24 03/29/25 History sevelamer carbonate 800 mg tablet 1,600 mg PO TIDWMEAL 01/09/24 03/29/25 History acetaminophen 650 mg 650 mg PO Q8H PRN pain 12/06/24 03/29/25 History tablet,extended release aspirin 81 mg chewable tablet 1 tab PO DAILY 12/06/24 03/29/25 History cinacalcet 30 mg tablet 30 mg PO .COMPLEX 12/06/24 03/29/25 History midodrine 5 mg tablet 5 mg PO DAILY 12/06/24 03/29/25 History atorvastatin 10 mg tablet 10 mg PO HS 03/29/25 03/29/25 History carvedilol 3.125 mg tablet 3.125 mg PO Q12H 03/29/25 03/29/25 History furosemide 40 mg tablet 40 mg PO DAILY 03/29/25 03/29/25 History sertraline 50 mg tablet 50 mg PO Q24H 03/29/25 03/29/25 History Allergies Allergy/AdvReac Type Severity Reaction Status Date / Time peach Allergy Severe SKIN RASH Verified 01/06/25 10:22 Visit Medications Discontinued Medications Hydralazine HCl (Hydralazine Inj 20 Mg/Ml Vial) 10 mg IVP X1 ONE Stop: 03/29/25 05:14 Last Admin: 03/29/25 05:42 Dose: 10 mg Morphine Sulfate (Morphine Sulf Inj 10 Mg/Ml Vial) 4 mg IVP X1 ONE Stop: 03/29/25 05:14 Last Admin: 03/29/25 06:22 Dose: 4 mg Nitroglycerin (Nitroglycerin Oint 2% 1 Inch Packet) 2 inch TOP X1 ONE Stop: 03/29/25 05:14 Last Admin: 03/29/25 05:38 Dose: 2 inch Assessment & Plan Plan Cecily Desouza is 64 yr female with PMH of ESRD on HD (/), hypertension, hypothyroidism, CHF presenting to ED due to SOB since last night. Patient stated that her last hemodialysis session was on Wednesday for 2 hours. Patient had to leave early due to appointment in [place] with her allergy physician Dr. Bailey. Last night she started experiencing orthopnea requiring her to stand up multiple times throughout the night. Nephrology was consulted for resuming hemodialysis setting of fluid overload status. #ESRD on dialysis (/) #Hypertensive nephropathy # Volume overload status Likely secondary to short dialysis session on this past Wednesday. She also does have history of CHF. While in ED, she was started on BiPAP. Access site through right AV fistula. Versus orthopnea since last night. - Continue inpatient dialysis as scheduled -Avoid nephrotoxic medications and renally dose medications # Chronic anemia, normocytic Likely due to anemia due to kidney disease -Patient was found to have hemoglobin of 10-11 since 2020 - Continue to monitor #Hypertension Per patient, she has not been taking any antihypertensive medications since past couple months. She is on midodrine 5 mg daily and recently started on Coreg 3.125 mg BID per her allergy physician Dr. Bailey. Patient just had angiogram done on Wednesday with results still pending. - Midodrine 5 mg p.o. daily Prn - Monitor BP for Coreg administration The patient's management plan was discussed with my attending physician Dr. Morales. Darlene Andino, PGY-2 Attending Provider Attestation/Addendum Patient seen and examined with resident physician Dr. Andino. Note reviewed, agree with findings and recommendations with few changes made. Patient has hypoxic respiratory failure secondary to fluid overload. Patient currently seen on dialysis. Tolerating dialysis without any problems. Hemodialysis for 3 hours, 2K, ultrafiltration 2-3 L, Epogen 6000, no heparin ordered. Plan of care discussed with the dialysis nurse. Please see dialysis flowsheet for further details. Thank you Sanchez for allowing me to participate in the care of Ms. Desouza
--- NOTE | 2025-03-29 09:15 | PD.RESHP ---
Documentation for date of: 03/29/25 HPI History of Present Illness History of present illness: HPI is limited at this time as patient is current on BiPAP Cecily is a 64 y/o female with PMHx of ESRD (on HD Wednesday, Dr Morales), hypertension, hypothyroidism (on Synthroid 75 mcg),? HFpEF comes in for an evaluation of shortness of breath that had started the night before. Patient reports that her last hemodialysis session was on Wednesday and she did not complete the full treatment because she had to go to her cardiology appointment. She says that she is unsure how much fluid they took off, however she says that hemodialysis session lasted about 2 hours. She says her kidney doctor is Dr. Morales. She also says her court commissioner Dr. Bailey. She does endorse that she has had shortness of breath, worse while laying down. She says she has had similar symptoms to this before. She denies any recent travel or sick contacts. She did says she did have some chest discomfort, however denies any nausea, vomiting, diarrhea, headache, numbness, tingling. She does endorse taking her medicines as prescribed. She does say that she has a AV fistula on her right arm. She denies a history of diabetes as well and she says that she has had a longstanding history of hypertension. She denies a cough or fever at this time. ED Course: Patient arrived to the ED with a temperature of 97.8, heart rate 87, respiratory rate 24, blood pressure of 211/119, saturating 100% on room air. Patient was worked up was found to have a sodium 138, potassium 5.2, bicarb 27, BUN/creatinine of 65 and 8.6 respectively, anion gap of 11, blood glucose of 116, white count 6.4, hemoglobin 11.4, calcium 9.4, magnesium 2.6, T. bili 0.3, BNP 1508, troponin 0.115. Chest x-ray was done which showed mild to moderate CHF. EKG was done and showed a heart rate of 79, low voltage QRS, and sinus rhythm. Patient was given nitroglycerin patch x 1, hydralazine 10 mg x 1, morphine 4 mg x 1. Patient was also put on BiPAP, however it does not seem that patient was hypoxic upon chart review, however patient did complain of having trouble breathing. Medicine was consulted and patient was admitted to the floors. PMHx: As above Surgeries: R AV fistula Meds: Sevelamer 800 TID, Lasix 40 mg qday, Coreg 3.125 BID, Lipitor 10 mg Hs, Sensepar 30 mg, Zoloft 50 mg, Midodrine 10 mg LISY, Synthroid 75 mcg, ASA 81 Allergies:Faulk allergy Family Hx:Limited family hx per patient Social Hx:Never has been a smoker, no recent travler, denies ever being a heavy drinker, no hx of oral or IV drug use Review of Systems Review of Systems Narrative Review of Systems: ROS is limited at this time as patient is on BiPAP, however some systems reviewed and is otherwise negative as stated directly in HPI. Exam Vital Signs Temp Pulse Resp BP Pulse Ox O2 Del Method O2 Flow Rate 98.6 F 73 16 179/89 H 99 BiPAP 2 03/29/25 07:28 03/29/25 07:28 03/29/25 07:28 03/29/25 07:28 03/29/25 07:28 03/29/25 07:28 03/29/25 05:05 FiO2 30 03/29/25 06:20 Narrative Exam General: AAOx3, NAD, obese female, on BiPAP HEENT: Unable to visualize tongue at this time, conjunctiva clear, EOMI, PERRLA, Cardiovascular: S1, S2, radial pulses +2 bilat, RRR, ejection systolic murmur radiating to the carotid likely , AV fistula present on R arm with palpable thrill Pulmonary: On BiPAP, some crackles heard, no cough GI: No tenderness to light or deep palpitation, no guarding, rigidity, rebound tenderness or distension Extremities: No presence of trace or pitting edema in lower extremities bilaterally, dorsalis pedis pulses +2 bilaterally, Neuro: AAOx3, limited neurologic exam as patient is currently on BiPAP Psych: Able to cooperate Results: Labs 03/30/25 05:37 03/30/25 05:37 Labs: Short CBC 03/29/25 Range/Units 05:22 WBC 6.4 (3.6-11.0) Thou/mm3 Hgb 11.4 L (12.0-16.0) g/dL Hct 35.2 L (36.0-46.0) % Plt Count 132 L (140-440) Thou/mm3 BMP 03/29/25 05:22 Sodium 138 Potassium 5.2 H Chloride 100 Carbon Dioxide 26.8 BUN 65 H Creatinine 8.6 H* Glucose 116 H Calcium 9.4 Cardiac Enzymes 03/29/25 Range/Units 05:22 Troponin I 0.115 H* (0.0-0.045) ng/mL Liver Function 03/29/25 Range/Units 05:22 Total Bilirubin 0.3 (0.3-1.2) mg/dL AST 14 (0-34) U/L ALT < 7 L (10-49) U/L Alkaline Phosphatase 81 (46-116) U/L Albumin 4.4 (3.4-4.8) gm/dL Quality Measures Quality Measures none Medications Home Medications and Allergies Home Medications ?Medication ?Instructions ?Recorded ?Confirmed ?Type levothyroxine 75 mcg tablet 75 mcg PO DAILY 01/09/24 03/29/25 History sevelamer carbonate 800 mg tablet 1,600 mg PO TIDWMEAL 01/09/24 03/29/25 History acetaminophen 650 mg 650 mg PO Q8H PRN pain 12/06/24 03/29/25 History tablet,extended release aspirin 81 mg chewable tablet 1 tab PO DAILY 12/06/24 03/29/25 History cinacalcet 30 mg tablet 30 mg PO .COMPLEX 12/06/24 03/29/25 History midodrine 5 mg tablet 5 mg PO DAILY 12/06/24 03/29/25 History atorvastatin 10 mg tablet 10 mg PO HS 03/29/25 03/29/25 History carvedilol 3.125 mg tablet 3.125 mg PO Q12H 03/29/25 03/29/25 History furosemide 40 mg tablet 40 mg PO DAILY 03/29/25 03/29/25 History sertraline 50 mg tablet 50 mg PO Q24H 03/29/25 03/29/25 History Allergies Allergy/AdvReac Type Severity Reaction Status Date / Time peach Allergy Severe SKIN RASH Verified 01/06/25 10:22 Visit Medications Discontinued Medications Hydralazine HCl (Hydralazine Inj 20 Mg/Ml Vial) 10 mg IVP X1 ONE Stop: 03/29/25 05:14 Last Admin: 03/29/25 05:42 Dose: 10 mg Morphine Sulfate (Morphine Sulf Inj 10 Mg/Ml Vial) 4 mg IVP X1 ONE Stop: 03/29/25 05:14 Last Admin: 03/29/25 06:22 Dose: 4 mg Nitroglycerin (Nitroglycerin Oint 2% 1 Inch Packet) 2 inch TOP X1 ONE Stop: 03/29/25 05:14 Last Admin: 03/29/25 05:38 Dose: 2 inch Assessment & Plan Plan Assessment Cecily is a 64 y/o female with PMHx of ESRD (on HD Wednesday, Dr Morales), hypertension, HLD, ?CAD, hypothyroidism (on Synthroid 75 mcg),? HFpEF, depression who is admitted for acute on chronic hypoxic respiratory failure secondary to fluid overload. #Acute on chronic hypoxic respiratory failure secondary to #Fluid overload #ESRD, on HD () Patient recently missed dialysis session and her last session was on Wednesday Chest x-ray shows mild to moderate CHF at this time, likely related to fluid overload Unsure why patient was on BiPAP as patient does not seem to be a chronic CO2 retainer Plan: ? Nephrology on consult, appreciate recs ? Continue with hemodialysis at this time ? Oxygen as needed, wean as tolerated ? DuoNeb [id number] ? Renally dose medicines ? Avoid nephrotoxic agents #Electrolyte abnormalities, related to ESRD #Hyperkalemia #Prerenal Azotemia Potassium 5.2, pt to get HD now Plan: ? Continue with HD ? Continue with Sevelamer 800 mg by mouth 3 times daily ? Trend electrolytes #Elevated troponin #Hypertensive emergency, improving Troponin elevated at 0.115, pt did have some chest comfort, will trend, however this could be related to NSTEMI type II SBP on admission 211 Plan: ? Do not correct systolic blood pressure more than 25% within the first 24 hours ? Trend troponin q6h #HFpEF Echo in 2003 shows ejection fraction 55%, normal LV BNP 1508, this could be elevated due to ESRD Pt appears to be maintaing good oxygen, no JVD noticed or LE edema Will treat above as well Plan: ? Lasix 20 mg IV daily ? Strict I's and O's ? Fluid restriction 1500 mL ? Telemetry #? CAD #Hypertension #Hyperlipidemia Chronic Plan: ? Holding blood pressure medicines as blood pressures soft at this point ? Resumed home Lipitor 10 mg at bedtime ? Resumed home aspirin ? Resumed home Coreg 3.125 mg twice daily ? Cardiac stratification #History of hypothyroidism Chronic Plan: ? Resumed home Synthroid 75 mcg ? Follow-up TSH #Normocytic anemia #? Anemia of chronic disease #Thrombocytopenia Hgb 11.3 Anemia seems to be chronically low, likely related to ESRD No iron studies or ferritin on file No Blood smear on file either Platelets chronically low, currently 132, could be related to ESRD and chronic elevations in BUN Plan: ? Trend CBC #History of depression Chronic Plan: ? Resume home Zoloft 50 mg #Health Maintenance Disposition: Telemetry DVT prophylaxis: Heparin q12H GI prophylaxis: Protonix Diet: Nurse swallow screen, and if pt passes Renal Diet CODE STATUS: Full Patient seen and care discussed with my attending physician, Dr. Lacy Nogueira, PGY-2 Attending Provider Attestation/Addendum I have examined the patient, reviewed labs and imaging findings, discussed the case with the resident(s), and reviewed entered orders. I agree with the plan of care as outlined in this note, with these additional summaries/recommendations: After examination of the patient and review of the clinical data, I feel that this patient needs admission to the hospital for further treatment and evaluation. Patient is a 63-year-old female with medical history of ESRD TTHSa, Primary Hypertension, HFpEF, anxiety, hypothyroidism, and hyperlipidemia presents to [facility] emergency department on 03/29/2025 with chief complaint of shortness of breath and dyspnea. Patient seen at bedside. She reports she did not fully complete her last dialysis session on Wednesday due to a prior commitment and has had progressively worsening shortness of breath and dyspnea. Patient's actuarial associate was contacted from the emergency room who recommended admission for fluid overload and missed hemodialysis. Given patient's shortness of breath and fluid overload she was originally placed on BiPAP although appears very comfortable and we will discontinue. Patient also found to have elevated troponins most likely secondary to demand ischemia and decreased clearance from end-stage renal disease. We will trend troponin every 8 hours or until downtrend. Patient follows Dr. Bailey cardiology and recently had Coreg added to patient's regimen. Continue home aspirin and acetaminophen. Continue midodrine as needed if hypotension develops. Continue home levothyroxine. Patient updated on the plan and in agreement. All questions answered to satisfaction. Please see residents note for additional details and management. Dr. Lacy MD
[2025-03-29] MEDS: SERTRALINE HCL 25 MG TABLET 50 MG PO (09:36)
--- NOTE | 2025-03-29 09:58 | PC.CC ---
Patient is a 64 year-old female who presents to the hospital for fluid overload. LUKEWYessenia made [id number] contact with patient. ASW introduced self, role, and reason for visit. Patient appeared alert and oriented to self, location, and situation. Patient was pleasant and engaged in initial assessment. Patient reports she is living at [facility] and has been living there for 7 months. Patient reports her medical decision maker in the event that she is unable to make her own medical decisions is her niece Alejandra Desouza . Patient reports she ambulates independently and is able to complete her ALDs. Patient reports she requires 2L of oxygen continuously and receives dialysis Wednesday, , and Wednesday at 6:10am. Patient's primary provider is Viky Wick and she uses [facility] for prescription medications. Upon discharge the patient plans to return back to the [facility]. technical services specialist to follow-up with any discharge needs.
[2025-03-29] MEDS: EPOETIN ALFA-EPBX INJ 10,000 UNIT/ML VIAL (ESRD) 10000 UNIT SC (14:15)
[2025-03-29 14:41] LABS: Troponin I 0.116 ng/mL (0.0-0.045)
[2025-03-29] MEDS: SEVELAMER CARBONATE 800 MG TABLET PO ×2 (15:09→20:33)
[2025-03-29] MEDS: ALBUTEROL/IPRATROPIUM (Duoneb) RT SOL 3 ML NEBU INH (18:24)
[2025-03-29] MEDS: ATORVASTATIN CALCIUM 10 MG TABLET PO (20:17)
[2025-03-29] MEDS: HEPARIN SOD INJ 5000 UNIT/ML VIAL SC (20:18)
[2025-03-29 21:10] LABS: Troponin I 0.125 ng/mL (0.0-0.045)
[2025-03-30] VITALS (9 sets, daily range): BP systolic 125–143; BP diastolic 66–72; PULSE 61–81; RESP 13–18; TEMP 36.1–37.1; O2SAT 92–98
[2025-03-30 03:17] LABS: Troponin I 0.124 ng/mL (0.0-0.045)
[2025-03-30] MEDS: SEVELAMER CARBONATE 800 MG TABLET PO (05:51)
[2025-03-30] MEDS: LEVOTHYROXINE SODIUM 25 MCG TABLET 75 MCG PO (05:51)
[2025-03-30 06:10] LABS: Basophils # (Auto) 0.0 Thou/mm3 (0.0-0.2); Basophils % (Auto) 0 % (0-2.5); Eosinophils # (Auto) 0.1 Thou/mm3 (0.0-0.5); Eosinophils % (Auto) 3 % (0-10); Hematocrit 30.9 % (36.0-46.0); Hemoglobin 10.0 g/dL (12.0-16.0); Immature Granulocytes Auto 0.01 Thou/mm3 (0.00-0.00); Lymphocytes # (Auto) 0.8 Thou/mm3 (1.0-4.8); Lymphocytes % (Auto) 20 % (10-50); Mean Corpuscular HGB Conc 32.4 g/dl (31.0-37.0); Mean Corpuscular Hemoglobin 29.4 pg (25.0-35.0); Mean Corpuscular Volume 91 fL (80-100); Monocytes # (Auto) 0.4 Thou/mm3 (0.0-0.8); Monocytes % (Auto) 10 % (0-12); Neutrophils # (Auto) 2.6 Thou/mm3 (1.8-7.7); Neutrophils % (Auto) 66 % (37-80); Nucleated Red Blood Cell # 0.00 Thou/mm3 (0.00-0.00); Nucleated Red Blood Cell % 0 /100 WBC (0); Platelet Count 94 Thou/mm3 (140-440); RDW Standard Deviation 45.1 fL (36.4-46.3); Red Blood Count 3.40 Miln/mm3 (4.00-5.20); White Blood Count 3.9 Thou/mm3 (3.6-11.0)
[2025-03-30 06:23] LABS: INR 1.1 (0.9-1.3); Partial Thromboplastin Time 35.9 Seconds (22.0-36.0); Prothrombin Time 12.1 Seconds (9.0-12.2)
[2025-03-30] MEDS: ALBUTEROL/IPRATROPIUM (Duoneb) RT SOL 3 ML NEBU INH (06:34)
[2025-03-30 06:50] LABS: Alanine Aminotransferase < 7 U/L (10-49); Albumin, Serum 3.9 gm/dL (3.4-4.8); Albumin/Globulin Ratio 1.6 (1.2-2.2); Alkaline Phosphatase 58 U/L (46-116); Anion Gap 10 (7-16); Aspartate Amino Transferase 16 U/L (0-34); BUN/Creatinine Ratio 6 Ratio (12-20); Bilirubin,Total 0.4 mg/dL (0.3-1.2); Blood Urea Nitrogen 38 mg/dL (9-23); Calcium 9.2 mg/dL (8.3-10.6); Calcium (Corrected) 9.3 mg/dL (8.5-10.1); Carbon Dioxide 29.3 mMol/L (20.0-31.0); Cardiac Risk Estimate 2.2 RATIO (3.7-5.6); Chloride 98 mMol/L (98-107); Cholesterol 76 mg/dL (132-200); Creatinine (Component) 6.6 mg/dL (0.6-1.3); Estimated Creatinine Clearance 9.0 mL/min (>60); Globulin 2.4 gm/dL (2.3-3.5); Glucose 91 mg/dL (74-106); HDL Cholesterol 34 mg/dL (40-60); LDL Cholesterol,Calculated 20 mg/dL (0-130); Magnesium 1.8 mg/dL (1.6-2.6); Osmolality,Calculated 282 (275-295); Phosphorous 5.7 mg/dL (2.4-5.1); Potassium 4.6 mMol/L (3.4-5.1); Sodium 137 mMol/L (136-145); Thyroid Stimulating Hormone 3.84 uIU/mL (0.55-4.78); Total Protein 6.3 gm/dL (5.7-8.2); Triglycerides 109 mg/dL (30-150); eGFR 7 See Note
[2025-03-30 07:04] LABS: Glucose Estimated Average 82 mg/dL (80-131); Hemoglobin A1C 4.5 % Hgb (4.8-6.0)
[2025-03-30] MEDS: FUROSEMIDE INJ 10 MG/ML VIAL 2 ML 20 MG IVP (08:51)
[2025-03-30] MEDS: ASPIRIN EC 81 MG TABEC PO (08:52)
[2025-03-30] MEDS: SERTRALINE HCL 25 MG TABLET 50 MG PO (08:52)
--- NOTE | 2025-03-30 09:57 | ESDS_ITS ---
Planned Discharge Date 03/30/25 DS: Providers Provider Date of admission: 03/29/25 09:03 Primary care physician: Viky Wick PA-C Admitting Provider: Sanchez House MD Attending Provider on Admission: Sanchez House MD Consults: 03/29/25 09:14 Consult to Nephrology Stat Comment: Consulting Provider: Luz Morales Attending Provider on DC: Sanchez House MD Discharging Provider: Sanchez House MD DS: Diagnosis Problem List Completed Was Problem List Reviewed/Reconciled?: Yes Hospital Course Hospital Course Hospital course: Cecily is a 64 y/o female with PMHx of ESRD (on HD Wednesday, Dr Morales), hypertension, hypothyroidism (on Synthroid 75 mcg),? HFpEF who was admitted for Acute on chronic hypoxic respiratory failure 2/2 fluid overload, requiring HD as she missed previous session. Patient arrived to the ED with a temperature of 97.8, heart rate 87, respiratory rate 24, blood pressure of 211/119, saturating 100% on room air. Patient was worked up was found to have a sodium 138, potassium 5.2, bicarb 27, BUN/creatinine of 65 and 8.6 respectively, anion gap of 11, blood glucose of 116, white count 6.4, hemoglobin 11.4, calcium 9.4, magnesium 2.6, T. bili 0.3, BNP 1508, troponin 0.115. Chest x-ray was done which showed mild to moderate CHF. EKG was done and showed a heart rate of 79, low voltage QRS, and sinus rhythm. Patient was given nitroglycerin patch x 1, hydralazine 10 mg x 1, morphine 4 mg x 1. Patient was also put on BiPAP, however it does not seem that patient was hypoxic upon chart review, however patient did complain of having trouble breathing. Medicine was consulted and patient was admitted to the floors. While on the floors, pt had HD performed, tolerated it well and had 1.8 L removed. Her troponins had peaked at 0.125 and downtrended, likely related to demand ischemia. Her blood pressure improved, as Hypertensive emergency resolved. Pt uses to 2L of oxygen sometimes at home and upon discharge she was using less than two liters. Her Platelets were 94 upon d/c, likely related to uremia and this is chronically low. Pt was then discharged with the following discharge instructions. Discharge Instructions: Follow up with PCP within 1-2 weeks Follow up with your Supervisor [employer], Dr. Morales, and continue HD T/Th/S Take your medicines as prescribed Return to ER if symptoms worsen or return Recommend to do a complete blood count (CBC) to follow up on your low platelets Problem List: #Acute on chronic hypoxic respiratory failure secondary to #Fluid overload #ESRD, on HD (T/Th/S) #Electrolyte abnormalities, related to ESRD #Hyperkalemia, resolved #Prerenal Azotemia #NSTEMI type II, likely related to demand ischemia #Hypertensive emergency, resoslved #HFpEF #? CAD #Hypertension #Hyperlipidemia #History of hypothyroidism #Normocytic anemia #? Anemia of chronic disease #Thrombocytopenia #History of depression Discharge summary was reviewed with my attending Dr. Lacy Nogueira, PGY-2 Time Spent with Patient Time attestation: Total time spent providing and/or coordinating discharge services: Time spent: Greater than 30 minutes Exam Vital Signs Temp Pulse Resp BP Pulse Ox O2 Del Method O2 Flow Rate 97.6 F 81 18 134/70 H 96 Nasal Cannula 1 03/30/25 08:00 03/30/25 08:52 03/30/25 08:00 03/30/25 08:52 03/30/25 08:00 03/30/25 08:00 03/30/25 08:00 FiO2 30 03/29/25 13:10 Narrative Exam General: AAOx3, NAD, obese female, HEENT: Unable to visualize tongue at this time, conjunctiva clear, EOMI, PERRLA, Cardiovascular: S1, S2, radial pulses +2 bilat, RRR, ejection systolic murmur radiating to the carotid likely , AV fistula present on R arm with palpable thrill Pulmonary: On BiPAP, some crackles heard, no cough GI: No tenderness to light or deep palpitation, no guarding, rigidity, rebound tenderness or distension Extremities: No presence of trace or pitting edema in lower extremities bilaterally, dorsalis pedis pulses +2 bilaterally, Neuro: AAOx3, limited neurologic exam as patient is currently on BiPAP Psych: Able to cooperate Discharge Plan Plan Patient Disposition: Xfer Other Facility Pt Being Transferred to: Other-Specify in comment Disposition Comment: [facility] Patient condition on transfer: Stable Care Plan Goals: Discharge Instructions: Follow up with PCP within 1-2 weeks Follow up with your Supervisor [employer], Dr. Morales, and continue HD T//S Take your medicines as prescribed Return to ER if symptoms worsen or return Prescriptions/Referrals Prescriptions/Med Rec: Continued levothyroxine 75 mcg tablet 75 mcg PO DAILY sevelamer carbonate 800 mg tablet 1,600 mg PO TIDWMEAL aspirin 81 mg tablet,chewable 1 tab PO DAILY acetaminophen 650 mg tablet extended release 650 mg PO Q8H PRN (Reason: pain) midodrine 5 mg tablet 5 mg PO DAILY cinacalcet 30 mg tablet 30 mg PO .COMPLEX Rx Instructions: 30 mg orally 3x a week, mon-wed-fri; furosemide 40 mg tablet 40 mg PO DAILY carvedilol 3.125 mg tablet 3.125 mg PO Q12H sertraline 50 mg tablet 50 mg PO Q24H atorvastatin 10 mg tablet 10 mg PO HS Referrals: Viky Wick PA-C [Primary Care Provider] - Patient/Caregiver Discharge Instructions Discharge Activity: activity as tolerated Education Materials: Controlling High Blood Pressure, Acute Kidney Failure Dc Print Language: [place] Stand Alone Forms: Devi Award Info., Patient Portal Info Letter Discharge Order Discharge Orders: Discharge (Routine); Ordered 03/30/25 Ordered By: Sharri Nogueira Quality Discharge Quality Measures VTE prophylaxis (SCDs) Attestestation MD Attestation I have examined the patient, reviewed labs and imaging findings, discussed the case with the resident(s), and reviewed entered orders. I agree with the plan of care as outlined in this note. Time Spent: [address] Lacy MD
--- NOTE | 2025-03-30 10:23 | PD.RESPRO ---
Documentation for date of: 03/30/25 Subjective Subjective Interval history: Ms. Cecily Desouza is 64 yr female with PMH of ESRD on HD (/), hypertension, hypothyroidism, CHF presenting to ED due to SOB since last night. Patient stated that her last hemodialysis session was on Wednesday for 2 hours. Patient had to leave early due to appointment in [place] with her administration professional Dr. Bailey. Last night she started experiencing orthopnea requiring her to stand up multiple times throughout the night. Otherwise patient denying any nausea, vomiting, chest pain, no changes in her urine output. Access site at right UE AV fistual for dialysis. Site is clean, full thrill, no bleeding. Kidney failure was due to hypertensive nephropathy. Since starting dialysis, patient has no longer been taking antihypertensives. However she was started on Coreg 3.[address] Bailey last month. BUN 65, creatinine 8.6, GFR 5, glucose 116, mildly elevated troponin 0.115 (elevation appears to be her baseline). In ED, vitals significant for hypertensive urgency with BP 211/114, RR 24, afebrile. 03/30/2025 Today patient was seen and examined at bedside. No acute overnight events. Patient states she is feeling more like herself after having dialysis 03/29. Denies having any complaints or concerns. Patient denies headache, chest pain, shortness of breath, abdominal pain. Exam Vital Signs Temp Pulse Resp BP Pulse Ox O2 Del Method O2 Flow Rate 97.6 F 81 18 134/70 H 96 Nasal Cannula 1 03/30/25 08:00 03/30/25 08:52 03/30/25 08:00 03/30/25 08:52 03/30/25 08:00 03/30/25 08:00 03/30/25 08:00 FiO2 30 03/29/25 13:10 Narrative Exam General: Alert and oriented x3. No acute distress HEENT: NCAT, No JVD noted. Pupils are equal and reactive to light bilaterally Cardiovascular: Normal S1 and S2. Regular rate and rhythm. Respiratory: Lungs are clear to auscultation bilaterally. No wheezing or crackles heard. Abdomen: Soft, nontender, not distended, normal bowel sounds. Skin: Warm to touch, dry, no rashes note, Access site at right UE AV fistual for dialysis. Site is clean, strong palapable thrill, no bleeding. Musculoskeletal: No gross injuries. Able to move all 4 extremities. No pitting edema Neuro: Alert and oriented x3. No focal neuro deficits. Psych: Normal affect and mood Objective Labs 03/30/25 05:37 03/30/25 05:37 Labs: Laboratory Results - last 24 hr 03/29/25 03/29/25 03/30/25 13:35 19:48 01:54 WBC RBC Hgb Hct MCV MCH MCHC RDW Std Deviation Plt Count Neut % (Auto) Lymph % (Auto) [place] % (Auto) Eos % (Auto) Baso % (Auto) Neut # (Auto) Lymph # (Auto) [place] # (Auto) Eos # (Auto) Baso # (Auto) Immature Gran # (Auto) Absolute Nucleated RBC Immature Gran % Nucleated RBC % PT INR APTT Sodium Potassium Chloride Carbon Dioxide Anion Gap BUN Creatinine Estim Creat Clear Calc eGFR BUN/Creatinine Ratio Glucose Estimated Ave Glu mg/dL Hemoglobin A1c Calculated Osmolality Calcium Corrected Calcium Phosphorus Magnesium Total Bilirubin AST ALT Alkaline Phosphatase Troponin I 0.116 H* 0.125 H* 0.124 H* Total Protein Albumin Globulin Albumin/Globulin Ratio Triglycerides Cholesterol LDL Cholesterol, Calc HDL Cholesterol Cholesterol/HDL Ratio TSH 03/30/25 05:37 WBC 3.9 RBC 3.40 L Hgb 10.0 L Hct 30.9 L MCV 91 MCH 29.4 MCHC 32.4 RDW Std Deviation 45.1 Plt Count 94 L D Neut % (Auto) 66 Lymph % (Auto) 20 [place] % (Auto) 10 Eos % (Auto) 3 Baso % (Auto) 0 Neut # (Auto) 2.6 Lymph # (Auto) 0.8 L [place] # (Auto) 0.4 Eos # (Auto) 0.1 Baso # (Auto) 0.0 Immature Gran # (Auto) 0.01 H Absolute Nucleated RBC 0.00 Immature Gran % 0 Nucleated RBC % 0 PT 12.1 INR 1.1 APTT 35.9 Sodium 137 Potassium 4.6 D Chloride 98 Carbon Dioxide 29.3 Anion Gap 10 BUN 38 H Creatinine 6.6 H* D Estim Creat Clear Calc 9.0 L eGFR 7 L* BUN/Creatinine Ratio 6 L Glucose [address] Glu mg/dL 82 Hemoglobin A1c 4.5 L Calculated Osmolality 282 Calcium 9.2 Corrected Calcium 9.3 Phosphorus 5.7 H Magnesium 1.8 Total Bilirubin 0.4 AST 16 ALT < 7 L Alkaline Phosphatase 58 D Troponin I Total Protein 6.3 Albumin 3.9 D Globulin 2.4 Albumin/Globulin Ratio 1.6 Triglycerides 109 Cholesterol 76 L LDL Cholesterol, Calc 20 HDL Cholesterol 34 L Cholesterol/HDL Ratio 2.2 L TSH 3.84 Quality Measures Quality Measures VTE prophylaxis (SCDs) Assessment & Plan Assessment Current Active Medications: Generic Name Dose Route Start Last Admin Trade Name Freq PRN Reason Stop Dose Admin Acetaminophen 650 mg 03/29/25 09:02 Acetaminophen 325 Mg Tablet PO 04/28/25 09:01 Q6H PRN Fever >100 or pain 1-3 Albuterol/Ipratropium 3 ml 03/29/25 19:00 03/30/25 06:34 Albuterol/Ipratropium (Duoneb) Rt Ivonne 3 Ml Nebu INH 04/28/25 18:59 3 ml [id number] LISY Administration Aspirin 81 mg 03/30/25 09:00 03/30/25 08:52 Aspirin Ec 81 Mg Tabec PO 04/29/25 08:59 81 mg QDAY LISY Administration Atorvastatin Calcium 10 mg 03/29/25 21:00 03/29/25 20:17 Atorvastatin Calcium 10 Mg Tablet PO 04/28/25 20:59 10 mg HS LISY Administration Carvedilol 3.125 mg 03/29/25 21:00 03/30/25 08:52 Carvedilol 3.125 Mg Tablet PO 04/28/25 20:59 3.125 mg BID LISY Administration Docusate Sodium 100 mg 03/29/25 09:05 Docusate Sod 100 Mg Capsule PO 04/28/25 09:04 QDAY PRN CONSTIPATION Protocol Furosemide 20 mg 03/30/25 09:00 03/30/25 08:51 Furosemide Inj 10 Mg/Ml Vial 2 Ml IVP 04/29/25 08:59 20 mg QDAY LISY Administration Levothyroxine Sodium 75 mcg 03/30/25 06:00 03/30/25 05:51 Levothyroxine Sodium 25 Mcg Tablet PO 04/28/25 09:59 75 mcg ACBR LISY Administration Midodrine 10 mg 03/29/25 09:07 Midodrine 5 Mg Tablet PO 04/29/25 08:59 QDAY PRN SBP below 100 Ondansetron HCl 4 mg 03/29/25 09:05 Ondansetron Inj 2 Mg/Ml Inj 2 Ml IVP 04/28/25 09:04 Q6H PRN NAUSEA OR VOMITING Protocol Pantoprazole Sodium 40 mg 03/29/25 09:15 03/30/25 08:51 Pantoprazole Inj 40 Mg Vial IVP 04/28/25 09:14 40 mg QDAY LISY Administration Sertraline HCl 50 mg 03/29/25 09:15 03/30/25 08:52 Sertraline Hcl 25 Mg Tablet PO 04/28/25 09:14 50 mg QDAY LISY Administration Sevelamer Carbonate 800 mg 03/29/25 14:00 03/30/25 05:51 Sevelamer Carbonate 800 Mg Tablet PO 04/28/25 13:59 800 mg TID LISY Administration Plan Cecily Desouza is 64 yr female with PMH of ESRD on HD (), hypertension, hypothyroidism, CHF presenting to ED due to SOB since last night. Patient stated that her last hemodialysis session was on Wednesday for 2 hours. Patient had to leave early due to appointment in [place] with her administration professional Dr. Bailey. Last night she started experiencing orthopnea requiring her to stand up multiple times throughout the night. Nephrology was consulted for resuming hemodialysis setting of fluid overload status. #ESRD on dialysis () #Hypertensive nephropathy # Volume overload, improved Likely secondary to short dialysis session on this past Wednesday. She also does have history of CHF. While in ED, she was started on BiPAP. Access site through right AV fistula. Versus orthopnea since last night. -Continue inpatient dialysis as scheduled -Avoid nephrotoxic medications and renally dose medications # Chronic anemia, normocytic Likely due to anemia due to kidney disease -Patient was found to have hemoglobin of 10-11 since 2020 - Continue to monitor #Hypertension Per patient, she has not been taking any antihypertensive medications since past couple months. She is on midodrine 5 mg daily and recently started on Coreg 3.125 mg BID per her administration professional Dr. Bailey. Patient just had angiogram done on Wednesday with results still pending. - Midodrine 5 mg p.o. daily Prn - Monitor BP for Coreg administration Plan of care discussed with attending physician, Dr. Morales. Som Gary MD PGY-1 Internal Medicine Attending Provider Attestation/Addendum Patient seen and examined with resident physician Dr. Gary. note reviewed, agree with findings and recommendations with few changes made. Patient has hypoxic respiratory failure secondary to fluid overload. Patient received dialysis yesterday and is feeling much better. Renal wing stable for discharge. Spoke to primary team
--- NOTE | 2025-03-30 11:41 | PC.SS ---
Follow up note: SS followed up with patient to verify discharge plans. Patient states she resides at [facility] and has been at [facility] for the last 7 months. Patient is on dialysis every //Sat @ 6a.m. on [place] with Dr. Morales. Patient states she takes [facility] and they warehouse order picker at [facility]. Patient confirmed she has 02 ([facility]). She states she uses 02 at night. Patient confirmed her son, Stephan, can pick her up today as she has d/c orders. SS will update floor nurse.
== END 2025-03-30 14:13 | disposition other institution (70) | DRG 425 ==
LOC: SERX 08:15 → SERHOLD 09:32 → S3NX 19:59
PROVIDERS: Emergency Medicine; Admitting Provider Student in an Organized Health Care Education/Training Program; Emergency Provider Emergency Medicine; PCP Physician Assistant; Visit Provider Student in an Organized Health Care Education/Training Program
DX: E87.70 Fluid overload, unspecified (principal); I13.2 Hypertensive heart and chronic kidney disease with heart failure and with stage 5 chronic kidney disease, or end stage renal disease; J96.21 Acute and chronic respiratory failure with hypoxia; N18.6 End stage renal disease; E03.9 Hypothyroidism, unspecified; E87.5 Hyperkalemia; I16.1 Hypertensive emergency; E78.5 Hyperlipidemia, unspecified; D63.1 Anemia in chronic kidney disease; D69.6 Thrombocytopenia, unspecified; F32.A Depression, unspecified; Z99.81 Dependence on supplemental oxygen; I25.10 Atherosclerotic heart disease of native coronary artery without angina pectoris; I50.32 Chronic diastolic (congestive) heart failure; E78.00 Pure hypercholesterolemia, unspecified; Z79.82 Long term (current) use of aspirin; Z79.899 Other long term (current) drug therapy; Z99.2 Dependence on renal dialysis
CPT/HCPCS: 36415; 71045; 80053; 80061; 80307; 81001; 83036; 83735; 83880; 84100; 84443; 84484; 85025; 85610; 85730; 87081; 87811; 94640; 94660; 96372; 96374; 96375; A9270; J0360; J1644; J1938; J2270; J2470; Q5105

== ENCOUNTER 2025-04-30 21:48 | Emergency (ER) | payer MEDICAID, SELFPAY ==
--- NOTE | 2025-04-30 21:51 | EKG_ITS ---
[facility] (Formerly [facility]) Test Date: 2025-04-30 Pat Name: JEWEL REYNOLDS Department: Room: - Gender: Female Industrial [employer]: : 1960 Requested By: ED Temporary Provider Order Number: [id number] Reading MD: ED Temporary Provider Measurements Intervals [place] Rate: 73 P: 29 CO: 146 QRS: 0 QRSD: 96 T: 97 QT: 380 QTc: 420 Interpretive Statements SINUS RHYTHM NONSPECIFIC T-WAVE ABNORMALITY Compared to ECG 09/30/2024 19:14:51 No significant changes /store/S0/[id number].pdf
--- NOTE | 2025-04-30 22:21 | XR_ITS ---
Examination: PA lateral chest 2 views TECHNIQUE: Upright PA and lateral chest 2 views Date and time: April 30, 2025 10:35 PM Comparison March 29, 2025 INDICATIONS: Shortness of breath today. FINDINGS: Mild chronic heart failure pattern [id number] enlargement cardiac contour, prominent vascular congestion and early edema at the lung bases Prominent osteopenia IMPRESSION: Mild chronic heart failure Pulmonary artery hypertension Small left pleural effusion
[2025-04-30 22:42] LABS: Basophils # (Auto) 0.0 Thou/mm3 (0.0-0.2); Basophils % (Auto) 0 % (0-2.5); Eosinophils # (Auto) 0.2 Thou/mm3 (0.0-0.5); Eosinophils % (Auto) 3 % (0-10); Hematocrit 30.7 % (36.0-46.0); Hemoglobin 9.7 g/dL (12.0-16.0); Immature Granulocytes Auto 0.01 Thou/mm3 (0.00-0.00); Lymphocytes # (Auto) 1.3 Thou/mm3 (1.0-4.8); Lymphocytes % (Auto) 27 % (10-50); Mean Corpuscular HGB Conc 31.6 g/dl (31.0-37.0); Mean Corpuscular Hemoglobin 28.7 pg (25.0-35.0); Mean Corpuscular Volume 91 fL (80-100); Monocytes # (Auto) 0.4 Thou/mm3 (0.0-0.8); Monocytes % (Auto) 8 % (0-12); Neutrophils # (Auto) 3.1 Thou/mm3 (1.8-7.7); Neutrophils % (Auto) 62 % (37-80); Nucleated Red Blood Cell # 0.00 Thou/mm3 (0.00-0.00); Nucleated Red Blood Cell % 0 /100 WBC (0); Platelet Count 110 Thou/mm3 (140-440); RDW Standard Deviation 45.1 fL (36.4-46.3); Red Blood Count 3.38 Miln/mm3 (4.00-5.20); White Blood Count 5.1 Thou/mm3 (3.6-11.0)
[2025-04-30 22:57] LABS: D-Dimer 273 ng/mL (<600)
[2025-04-30 23:00] LABS: INR 1.1 (0.9-1.3); Partial Thromboplastin Time 30.8 Seconds (22.0-36.0); Prothrombin Time 11.7 Seconds (9.0-12.2)
[2025-04-30 23:06] LABS: B-Type Natriuretic Peptide 774 pg/mL (0-100)
[2025-04-30 23:11] VITALS: BP 161/92; PULSE 65; RESP 19; TEMP 37; O2SAT 98
--- NOTE | 2025-04-30 23:13 | PD.EDSOB ---
ED SOB =RME/HPI General Chief Complaint: Shortness of Breath/Dyspnea Stated Complaint: SOB Time Seen by Provider: 04/30/25 22:30 Arrival date/time: 04/30/25 21:48 RME / HPI RME / HPI Narrative: Dr. Moura?s Main ED Evaluation: 65yo female with a history of cardiomyopathy, on dialysis, CHF, prior cocaine use, most recently admitted for acute hypoxic respiratory failure secondary to fluid overload now presenting with progressively worsening shortness of breath throughout the day. Patient is on 2L/NC at home. Denies fever, chills, productive cough, chest pain, or BLE pain or increased swelling. Related Data Home Medications ?Medication ?Instructions ?Recorded ?Confirmed levothyroxine 75 mcg tablet 75 mcg PO DAILY 01/09/24 03/29/25 sevelamer carbonate 800 mg tablet 1,600 mg PO TIDWMEAL 01/09/24 03/29/25 acetaminophen 650 mg 650 mg PO Q8H PRN pain 12/06/24 03/29/25 tablet,extended release aspirin 81 mg chewable tablet 1 tab PO DAILY 12/06/24 03/29/25 cinacalcet 30 mg tablet 30 mg PO .COMPLEX 12/06/24 03/29/25 midodrine 5 mg tablet 5 mg PO DAILY 12/06/24 03/29/25 atorvastatin 10 mg tablet 10 mg PO HS 03/29/25 03/29/25 carvedilol 3.125 mg tablet 3.125 mg PO Q12H 03/29/25 03/29/25 furosemide 40 mg tablet 40 mg PO DAILY 03/29/25 03/29/25 sertraline 50 mg tablet 50 mg PO Q24H 03/29/25 03/29/25 Previous Rx's ?Medication ?Instructions ?Recorded isosorbide mononitrate 30 mg 30 mg PO QAM #30 tabs 05/01/25 tablet,extended release 24 hr Allergies Allergy/AdvReac Type Severity Reaction Status Date / Time peach Allergy Severe SKIN RASH Verified 04/30/25 21:49 Review of Systems Review of Systems Systems Reviewed: All systems reviewed, normal except as documented Past Medical History Past Medical History NEUROLOGIC: Negative Neurological Disorders, Cerebrovascular Accident, Transient Ischemic Attacks (TIA), Dementia, Alzheimer's Disease, Parkinson's Disease, Brain Tumor, Meningitis, Seizures, Epilepsy, Multiple Sclerosis, Cerebral Palsy, Amyotrophic Lateral Sclerosis (ALS/Nasreen Gehrig's), Guillain-Wilson Syndrome, Spina Bifida, Paralysis, Peripheral Neuropathy, Lopez's Palsy, Subdural Hematoma, Migraine, Head Trauma, Spinal Cord Injury or Traumatic Brain Injury CARDIAC: Positive Cardiac Disorders, Hypercholesterolemia, Congestive Heart Failure, Edema, Hypertension and Hypotension; Negative Myocardial Infarction, Cardiac Arrhythmia, Atrial Fibrillation, Angina, Heart Murmur, Coronary Artery Disease, Atherosclerotic Heart Disease, Peripheral Vascular Disease, Aneurysm, Congenital Heart Disease, Valvular Heart Disease, Rheumatic Fever, Cardiomyopathy, Pericarditis, Cellulitis, Deep Vein Thrombosis or Varicose Veins RESPIRATORY: Negative Chronic Obstructive Pulmonary Disease (COPD), Asthma, Bronchitis, Emphysema, Pneumonia, Pulmonary Fibrosis, Cystic Fibrosis, Tuberculosis, Pulmonary Embolism, Pulmonary Edema or Sleep Apnea GASTROINTESTINAL: Positive Gastrointestinal Disorders, Gall Bladder Disease and Obesity; Negative Hepatitis, Cirrhosis, Pancreatitis, Celiac Disease, Gastrointestinal Bleed, Esophageal Varices, Newton's Esophagus, Colitis, Ulcerative Colitis, Diverticulitis, Diverticulosis, Ulcer, Colorectal Cancer, Irritable Bowel, Crohn's Disease, Obstructive Bowel, Hiatal Hernia, Hemorrhoids or Gastroesophageal Reflux Disease GENITOURINARY: Positive Genitourinary Disorders, Renal Disease and Dialysis (e sat); Negative Kidney Stones, Polycystic Kidney Disease, Neurogenic Bladder, Inguinal Hernia, Prostate Cancer or Benign Prostatic Hyperplasia REPRODUCTIVE: Positive Endometriosis and Previous Pregnancies; Negative Breast Cancer, Pelvic Inflammatory Disease, Testicular Cancer or Uterine Prolapse MUSCULOSKELETAL: Negative Musculoskeletal Disorders, Muscular Dystrophy, Myasthenia Gravis, Marfan's Syndrome, Bone Cancer, Arthritis, Rheumatoid Arthritis, Osteoporosis, Degenerative Disk Disease, Gout, Scoliosis, Carpal Tunnel Syndrome, Fibromyalgia, Fractures, Degenerative Joint Disease, Osteomyelitis or Poliovirus ENT: Negative Cataracts, Glaucoma, Blind, Retinal Detachment, Macular Degeneration, Ear Infection, Deafness, Head Trauma or Eye Prosthesis ENDOCRINE: Positive Endocrine Disorders and Hypothyroidism; Negative Diabetes Mellitus Type 1, Diabetes Mellitus Type 2, Hypoglycemia, [place]'s Syndrome, Miguel's Disease, Hyperthyroidism, Parathyroid Disease, Pituitary Disease, Systemic Lupus Erythematosus, Syndrome of Inappropriate Antidiuretic Hormone (SIADH), Adrenal Disease or Graves' Disease HEMATOLOGIC: Negative Blood Disorders, Anemia, Leukemia, Hemophilia, Thalassemia, Sickle Cell Disease or Clotting Problems PSYCHO/SOCIAL: Positive Recreational Drug Use, Depression and Anxiety; Negative Psychiatric Problems, Schizophrenia, Bipolar Disorder, Behavior Problems, Self-Mutilation, Attention Deficit Disorder, Attention Deficit Hyperactivity Disorder, Depression, Post Traumatic Stress Disorder or Eating Disorder OTHER HISTORY: Positive Hospitalization and Chicken Pox; Negative Autoimmune Disease, Down Syndrome, Autism, Developmental Delay, Shingles, Falls, Blood Transfusions, Anesthesia Reactions, Organ Transplant, Chemotherapy, Radiation Therapy, MRSA, VRSA, Vancomycin-Resistant Enterococci, Human Immunodeficiency Virus (HIV), Measles, Mumps, Rubella (Liberian Measles), Pertussis, Clostridium Difficile, Cancer, Breast Cancer, Cervical Cancer, Colorectal Cancer, Lung Cancer, Ovarian Cancer, Prostate Cancer or Testicular Cancer Family History FAMILY HISTORY: Positive Family Cardiac Disorders, Family Gastrointestinal Problems and Family Surgery; Negative Family Psychiatric Problems, Family Respiratory Disorders, Family Cancer or Family Anesthesia Reaction Surgical History SURGICAL: Positive Abdominal Surgery, Hysterectomy and Tubal Ligation; Negative Cardiac Surgery, Open Heart Surgery, Coronary Artery Bypass Graft, Valve Replacement, Vascular Surgery, Coronary Stent, Cardiac Catheterization, Pacemaker, Angiogram, Auto Implanted Cardiovert Defib, Carotid Endarterectomy, Endocrine Surgery, Thyroidectomy, Ear Surgery, Tympanostomy Tube, Eye Surgery, Nose Surgery, Oral Surgery, Tonsillectomy, Adenoidectomy, Gastric Bypass Surgery, Gastrostomy, Bowel Surgery, Nephrectomy, Transurethral Resection, Joint Replacement, Amputation, Open Reduction Internal Fixation, Arthroscopy, Neurologic Surgery, Brain Shunt, Mastectomy, Lumpectomy, Section, Vasectomy or Organ Transplant Social History SMOKING STATUS: Never smoker SECOND HAND EXPOSURE: No SUBSTANCE USE: does not use ED Exam Narrative Physical exam: GENERAL APPEARANCE: alert and oriented x 4, chronically-ill appearing, mildly edematous, no acute distress VITALS: All vitals were reviewed and the pulse ox is 98% on room air, which is normal according to my interpretation. HEENT: Normocephalic, atraumatic; pupils equal, round, reactive to light; EOMI; mucous membranes pink, moist; oropharynx clear NECK: Supple, JVD noted LUNGS: CTABL; no wheezes, no rales, no rhonchi HEART: Regular rate, regular rhythm; harsh systolic murmur at the left lower sternal border radiating to the carotids; no diminished carotid uptake ABDOMEN: non distended; normal BS; soft, no tenderness, no guarding, no rebound; no masses, no organomegaly, no hernia BACK: no CVA tenderness EXTREMITIES: atraumatic; no edema NEUROLOGIC: awake; alert and oriented x4; cranial nerves II-XII grossly intact; no focal sensory or motor deficits PSYCHIATRIC: appropriate mood and affect SKIN: warm, dry, normal color; no rashes Course Course Course Narrative: CXR is ordered for determining the etiology of shortness of breath. Quality Measures none Orders Category Date Time Status XR chest 2V Stat Exams 04/30/25 22:21 Completed B-Type Natriuretic Peptide Stat Lab 04/30/25 22:25 Completed CBC Stat Lab 04/30/25 22:25 Completed Comprehensive Metabolic Panel Stat Lab 04/30/25 22:25 Completed D-Dimer Stat Lab 04/30/25 22:25 Completed Drug Screen,Urine Stat Lab 04/30/25 23:24 Completed Magnesium Stat Lab 04/30/25 22:25 Completed Partial Thromboplastin Time Stat Lab 04/30/25 22:25 Completed Prothrombin Time with INR Stat Lab 04/30/25 22:25 Completed Troponin I Stat Lab 04/30/25 22:25 Completed Urinalysis Stat Lab 04/30/25 23:24 Completed Furosemide Inj [Lasix Inj] Med 04/30/25 23:31 Discontinued 40 mg IVP X1 ONE Nitroglycerin Oint 2% [Nitro-paste Oint 2%] Med 04/30/25 23:39 Discontinued 0.5 inch TOP X1 ONE Nitroglycerin Oint 2% [Nitro-paste Oint 2%] Med 04/30/25 23:31 Discontinued 1 inch TOP X1 ONE EKG (RT) Stat RT 04/30/25 21:51 Draft Vital Signs Vital signs: Vital Signs Temperature 98.6 F 04/30/25 23:11 Pulse Rate 65 04/30/25 23:11 Respiratory Rate 19 04/30/25 23:11 Blood Pressure 161/92 H 04/30/25 23:11 Pulse Oximetry (%) 98 04/30/25 23:11 Oxygen Delivery Method Room Air 04/30/25 23:11 Shortness of Breath / Dyspnea MDM Narrative MDM Narrative:: Scribe Attestation: 04/30/25 Huong Almonte am scribing for and in the presence of Dr. Moura. 65yo female with a history of cardiomyopathy, on dialysis, CHF, prior cocaine use, most recently admitted for acute hypoxic respiratory failure secondary to fluid overload now presenting with progressively worsening shortness of breath throughout the day. Patient is on 2L/NC at home. Please see PE findings. Lab markers show stable anemia and thrombocytopenia. Chemistries pending. BNP 774. CXR demonstrates mild CHF with enlarged pulmonary outflow tract consistent with pulmonary hypertension, in addition to a small left pleural effusion and marked cardiomegaly, which is improved when compared to previous CXR. Patient treated with topical nitrates and IV Lasix. Patient observed for an extended period of time. Patient with compensated CHF and clinical evidence of murmur consistent with aortic stenosis. Review of EMS shows a history of moderate based upon ECHO from 12/2023. Will recommend close follow-up with cardiology for further cardiac testing to assess cardiac valve. Will consider low-dose nitrates and have the patient follow-up with dialysis as scheduled. Patient data External records reviewed:: [facility] previous records (Per chart review, patient was admitted here on 03/29/25 for accelerated hypertension.) Clinical information provided by:: patient Social determinants that could affect healthcare access:: substance use Patient has the following chronic illnesses:: ESRD on HD, HTN, CHF, hypothyroidism How is presenting disease/condition affected by chronic disease/condition?: exacerbated by Evaluation data The following diagnostics were reviewed and interpreted by me:: lab results, radiology exam(s) and EKG tracing(s) Lab and/or radiology exams considered but not ordered:: none Interpretation Summary: EKG done at 2234, NSR, rate of 73, T-wave inversion in the high lateral leads (which is unchanged from previous), no ectopy, left axis deviation, according to my interpretation. ------ [place] [facility] Report Signed Patient: JEWEL REYNOLDS. Record#: [id number] Birthdate: 1960 Age/Sex: 65 / F Location: [facility] Attending Dr: Ordering Physician: Shaheen Aguirre DO Date of Service: 04/30/25 Procedure(s): XR chest 2V Accession Number(s): [id number] cc: Shaheen Aguirre DO; Carl Gomes MD; Viky Wick Examination: PA lateral chest 2 views TECHNIQUE: Upright PA and lateral chest 2 views Date and time: April 30, 2025 10:35 PM Comparison March 29, 2025 INDICATIONS: Shortness of breath today. FINDINGS: Mild chronic heart failure pattern [id number] enlargement cardiac contour, prominent vascular congestion and early edema at the lung bases Prominent osteopenia IMPRESSION: Mild chronic heart failure Pulmonary artery hypertension Small left pleural effusion Dictated By: Carl Gomes MD Signed By: <Electronically signed by Carl Gomes MD in OV> 04/30/25 2319 Medications / Prescriptions Medications or Prescriptions considered but not ordered:: none Medication administrations:: Medication Administration History Discontinued Medications Furosemide (Furosemide Inj 10 Mg/Ml 4ml Vial) 40 mg IVP X1 ONE Stop: 04/30/25 23:32 Last Admin: 05/01/25 00:01 Dose: 40 mg Documented By: EE Nitroglycerin (Nitroglycerin Oint 2% 1 Inch Packet) 1 inch TOP X1 ONE Stop: 04/30/25 23:32 Last Admin: 04/30/25 23:55 Dose: Not Given Documented By: EE Non-Admin Reason: Cancelled by Provider Nitroglycerin (Nitroglycerin Oint 2% 1 Inch Packet) 0.5 inch TOP X1 ONE Stop: 04/30/25 23:40 Last Admin: 05/01/25 00:01 Dose: 0.5 inch Documented By: MERRILL see above Consultations Consultation(s) initiated? (list below): No Diagnosis Shortness of Breath Differential Diagnosis: community acquired pneumonia and other (CHF exacerbation, fluid overload, noncompliance with dialysis) Most likely diagnosis given after review of the tests above:: Renal failure, Cardiomyopathy, Chronic heart failure, Aortic stenosis, moderate Admission Indicated Admission indicated?: not indicated Admission Request Was there a request for admission?: No Disposition Plan Disposition Plan: Discharge Discharge Attestation Discharge Attestation: The patient and all family members were given an opportunity to ask questions and understood the discharge instructions. Discharge instructions specifically effects, indications for sooner follow up or return to the emergency department, and the expected course of current diagnosis. Patient condition: Stable Discharge Plan Plan Patient Disposition: HOME (Self Care) Discharge Disposition comment: Stable Prescriptions/Referrals Prescriptions/Med Rec: New isosorbide mononitrate 30 mg tablet extended release 24 hr 30 mg PO QAM Qty: 30 0RF No Action levothyroxine 75 mcg tablet 75 mcg PO DAILY sevelamer carbonate 800 mg tablet 1,600 mg PO TIDWMEAL aspirin 81 mg tablet,chewable 1 tab PO DAILY acetaminophen 650 mg tablet extended release 650 mg PO Q8H PRN (Reason: pain) midodrine 5 mg tablet 5 mg PO DAILY cinacalcet 30 mg tablet 30 mg PO .COMPLEX Rx Instructions: 30 mg orally 3x a week, mon-wed-fri; furosemide 40 mg tablet 40 mg PO DAILY carvedilol 3.125 mg tablet 3.125 mg PO Q12H sertraline 50 mg tablet 50 mg PO Q24H atorvastatin 10 mg tablet 10 mg PO HS Referrals: Viky Wick PA-C [Primary Care Provider] - In 1 week Problem List Clinical Impression: Renal failure, Cardiomyopathy, Chronic heart failure, Aortic stenosis, moderate Patient/Caregiver Discharge Instructions Discharge Activity: activity as tolerated Additional Instructions: Begin new medications as directed. Follow-up with dialysis as scheduled. Additionally follow-up with material handler loader for consideration of repeat echocardiography to assess aortic valve. Return if worsening Print Language: Danish Stand Alone Forms: Devi Award Info., Patient Portal Info Letter
[2025-04-30 23:23] LABS: Alanine Aminotransferase < 7 U/L (10-49); Albumin, Serum 3.9 gm/dL (3.4-4.8); Albumin/Globulin Ratio 1.7 (1.2-2.2); Alkaline Phosphatase 63 U/L (46-116); Anion Gap 13 (7-16); Aspartate Amino Transferase 10 U/L (0-34); BUN/Creatinine Ratio 9 Ratio (12-20); Bilirubin,Total 0.2 mg/dL (0.3-1.2); Blood Urea Nitrogen 72 mg/dL (9-23); Calcium 9.8 mg/dL (8.3-10.6); Calcium (Corrected) 9.9 mg/dL (8.5-10.1); Carbon Dioxide 26.7 mMol/L (20.0-31.0); Chloride 101 mMol/L (98-107); Creatinine (Component) 8.4 mg/dL (0.6-1.3); Globulin 2.3 gm/dL (2.3-3.5); Glucose 85 mg/dL (74-106); Magnesium 2.4 mg/dL (1.6-2.6); Osmolality,Calculated 301 (275-295); Potassium 5.2 mMol/L (3.4-5.1); Sodium 141 mMol/L (136-145); Total Protein 6.2 gm/dL (5.7-8.2); eGFR 5 See Note
[2025-04-30 23:29] LABS: Collection Type, Urine Clean Catch
[2025-04-30 23:39] LABS: Troponin I 0.106 ng/mL (0.0-0.045)
[2025-04-30 23:42] LABS: Bacteria,Urine 1+; Bilirubin,Urine Negative (Negative); Blood,Urine 3+ (Negative); Clarity,Urine Turbid (Clear/Hazy); Color,Urine Lt-Yellow (Lt Yel-Yel); Glucose, Urine 1+ (Negative); Ketones,Urine Negative (Negative); Leukocyte Esterase,Urine Positive (Negative); Nitrite,Urine Negative (Negative); PH,Urine 7.5 (5.0-7.0); Protein,Urine 3+ (Neg - Trace); RBC,Urine 116 /hpf (0-3); Specific Gravity,Urine 1.011 (1.001-1.035); Squamous Epithelial Cell,Urine 7 /hpf (0-5); Urobilinogen,Urine Negative mg/dL (0.0-1.0); WBC,Urine 131 /hpf (0-5)
[2025-04-30 23:46] LABS: Amphetamine/Methamp Scrn,U Negative (Negative); Barbiturate Screen,Urine Negative (Negative); Benzodiazepines Screen,Urine Negative (Negative); Benzoylecgonine Screen, Ur Negative (Negative); Fentanyl Screen,Urine Negative (Negative); Opiate Screen,Urine Negative (Negative); THC Screen,Urine Negative (Negative)
[2025-05-01 00:01] VITALS: BP 171/85; PULSE 74
[2025-05-01] MEDS: FUROSEMIDE INJ 10 MG/ML 4ML VIAL 40 MG IVP (00:01)
[2025-05-01] MEDS: NITROGLYCERIN OINT 2% 1 INCH PACKET 0.5 INCH TOP (00:01)
[2025-05-01 00:19] VITALS: BP 189/81; PULSE 71; RESP 19; TEMP 36.8; O2SAT 99
[2025-05-01 01:41] VITALS: BP 177/96; PULSE 78; RESP 18; TEMP 36.7; O2SAT 99
== END 2025-05-01 01:43 | disposition home or self-care (01) ==
PROVIDERS: Emergency Provider Emergency Medicine; PCP Physician Assistant
DX: I13.2 Hypertensive heart and chronic kidney disease with heart failure and with stage 5 chronic kidney disease, or end stage renal disease (principal); N18.6 End stage renal disease; I50.9 Heart failure, unspecified; I27.21 Secondary pulmonary arterial hypertension; E03.9 Hypothyroidism, unspecified; I42.9 Cardiomyopathy, unspecified; I35.0 Nonrheumatic aortic (valve) stenosis; E78.00 Pure hypercholesterolemia, unspecified; D69.6 Thrombocytopenia, unspecified; Z99.2 Dependence on renal dialysis; Z79.890 Hormone replacement therapy; Z79.82 Long term (current) use of aspirin; Z79.899 Other long term (current) drug therapy
CPT/HCPCS: 36415; 71046; 80053; 80307; 81001; 83735; 83880; 84484; 85025; 85379; 85610; 85730; 93005; 96374; 99284; J1938; A9270

== ENCOUNTER 2025-07-09 11:51 | Observation (INO) | payer MEDICAID, SELFPAY ==
[2025-07-09] VITALS (19 sets, daily range): BP systolic 124–203; BP diastolic 72–98; PULSE 72–91; RESP 19–28; TEMP 36.7–37.3; O2SAT 87–100; BMI 34.3
--- NOTE | 2025-07-09 12:23 | XR_ITS ---
EXAMINATION: AP chest single view TECHNIQUE: AP portable upright chest single view Date and time: July 09, 2025, 1237 hours, comparison April 30, 2025 INDICATIONS: Chest pain today. FINDINGS: Mild chronic heart failure pattern Mild enlargement cardiac contour Ectatic thoracic aorta. Prominent vascular congestion including enlarged main pulmonary artery segments Early edema at the lung bases IMPRESSION: Mild heart failure Pulmonary artery hypertension
--- NOTE | 2025-07-09 12:23 | EKG_ITS ---
[facility] Test Date: 2025-07-09 Pat Name: JEWEL REYNOLDS Department: Room: - Gender: Female Ware[employer]: : 1960 Requested By: Viviane Warner Order Number: [id number] Reading MD: Viviane Warner Measurements Intervals [place] Rate: 77 P: 44 CO: 181 QRS: 7 QRSD: 97 T: 103 QT: 362 QTc: 410 Interpretive Statements SINUS RHYTHM ST DEVIATION AND MODERATE T-WAVE ABNORMALITY, CONSIDER LATERAL ISCHEMIA [-0.1+ mV T-WAVE IN I/aVL/V5/V6] Compared to ECG 04/30/2025 22:34:55 Possible ischemia now present T-wave abnormality still present /store/S0/[id number].pdf
--- NOTE | 2025-07-09 12:24 | PD.EDSOB ---
ED SOB =RME/HPI General Chief Complaint: Shortness of Breath/Dyspnea Stated Complaint: TROUBLE BREATHING Time Seen by Provider: 07/09/25 12:20 Source: patient Arrival date/time: 07/09/25 11:51 Mode of arrival: ambulatory Limitations: no limitations RME / HPI RME / HPI Narrative: Patient is a 65-year-old female with medical history notable for hyperlipidemia, heart failure, ESRD, goes to dialysis Wednesday that send emergency department concerns for shortness of breath. Patient follows with Dr. Aguilar, she missed dialysis on Wednesday. This morning woke up feeling chills, having difficulty breathing and some mild chest pain. Denies abdominal pain dysuria hematuria melena bloody stools drugs alcohol smoking. Patient has not traveled recently, no sick contacts. Patient does not any allergies to medications. She still makes urine Related Data Home Medications ?Medication ?Instructions ?Recorded ?Confirmed levothyroxine 75 mcg tablet 75 mcg PO DAILY 01/09/24 03/29/25 sevelamer carbonate 800 mg tablet 1,600 mg PO TIDWMEAL 01/09/24 03/29/25 acetaminophen 650 mg 650 mg PO Q8H PRN pain 12/06/24 03/29/25 tablet,extended release aspirin 81 mg chewable tablet 1 tab PO DAILY 12/06/24 03/29/25 cinacalcet 30 mg tablet 30 mg PO .COMPLEX 12/06/24 03/29/25 midodrine 5 mg tablet 5 mg PO DAILY 12/06/24 03/29/25 atorvastatin 10 mg tablet 10 mg PO HS 03/29/25 03/29/25 carvedilol 3.125 mg tablet 3.125 mg PO Q12H 03/29/25 03/29/25 furosemide 40 mg tablet 40 mg PO DAILY 03/29/25 03/29/25 sertraline 50 mg tablet 50 mg PO Q24H 03/29/25 03/29/25 Previous Rx's ?Medication ?Instructions ?Recorded isosorbide mononitrate 30 mg 30 mg PO QAM #30 tabs 05/01/25 tablet,extended release 24 hr Allergies Allergy/AdvReac Type Severity Reaction Status Date / Time peach Allergy Severe SKIN RASH Verified 07/09/25 11:54 ED Exam General Limitations: Present no limitations General appearance: Present alert and in no apparent distress (However uncomfortable) Head Head exam: Present atraumatic and normocephalic Eye Eye exam: Present normal appearance and PERRL ENT ENT exam: Present normal exam Neck Neck exam: Present normal inspection Chest Chest inspection: Present symmetric chest wall rise Respiratory Respiratory exam: Present other (Coarse breath sounds,) Abdominal Exam Abdominal exam: Absent distention Extremities Exam Extremities exam: Present other (Patient fistula right upper extremity) Neurological Exam Neurological exam: Present alert and other (No gross cranial nerve abnormalities nor focal neurodeficits) Psychiatric Psychiatric exam: Present normal affect Course Quality Measures none Orders Category Date Time Status Bedside COVID-19 Antigen Test NOW Care 07/09/25 12:23 Active Dialysis [Hemodialysis] Urgent Care 07/09/25 12:57 Active EKG (ED ONLY) *Do not use* NOW Care 07/09/25 12:23 Completed CXR [XR chest 1V] Stat Exams 07/09/25 12:23 Completed EKG (ED Only) Stat Exams 07/09/25 12:23 Draft BNP [B-Type Natriuretic Peptide] Stat Lab 07/09/25 12:41 Completed CBC Stat Lab 07/09/25 12:41 Completed CMP [Comprehensive Metabolic Panel] Stat Lab 07/09/25 12:41 Completed Influenza A & B Rapid Panel Stat Lab 07/09/25 12:45 Completed Troponin I Stat Lab 07/09/25 12:41 Completed Albumin Human-Kjda 25% Ivpb [Albuminex 25% Ivpb] Med 07/09/25 12:57 Active 25 gm in 100 ml IV PRN Vital Signs Vital signs: Vital Signs Temperature 99.1 F 07/09/25 12:14 Pulse Rate 91 07/09/25 12:14 Respiratory Rate 28 H 07/09/25 12:14 Blood Pressure 168/96 H 07/09/25 12:14 Pulse Oximetry (%) 87 L 07/09/25 12:14 Oxygen Delivery Method Room Air 07/09/25 12:14 Shortness of Breath / Dyspnea MDM Narrative MDM Narrative:: Patient is a 65-year-old female seen emerged from concerns for shortness of breath. Vital signs and exam as listed. Concern for ACS arrhythmia electrolyte abnormality fluid overload pneumonia viral syndrome among others. Ordered labs EKG chest x-ray. Offer medication for symptom relief. Provided patient with supplemental oxygen. Labs with hemoglobin 10.6 previously normal. Patient potassium is 5.5 will provide medications for management of hyperkalemia. BUN is 76. No significant transaminitis, troponin is 0.116 this is near patient's baseline. Patient BNP is 1474 twice patient's baseline. Concern for fluid overload. Patient does make urine, will diurese we will also consult her legal stenographer for dialysis. Chest x-ray with pulmonary hypertension and heart failure. EKG performed today at 1258 notable for sinus rhythm heart rate 77, normal intervals, nonspecific T wave changes, not a cardiac alert. 1:55p discussed case with patient's legal stenographer Dr. Aguilar. Will place dialysis orders. Discussed case with hospitalist team B, kindly accepts patient for admission Patient data External records reviewed:: [facility] previous records Clinical information provided by:: patient Social determinants that could affect healthcare access:: substance use Patient has the following chronic illnesses:: See MDM How is presenting disease/condition affected by chronic disease/condition?: exacerbated by Evaluation data The following diagnostics were reviewed and interpreted by me:: lab results, radiology exam(s) and EKG tracing(s) Lab and/or radiology exams considered but not ordered:: None Interpretation Summary: See MDM Medications / Prescriptions Medications or Prescriptions considered but not ordered:: None Medication administrations:: Medication Administration History Albumin Human (Albuminex 25% Ivpb) 25 gm in 100 mls @ 100 mls/hr IV PRN PRN PRN Reason: DIALYSIS See above Consultations Consultation(s) initiated? (list below): Yes Diagnosis Shortness of Breath Differential Diagnosis: other (See MDM) Most likely diagnosis given after review of the tests above:: Fluid overload, hypoxic respiratory failure, hypokalemia Admission Indicated Admission indicated?: indicated Admission Request Was there a request for admission?: Yes Admission Attestation Admission request attestation: Discussed case with Hospitalist service regarding admission. Discussed patients ED course, exam findings, labs, and radiology results. The Hospitalist [agrees] to accept the patient for admission. Disposition Plan Disposition Plan: Admit Critical Care Time Critical Care Time Critical Care Time: Yes Total Critical Care Time (min.): 36 Attestation: Due to a high probability of clinically significant, life threatening deterioration, the patient required my highest level of preparedness to intervene emergently and I personally spent this critical care time directly and personally managing the patient. This critical care time included obtaining a history; examining the patient; pulse oximetry; ordering and review of studies; arranging urgent treatment with development of a management plan; evaluation of patient's response to treatment; frequent reassessment; and, discussions with other providers. This critical care time was performed to assess and manage the high probability of imminent, life-threatening deterioration that could result in multi-organ failure. It was exclusive of separately billable procedures and treating other patients and teaching time. Please see MDM section and the rest of the note for further information on patient assessment and treatment. Discharge Plan Plan Patient Disposition: Admit Acute Care w/in Hospital Prescriptions/Referrals Prescriptions/Med Rec: No Action levothyroxine 75 mcg tablet 75 mcg PO DAILY sevelamer carbonate 800 mg tablet 1,600 mg PO TIDWMEAL aspirin 81 mg tablet,chewable 1 tab PO DAILY acetaminophen 650 mg tablet extended release 650 mg PO Q8H PRN (Reason: pain) midodrine 5 mg tablet 5 mg PO DAILY cinacalcet 30 mg tablet 30 mg PO .COMPLEX Rx Instructions: 30 mg orally 3x a week, mon-wed-fri; furosemide 40 mg tablet 40 mg PO DAILY carvedilol 3.125 mg tablet 3.125 mg PO Q12H sertraline 50 mg tablet 50 mg PO Q24H atorvastatin 10 mg tablet 10 mg PO HS isosorbide mononitrate 30 mg tablet extended release 24 hr 30 mg PO QAM Qty: 30 0RF Problem List Clinical Impression: Acute hypoxic respiratory failure, Acute hyperkalemia, Fluid overload Patient/Caregiver Discharge Instructions Print Language: [place] Stand Alone Forms: Devi Award Info., Patient Portal Info Letter
[2025-07-09 12:56] LABS: Basophils # (Auto) 0.0 Thou/mm3 (0.0-0.2); Basophils % (Auto) 0 % (0-2.5); Eosinophils # (Auto) 0.1 Thou/mm3 (0.0-0.5); Eosinophils % (Auto) 2 % (0-10); Hematocrit 33.1 % (36.0-46.0); Hemoglobin 10.6 g/dL (12.0-16.0); Immature Granulocytes Auto 0.02 Thou/mm3 (0.00-0.00); Lymphocytes # (Auto) 1.0 Thou/mm3 (1.0-4.8); Lymphocytes % (Auto) 16 % (10-50); Mean Corpuscular HGB Conc 32.0 g/dl (31.0-37.0); Mean Corpuscular Hemoglobin 28.2 pg (25.0-35.0); Mean Corpuscular Volume 88 fL (80-100); Monocytes # (Auto) 0.5 Thou/mm3 (0.0-0.8); Monocytes % (Auto) 8 % (0-12); Neutrophils # (Auto) 4.3 Thou/mm3 (1.8-7.7); Neutrophils % (Auto) 73 % (37-80); Nucleated Red Blood Cell # 0.00 Thou/mm3 (0.00-0.00); Nucleated Red Blood Cell % 0 /100 WBC (0); Platelet Count 111 Thou/mm3 (140-440); RDW Standard Deviation 40.8 fL (36.4-46.3); Red Blood Count 3.76 Miln/mm3 (4.00-5.20); White Blood Count 5.9 Thou/mm3 (3.6-11.0)
[2025-07-09 13:24] LABS: Influenza A Ag Negative; Influenza B Ag Negative
[2025-07-09 13:38] LABS: Alanine Aminotransferase < 7 U/L (10-49); Albumin, Serum 4.6 gm/dL (3.4-4.8); Albumin/Globulin Ratio 1.8 (1.2-2.2); Alkaline Phosphatase 55 U/L (46-116); Anion Gap 13 (7-16); Aspartate Amino Transferase 11 U/L (0-34); B-Type Natriuretic Peptide 1474 pg/mL (0-100); BUN/Creatinine Ratio 7 Ratio (12-20); Bilirubin,Total 0.3 mg/dL (0.3-1.2); Blood Urea Nitrogen 76 mg/dL (9-23); Calcium 10.0 mg/dL (8.3-10.6); Calcium (Corrected) 10.0 mg/dL (8.5-10.1); Carbon Dioxide 24.2 mMol/L (20.0-31.0); Chloride 100 mMol/L (98-107); Creatinine (Component) 10.5 mg/dL (0.6-1.3); Estimated Creatinine Clearance 5.8 mL/min (>60); Globulin 2.6 gm/dL (2.3-3.5); Glucose 97 mg/dL (74-106); Osmolality,Calculated 296 (275-295); Potassium 5.5 mMol/L (3.4-5.1); Sodium 137 mMol/L (136-145); Total Protein 7.2 gm/dL (5.7-8.2); eGFR 4 See Note
[2025-07-09 13:40] LABS: Troponin I 0.116 ng/mL (0.0-0.045)
--- NOTE | 2025-07-09 14:25 | ESHP_ITS ---
<Statement entered by Tj Estrella MD - 07/09/25 16:49> 64-year-old female with past medical history of ESRD on HD (), hypertension, hypothyroidism, CHF presents to the ED with shortness of breath after missed dialysis session on 07/07. Patient initially was saturating in the low 80s on room air in the ED as result met acute hypoxic respiratory failure criteria and will be admitted for observation and dialysis. Will also order echo as the patient's BNP is elevated and last echo was sometime in 2023. Patient otherwise stable and currently during dialysis session was saturating 96 on 1 L. Patient uses 2 L of oxygen at night at home we will continue monitoring oxygen supplementation needs. I have personally seen and examined the patient. I agree with the resident's assessment and plan as documented below. Tj Estrella DO PGY-2 Internal Medicine - [facility] Documentation for date of: 07/09/25 HPI History of Present Illness History of present illness: History of Present Illness: 64-year-old female with past medical history of ESRD on HD () followed by Dr. Morales, hypertension, hypothyroidism, CHF presented to the ED with shortness of breath after missing dialysis session on 07/07. After missing wednesday dialysis, patient was feeling fine until yesterday. This morning she felt increased shortness of breath with headache. 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 She has AV fistula on her right arm. She also has long standing HTN. Denies chest pain, palpation, abdominal pain, N/V, fevers or chills. Patient will be admitted for acute hypoxic respiratory failure secondary to missed hemodialysis. ED course: Vitals: Temperature 99.1 F, SC 91, RR 20, BP 168/96, 87% O2 saturation on room air. Labs: Potassium 5.5, bicarb 24.2,BUN 76, Cr 10.5, eGFR 4, troponin 0.116, BNP 1474. ED: patient was given albumin IV 25 g and started on hemodialysis. Medical history: As stated above Surgical history: R AV fistula Allergies: [place] allergy Medications: Aspirin 81 mg po qd, Carvedilol 3.125 mg Po q12hr, Furossemide 40mg po qd, Isosorbide mononitrate 30mg tb, Levothyroxine 75mcg po qd. Rest pending official med rec Family history: [place] allergy Social history: Denies smoking cigarettes, drinking alcohol or using other illicit drugs Review of Systems Review of Systems Narrative Review of Systems: All 12 systems assessed and the patient denies unless otherwise stated in HPI Exam Vital Signs Temp Pulse Resp BP Pulse Ox O2 Del Method O2 Flow Rate 98.4 F 84 24 H 186/96 H 95 Room Air 1 07/09/25 13:35 07/09/25 13:35 07/09/25 13:35 07/09/25 13:35 07/09/25 13:35 07/09/25 12:14 07/09/25 13:35 Narrative Exam General: No acute distress, well nourished, AAO x3 Eye: PERRL, EOMI, normal conjunctiva, no scleral icterus HENT: Normocephalic, atraumatic, hearing intact to conversation at normal volume, moist oral mucosa Neck: Supple, non-tender, no JVD, no lymphadenopathy Lungs: Non-labored respirations, symmetric chest rise, Clear to auscultate bilaterally, No wheezing, rhonchi, crackles Heart: Peripheral pulses intact bilaterally, Regular Rate and Rhythm. Systolic ejection murmur on Left sternal border Abdomen: Soft, non-tender, non-distended, no palpable masses Musculoskeletal: Normal range of motion and strength, No cyanosis or edema, No visible joint swelling Skin: Skin is warm, dry, no rashes or lesions. Right brachiocephalic AV fistula. Psychiatric: Cooperative, appropriate mood and affect, Awake and alert, not agitated Neuro: Cranial nerves II-XII grossly intact. Strength 5/5 throughout. Sensations intact to light touch. Results: Labs 07/09/25 12:41 07/09/25 12:41 Labs: Short CBC 07/09/25 Range/Units 12:41 WBC 5.9 (3.6-11.0) Thou/mm3 Hgb 10.6 L (12.0-16.0) g/dL Hct 33.1 L (36.0-46.0) % Plt Count 111 L (140-440) Thou/mm3 BMP 07/09/25 12:41 Sodium 137 Potassium 5.5 H Chloride 100 Carbon Dioxide 24.2 BUN 76 H Creatinine 10.5 H* Glucose 97 Calcium 10.0 Cardiac Enzymes 07/09/25 Range/Units 12:41 Troponin I 0.116 H* (0.0-0.045) ng/mL Liver Function 07/09/25 Range/Units 12:41 Total Bilirubin 0.3 (0.3-1.2) mg/dL AST 11 (0-34) U/L ALT < 7 L (10-49) U/L Alkaline Phosphatase 55 (46-116) U/L Albumin 4.6 (3.4-4.8) gm/dL Quality Measures Quality Measures none Medications Home Medications and Allergies Home Medications ?Medication ?Instructions ?Recorded ?Confirmed ?Type levothyroxine 75 mcg tablet 75 mcg PO DAILY 01/09/24 0 03/29/25 History sevelamer carbonate 800 mg tablet 1,600 mg PO TIDWMEAL 01/09/24 03/29/25 History acetaminophen 650 mg 650 mg PO Q8H PRN pain 12/0603/29/25 History tablet,extended release aspirin 81 mg chewable tablet 1 tab PO DAILY 12/06/24 03/29/25 History cinacalcet 30 mg tablet 30 mg PO .COMPLEX 12/06/24 0 03/29/25 History midodrine 5 mg tablet 5 mg PO DAILY 12/06/2403/29 History atorvastatin 10 mg tablet 10 mg PO HS 03/29/25 5 History carvedilol 3.125 mg tablet 3.125 mg PO Q12H 03/29/25 0 03/29/25 History furosemide 40 mg tablet 40 mg PO DAILY 03/29/2503/20 History sertraline 50 mg tablet 50 mg PO Q24H 03/29/2503/29 History Allergies Allergy/AdvReac Type Severity Reaction Status Date / Time peach Allergy Severe SKIN RASH Verified 07/09/25 11:54 Visit Medications Albumin Human (Albuminex 25% Ivpb) 25 gm in 100 mls @ 100 mls/hr IV PRN PRN PRN Reason: DIALYSIS Discontinued Medications Albuterol (Albuterol Rt 2.5 Mg/3 Ml Nebu) 2.5 mg INH X1 ONE Stop: 07/09/25 13:57 Dextrose (Dextrose 50%-Water Inj 50 Ml Syringe) 100 ml IV X1 ONE Stop: 07/09/25 13:57 Furosemide (Furosemide Inj 10 Mg/Ml Vial 2 Ml) 40 mg IVP X1 ONE Stop: 07/09/25 13:57 Insulin Human Regular (Insulin Hum Regular 1 Unit/0.01 Ml (Per Unit)) 5 unit IV X1 ONE Stop: 07/09/25 13:57 Sodium Polystyrene Sulfonate (Sod Polystyrene Sulfon Susp 15 Gm/60 Ml Btl) 30 gm PO X1 ONE Stop: 07/09/25 13:57 Assessment & Plan Plan 64-year-old female with past medical history of ESRD on HD (//) followed by Dr. Morales, hypertension, hypothyroidism, CHF presented to the ED with shortness of breath after missing dialysis session on 07/07. Patient will be admitted for acute hypoxic respiratory failure secondary to missed hemodialysis. #Acute Hypoxic Respiratory Failure 2/2 Missed Hemodialysis session #ESRD on hemodialysis (//Wed) #Anemia of Chronic Kidney disease #Hyperkalemia -On admission: BUN: 24.2 Cr: 10.5 eGFR: 4, Hgb:10.6 MCV: 88, Potassium: 5.5, 87% O2 say on room air -Uses 2L oxygen at home -The patient received hemodialysis on admission (07/09) -No signs of volume overload on exam. -CXR: Mild heart failure Pulmonary artery hypertension -Hemodialysis sessions: 07/09 Plan: -Monitor renal function -Maintain fluid restriction, avoid nephrotoxic agents when possible, renally dose medications -Strict i and o -Hemodialysis per schedule -Consulted Nephrology, Dr. Morales, appreciate recommendations. #Hypertensive Emergency #Troponemia, chronic #Hx of CHF #Hx of HFpEF 55% in 2023 -Patient's troponin chronically elevated. 0.116 on admission -BNP: 1474, BP: 182/94 -Patient has SOB, but no chest pain, palpation, Orthopnea, PND Plan: -ECHO pending -Restarted her home medication: Aspirin 81 mg po qd, Carvedilol 3.125 mg Po q12hr, Furossemide 40mg po qd, Isosorbide mononitrate 30mg tb, #Hypothyrodism -Retarted home med Levothyroxine 75 mcg po qd. Disposition: Med surg Diet: Renal Diet GI prophylaxis: Maalox DVT prophylaxis: SCD Code:FULL Assessment and plan discussed with my attending physician Dr. Garcia and Dr. Estrella (PGY-2) Dr. Ramachandran (PGY-1) - Internal medicine resident Attending Provider Attestation/Addendum I, Maritza Garcia DO, attest that I was physically present for the huggins portions of the service and evaluated the patient with the resident and I reviewed and discussed the case with the resident and agree with the resident's findings and plans of care as documented above #Acute hypoxic respiratory failure #Volume overload #ESRD on HD #Anemia of chronic disease #hyperkalemia #hypertensive urgency #elevated troponin #Hx of HFpEF #suspected pulmonary arterial hypertension #hypothyroidism Patient is a 64-year-old female with past medical history of end-stage renal disease on hemodialysis Tuesdays and Saturdays, hypertension, hypothyroidism, CHF who presented to the ED due to worsening shortness of breath. Patient was unable to obtain transportation to her dialysis appointment on Wednesday morning. She has been progressively having worsening shortness of breath and some swelling over her eyelids today She which prompted her to come to the ED. Patient was noted to have mild vascular congestion on chest x-ray. BNP was noted to be elevated at 1474. She has a detectable troponin, likely secondary to demand ischemia. Patient denies any active chest pain, fevers, chills abdominal pain, diarrhea, dysuria otherwise. She is also noted to have mild hyperkalemia. Nephrology was consulted from the ED and has started patient on dialysis. Fistula is functioning well. Lungs are clear to auscultation bilaterally. No edema noted in bilateral lower extremities. Patient has been tolerating dialysis well. She received 1 dose of Lasix in the ED today and Kayexalate. Will continue with home antihypertensive. She is currently on 1 L nasal cannula. Patient uses 2 L nasal cannula as needed at night. Anticipate discharge within the next 24 hours if patient is able to be weaned to room air and undergoes another session of her regularly scheduled dialysis in AM. Will admit patient to med/telemetry for further observation due to acute hypoxic respiratory failure.
--- NOTE | 2025-07-09 14:25 | ECHO_ITS ---
Transthoracic Echo Report Ht (in): 63 Wt (lb): 194 Exam Location: Echo Lab Status: Emergency Metal Organ Pipe Maker: Kristy Douglass Indications: Procedure Performed: BP: 142 / 81 HR: 72 Technical Quality: Technically difficult study MEASUREMENTS (Male / Female) Normal Values 2D ECHO LV Diastolic Diameter PLAX 6.0 cm 4.2 - 5.9 / 3.9 - 5.3 cm LV Systolic Diameter PLAX 4.3 cm IVS Diastolic Thickness 0.7 cm 0.6 - 1.0 / 0.6 - 0.9 cm LVPW Diastolic Thickness 1.2 cm 0.6 - 1.0 / 0.6 - 0.9 cm LV Relative Wall Thickness 0.3 LVOT Diameter 2.0 cm LV Ejection Fraction MOD BP 43.0 % >= 55 % LV Cardiac Index MOD BP 2182.4 cm?/min?m? LV Ejection Fraction MOD 4C 55.1 % LV Cardiac Index MOD 4C 2518.1 cm?/min?m? LV Ejection Fraction 4C AL 56.4 % LV Cardiac Index 4C AL 2817.2 cm?/min?m? LV Ejection Fraction MOD 2C 36.9 % LV Cardiac Index MOD 2C 2032.4 cm?/min?m? LV Ejection Fraction 2C AL 36.5 % LV Cardiac Index 2C AL 2036.2 cm?/min?m? LA Volume Index 50.2 cm?/m? 16 - 28 cm?/m? DOPPLER AV Peak Velocity 478.0 cm/s AV Peak Gradient 91.4 mmHg AV Mean Gradient 54.5 mmHg AV Velocity Time Integral 110.5 cm LVOT Peak Velocity 117.0 cm/s LVOT Peak Gradient 5.5 mmHg LVOT Velocity Time Integral 28.8 cm LVOT Cardiac Index 3231.7 cm?/min?m? AV Area Cont Eq vti 0.8 cm? AV Area Cont Eq pk 0.8 cm? MV Peak Velocity 170.0 cm/s MV Peak Gradient 11.6 mmHg MV Mean Velocity 114.0 cm/s MV Mean Gradient 6.0 mmHg MV Area PHT 2.8 cm? MR Peak Velocity 363.5 cm/s MR Peak Gradient 52.9 mmHg Mitral E Point Velocity 140.0 cm/s Mitral A Point Velocity 111.0 cm/s Mitral E to A Ratio 1.3 LV E' Lateral Velocity 4.2 cm/s Mitral E to LV E' Lateral Ratio 33.0 LV E' Septal Velocity 4.2 cm/s Mitral E to LV E' Septal Ratio 33.0 TR Peak Velocity 278.0 cm/s TR Peak Gradient 30.9 mmHg FINDINGS Left Ventricle Normal left ventricular size, wall thickness, systolic function with mild global hypokinesis. The ejection fraction is visually estimated at 45-50 %. Right Ventricle The right ventricle is normal in size and systolic function. Left Atrium The left atrium is normal by two-dimensional, color flow and Doppler imaging with no structural abnormalities, no thrombus formation present. Right Atrium The right atrium is normal by two-dimensional imaging, color flow and Doppler imaging with no structural abnormalities, no thrombus formation present. Atrial Septum The interatrial septum appears normal with no evidence of a shunt. Aorta The aorta is normal by two-dimensional, color flow and Doppler interrogation. Mitral Valve Mild mitral valve stenosis. Moderate mitral annular calcification. Trace mitral regurgitation. Aortic Valve Severe aortic valve stenosis, mean gradient 54.5 mmHg, MAE 0.82 cm?. Tricuspid Valve The tricuspid valve is normal by two-dimensional, color flow and Doppler interrogation. There is no significant tricuspid valve regurgitation. Pulmonic Valve The pulmonic valve is not well visualized. There is no significant pulmonic valve regurgitation. Vessels The pulmonary artery appears normal. The inferior vena cava pulmonary and hepatic veins appear normal. Pericardium The pericardium is normal by two-dimensional imaging. There is no significant pericardial effusion. CONCLUSIONS Indication: elevated BNP Severe Calcific aortic avlve stenosis Vmac 4.9m/sec, Mean gradient 55mm Hg, Peak Gradient of 98mm HG Aortic valve area 0.8 sq cm Normal LV size and wall thickness with mild global hypokinesis Estimated EF at 45-50 %. The RV is normal in size and systolic function. Moderate MAC with Trace MR. Mild TR Marlyn Cooper (Electronically Signed) Final Date: 10 July 2025 17:29
--- NOTE | 2025-07-09 14:37 | PD.RESCONSUL ---
HPI Data of Consult Consult date: 07/09/25 Primary Care Provider: Viky Wick PA-C Consult Narrative Reason for consult: ESRD on HD History of present illness: Ms Desouza is a 65-year-old female with a past medical history significant for end-stage renal disease on hemodialysis ( schedule), heart failure with preserved EF, hypertension, hyperlipidemia, and hypothyroidism, who presented to the ED with shortness of breath and chills after missing her Wednesday dialysis session. She states the transport service failed to arrive Wednesday morning, despite her waiting several hours. She denies any chest pain, orthopnea, paroxysmal nocturnal dyspnea, nausea, vomiting, diarrhea, fevers, or cough over the weekend. She did note some mild fatigue and ?heaviness? in her chest that improved after arrival to the hospital and being started on supplemental oxygen. In the ED, she was found to have K 5.5, BUN 76, Cr 10.5, and BNP 1474, with chest X-ray showing mild pulmonary vascular congestion and pulmonary artery hypertension. Troponin was 0.116, consistent with her baseline. She was hemodynamically stable and admitted for missed dialysis and mild volume overload. The patient follows regularly with Dr. Morales for dialysis, performed at her outpatient center on Wednesday, , and Wednesday via a right upper-extremity AV fistula. She reports continued small urine output and compliance with all prescribed medications. Nephrology was consulted for dialysis since patient missed her scheduled dialysis appointment. 07/09/2025: Patient seen and examined today while on dialysis. She reports feeling much better compared to admission and denies shortness of breath, chest pain, leg swelling, dizziness, or nausea. She expresses frustration about missing dialysis due to transportation problems but otherwise has no complaints. Endorses mild headache but denies abdominal pain, or urinary symptoms. Appetite fair. Sleep adequate. Labs: WBC 5.9, Hgb 10.6, Hct 33.1, Plt 111, Na 137, K 5.5, Cl 100, CO2 24.2, BUN 76, Cr 10.5, GFR 4, Glucose 97, Ca 10.0, Alb 4.6, LFTs within normal limits, Troponin 0.116 (baseline), BNP 1474, Influenza serology negative. CXR: Mild pulmonary congestion and pulmonary artery hypertension. cc:: cc: Review of Systems Constitutional Comments: Negative unless stated above Exam Vital Signs Temp Pulse Resp BP Pulse Ox O2 Del Method O2 Flow Rate 98.4 F 86 24 H 187/98 H 95 Room Air 1 07/09/25 13:35 07/09/25 14:30 07/09/25 13:35 07/09/25 14:30 07/09/25 13:35 07/09/25 12:14 07/09/25 13:35 Narrative Exam General: Alert, oriented ?3, sitting up comfortably in dialysis chair, no acute distress. HEENT: Normocephalic, atraumatic, no JVD. Cardiac: Regular rate and rhythm, 3/6 blowing systolic ejection murmur heard throughout chest. Lungs: Clear to auscultation bilaterally, no crackles or wheezing. Abdomen: Soft, non-tender, non-distended. Extremities: No edema, warm, well perfused. Access: Right upper-extremity AV fistula with good thrill and bruit, no erythema or tenderness. Neuro: Alert, oriented, speech intact, no focal deficits. Skin: Warm, dry, no rash. Results Labs 07/10/25 04:59 07/10/25 04:59 Labs: Short CBC 07/09/25 Range/Units 12:41 WBC 5.9 (3.6-11.0) Thou/mm3 Hgb 10.6 L (12.0-16.0) g/dL Hct 33.1 L (36.0-46.0) % Plt Count 111 L (140-440) Thou/mm3 BMP 07/09/25 12:41 Sodium 137 Potassium 5.5 H Chloride 100 Carbon Dioxide 24.2 BUN 76 H Creatinine 10.5 H* Glucose 97 Calcium 10.0 Cardiac Enzymes 07/09/25 Range/Units 12:41 Troponin I 0.116 H* (0.0-0.045) ng/mL Liver Function 07/09/25 Range/Units 12:41 Total Bilirubin 0.3 (0.3-1.2) mg/dL AST 11 (0-34) U/L ALT < 7 L (10-49) U/L Alkaline Phosphatase 55 (46-116) U/L Albumin 4.6 (3.4-4.8) gm/dL Quality Measures Quality Measures VTE prophylaxis Medications Home Medications and Allergies Home Medications ?Medication ?Instructions ?Recorded ?Confirmed ?Type levothyroxine 75 mcg tablet 75 mcg PO DAILY 01/09/24 07/09/25 History sevelamer carbonate 800 mg tablet 1,600 mg PO TIDWMEAL 01/09/24 07/09/25 History acetaminophen 650 mg 650 mg PO Q8H PRN pain 12/06/24 07/09/25 History tablet,extended release aspirin 81 mg chewable tablet 1 tab PO DAILY 12/06/24 07/09/25 History cinacalcet 30 mg tablet 30 mg PO .COMPLEX 12/06/24 07/09/25 History midodrine 5 mg tablet 5 mg PO DAILY 12/06/24 07/09/25 History atorvastatin 10 mg tablet 10 mg PO HS 03/29/25 07/09/25 History carvedilol 3.125 mg tablet 3.125 mg PO BID 03/29/25 07/09/25 History furosemide 40 mg tablet 40 mg PO DAILY 03/29/25 07/09/25 History sertraline 50 mg tablet 50 mg PO Q24H 03/29/25 07/09/25 History Allergies Allergy/AdvReac Type Severity Reaction Status Date / Time peach Allergy Severe SKIN RASH Verified 07/09/25 11:54 Visit Medications Acetaminophen (Acetaminophen 325 Mg Tablet) 650 mg PO Q6H PRN PRN Reason: Fever >101.5 Stop: 08/08/25 14:22 Al Hydrox/Mg Hydrox/Simethicone (Mg Hyd/Al Hyd/Zahida (Maalox Reg) Susp 30 Ml Udc) 30 ml PO Q6H PRN PRN Reason: Indigestion Stop: 08/08/25 14:22 Aspirin (Aspirin 81 Mg Chew) 81 mg PO QDAY [facility] Stop: 08/08/25 14:44 Furosemide (Furosemide 40 Mg Tablet) 40 mg PO DAILY [facility] Stop: 08/08/25 14:44 Albumin Human (Albuminex 25% Ivpb) 25 gm in 100 mls @ 100 mls/hr IV PRN PRN PRN Reason: DIALYSIS Isosorbide Mononitrate (Isosorbide Er Mononitrate 30 Mg Tabcr) 30 mg PO QDAY [facility] Stop: 08/08/25 14:44 Levothyroxine Sodium (Levothyroxine Sodium 25 Mcg Tablet) 75 mcg PO ACBR LISY Stop: 08/08/25 14:44 Discontinued Medications Acetaminophen (Acetaminophen 325 Mg Tablet) 650 mg PO X1 ONE Stop: 07/09/25 14:36 Albuterol (Albuterol Rt 2.5 Mg/3 Ml Nebu) 2.5 mg INH X1 ONE Stop: 07/09/25 13:57 Carvedilol (Carvedilol 3.125 Mg Tablet) 3.125 mg PO Q12HR ONE Stop: 07/09/25 14:33 Dextrose (Dextrose 50%-Water Inj 50 Ml Syringe) 100 ml IV X1 ONE Stop: 07/09/25 13:57 Furosemide (Furosemide Inj 10 Mg/Ml Vial 2 Ml) 40 mg IVP X1 ONE Stop: 07/09/25 13:57 Insulin Human Regular (Insulin Hum Regular 1 Unit/0.01 Ml (Per Unit)) 5 unit IV X1 ONE Stop: 07/09/25 13:57 Sodium Polystyrene Sulfonate (Sod Polystyrene Sulfon Susp 15 Gm/60 Ml Btl) 30 gm PO X1 ONE Stop: 07/09/25 13:57 Assessment & Plan Plan 65-year-old female with ESRD on HD () who missed one dialysis session due to transportation failure, now admitted for mild hyperkalemia and fluid overload, currently on dialysis and clinically stable. # ESRD on Hemodialysis () Missed Wednesday session; now receiving dialysis and tolerating well. Plan: Continue full hemodialysis session today (3 hr, 2K bath, UF 2?3 L as tolerated). Resume outpatient / schedule after discharge. Avoid nephrotoxins; renally dose all medications. Coordinate with social work regarding transportation to prevent missed sessions. Monitor daily weights and fluid balance. # Hyperkalemia (K 5.5) Mild, secondary to missed dialysis; will be corrected with current HD. Plan: No additional medical therapy required. Recheck BMP post-dialysis and in AM. # Chronic Anemia of CKD Stable Hgb 10.6. Plan: Continue YULIET per outpatient protocol. Monitor CBC. Active problems: # Acute hypoxic respiratory failure # Hypertension # Systolic Murmur # Hypothyroidism # CHF # Elevated troponin Management per primary team ----- Plan discussed with attending physician Dr. Carmen Arthur MD PGY-1 Internal Medicine Attending Provider Attestation/Addendum Patient seen and examined with resident physician Dr. Arthur. Note reviewed, agree with findings and recommendations. Patient currently seen on dialysis. Tolerating dialysis without any problems. Hemodialysis for 3 hours, 2K, ultrafiltration 2-3 L, Epogen 6000, no heparin ordered. Plan of care discussed with the dialysis nurse. Please see dialysis flowsheet for further details. Patient will get extra session tomorrow to catch up with TTS schedule.
[2025-07-09] MEDS: ACETAMINOPHEN 325 MG TABLET 650 MG PO (14:39)
--- NOTE | 2025-07-09 16:05 | PC.NURSE ---
Report given to Alessia Pleitez patient will be transferring to room 381 after HD.
--- NOTE | 2025-07-09 16:11 | PC.NURSE ---
Rn informed Deanna HERNANDEZ Rn report was given and will take patient to room after HD treatment.
[2025-07-09] MEDS: EPOETIN ALFA-EPBX INJ 10,000 UNIT/ML VIAL (ESRD) 10000 UNIT SC (17:24)
[2025-07-09] MEDS: ASPIRIN 81 MG CHEW PO (18:43)
[2025-07-09 21:44] LABS: Albumin, Serum 4.0 gm/dL (3.4-4.8); Anion Gap 11 (7-16); BUN/Creatinine Ratio 5 Ratio (12-20); Blood Urea Nitrogen 29 mg/dL (9-23); Calcium 9.0 mg/dL (8.3-10.6); Calcium (Corrected) 9.0 mg/dL (8.5-10.1); Carbon Dioxide 28.7 mMol/L (20.0-31.0); Chloride 99 mMol/L (98-107); Creatinine (Component) 6.1 mg/dL (0.6-1.3); Estimated Creatinine Clearance 9.9 mL/min (>60); Glucose 162 mg/dL (74-106); Osmolality,Calculated 287 (275-295); Phosphorous 4.5 mg/dL (2.4-5.1); Potassium 4.2 mMol/L (3.4-5.1); Sodium 139 mMol/L (136-145); eGFR 7 See Note
[2025-07-10] VITALS (21 sets, daily range): BP systolic 106–150; BP diastolic 56–87; PULSE 64–80; RESP 18–20; TEMP 36.1–37.2; O2SAT 90–100
[2025-07-10] MEDS: ACETAMINOPHEN 325 MG TABLET 650 MG PO (05:22)
[2025-07-10] MEDS: LEVOTHYROXINE SODIUM 25 MCG TABLET 75 MCG PO (05:22)
[2025-07-10 05:41] LABS: Basophils # (Auto) 0.0 Thou/mm3 (0.0-0.2); Basophils % (Auto) 0 % (0-2.5); Eosinophils # (Auto) 0.1 Thou/mm3 (0.0-0.5); Eosinophils % (Auto) 2 % (0-10); Hematocrit 30.8 % (36.0-46.0); Hemoglobin 10.0 g/dL (12.0-16.0); Immature Granulocytes Auto 0.02 Thou/mm3 (0.00-0.00); Lymphocytes # (Auto) 0.9 Thou/mm3 (1.0-4.8); Lymphocytes % (Auto) 20 % (10-50); Mean Corpuscular HGB Conc 32.5 g/dl (31.0-37.0); Mean Corpuscular Hemoglobin 28.7 pg (25.0-35.0); Mean Corpuscular Volume 89 fL (80-100); Monocytes # (Auto) 0.5 Thou/mm3 (0.0-0.8); Monocytes % (Auto) 11 % (0-12); Neutrophils # (Auto) 3.1 Thou/mm3 (1.8-7.7); Neutrophils % (Auto) 67 % (37-80); Nucleated Red Blood Cell # 0.00 Thou/mm3 (0.00-0.00); Nucleated Red Blood Cell % 0 /100 WBC (0); Platelet Count 93 Thou/mm3 (140-440); RDW Standard Deviation 41.2 fL (36.4-46.3); Red Blood Count 3.48 Miln/mm3 (4.00-5.20); White Blood Count 4.6 Thou/mm3 (3.6-11.0)
[2025-07-10 06:24] LABS: Alanine Aminotransferase < 7 U/L (10-49); Albumin, Serum 4.0 gm/dL (3.4-4.8); Albumin/Globulin Ratio 1.7 (1.2-2.2); Alkaline Phosphatase 50 U/L (46-116); Anion Gap 12 (7-16); Aspartate Amino Transferase < 10 U/L (0-34); BUN/Creatinine Ratio 6 Ratio (12-20); Bilirubin,Total 0.4 mg/dL (0.3-1.2); Blood Urea Nitrogen 43 mg/dL (9-23); Calcium 9.3 mg/dL (8.3-10.6); Calcium (Corrected) 9.3 mg/dL (8.5-10.1); Carbon Dioxide 29.9 mMol/L (20.0-31.0); Chloride 98 mMol/L (98-107); Creatinine (Component) 7.0 mg/dL (0.6-1.3); Estimated Creatinine Clearance 8.7 mL/min (>60); Globulin 2.3 gm/dL (2.3-3.5); Glucose 89 mg/dL (74-106); Magnesium 2.2 mg/dL (1.6-2.6); Osmolality,Calculated 289 (275-295); Phosphorous 6.6 mg/dL (2.4-5.1); Potassium 4.7 mMol/L (3.4-5.1); Sodium 140 mMol/L (136-145); Total Protein 6.3 gm/dL (5.7-8.2); eGFR 6 See Note
--- NOTE | 2025-07-10 09:58 | ESPR_ITS ---
Documentation for date of: 07/10/25 Subjective Subjective Interval history: Reason for consult: ESRD on HD History of present illness: Ms Desouza is a 65-year-old female with a past medical history significant for end-stage renal disease on hemodialysis ( schedule), heart failure with preserved EF, hypertension, hyperlipidemia, and hypothyroidism, who presented to the ED with shortness of breath and chills after missing her Wednesday dialysis session. She states the transport service failed to arrive Wednesday morning, despite her waiting several hours. She denies any chest pain, orthopnea, paroxysmal nocturnal dyspnea, nausea, vomiting, diarrhea, fevers, or cough over the weekend. She did note some mild fatigue and ?heaviness? in her chest that improved after arrival to the hospital and being started on supplemental oxygen. In the ED, she was found to have K 5.5, BUN 76, Cr 10.5, and BNP 1474, with chest X-ray showing mild pulmonary vascular congestion and pulmonary artery hypertension. Troponin was 0.116, consistent with her baseline. She was hemodynamically stable and admitted for missed dialysis and mild volume overload. The patient follows regularly with Dr. Morales for dialysis, performed at her outpatient center on Wednesday, , and Wednesday via a right upper-extremity AV fistula. She reports continued small urine output and compliance with all prescribed medications. Nephrology was consulted for dialysis since patient missed her scheduled dialysis appointment. 07/09/2025: Patient seen and examined today while on dialysis. She reports feeling much better compared to admission and denies shortness of breath, chest pain, leg swelling, dizziness, or nausea. She expresses frustration about missing dialysis due to transportation problems but otherwise has no complaints. Endorses mild headache but denies abdominal pain, or urinary symptoms. Appetite fair. Sleep adequate. Labs: WBC 5.9, Hgb 10.6, Hct 33.1, Plt 111, Na 137, K 5.5, Cl 100, CO2 24.2, BUN 76, Cr 10.5, GFR 4, Glucose 97, Ca 10.0, Alb 4.6, LFTs within normal limits, Troponin 0.116 (baseline), BNP 1474, Influenza serology negative. CXR: Mild pulmonary congestion and pulmonary artery hypertension. 07/10/2025: Patient seen and examined today. She is doing well and was seen eating breakfast, tolerating her meal without issues. She reports she tolerated dialysis well yesterday. States she had one episode of vomiting yesterday but denies any current nausea, abdominal pain, or urge to vomit this morning. No chest pain, shortness of breath, dizziness, or leg swelling. She is scheduled for dialysis again today. Appetite improving. Labs: WBC 4.6, Hgb 10.0, Hct 30.8, Plt 93, Na 140, K 4.7, Cl 98, CO2 29.9, BUN 43, Cr 7.0, GFR 6, Ca 9.3, Phos 6.6, Mg 2.2. Exam Vital Signs Temp Pulse Resp BP Pulse Ox O2 Del Method O2 Flow Rate 98.2 F 67 20 133/69 H 92 L Nasal Cannula 2 07/10/25 08:02 07/10/25 09:45 07/10/25 08:02 07/10/25 09:45 07/10/25 08:02 07/10/25 04:00 07/10/25 08:02 Narrative Exam General: Alert, oriented ?3, sitting up comfortably in dialysis chair, no acute distress. HEENT: Normocephalic, atraumatic, no JVD. Cardiac: Regular rate and rhythm, 3/6 blowing systolic ejection murmur heard throughout chest. Lungs: Clear to auscultation bilaterally, no crackles or wheezing. Abdomen: Soft, non-tender, non-distended. Extremities: No edema, warm, well perfused. Access: Right upper-extremity AV fistula with good thrill and bruit, no erythema or tenderness. Neuro: Alert, oriented, speech intact, no focal deficits. Skin: Warm, dry, no rash. Objective Labs 07/10/25 04:59 07/10/25 04:59 Labs: Laboratory Results - last 24 hr 07/09/25 07/09/25 07/09/25 12:41 12:45 20:34 WBC 5.9 RBC 3.76 L Hgb 10.6 L Hct 33.1 L MCV 88 MCH 28.2 MCHC 32.0 RDW Std Deviation 40.8 Plt Count 111 L Neut % (Auto) 73 Lymph % (Auto) 16 Garza % (Auto) 8 Eos % (Auto) 2 Baso % (Auto) 0 Neut # (Auto) 4.3 Lymph # (Auto) 1.0 Garza # (Auto) 0.5 Eos # (Auto) 0.1 Baso # (Auto) 0.0 Immature Gran # (Auto) 0.02 H Absolute Nucleated RBC 0.00 Immature Gran % 0 Nucleated RBC % 0 Sodium 137 139 Potassium 5.5 H 4.2 D Chloride 100 99 Carbon Dioxide 24.2 28.7 Anion Gap 13 11 BUN 76 H 29 H Creatinine 10.5 H* 6.1 H* D Estim Creat Clear Calc 5.8 L 9.9 L eGFR 4 L* 7 L* BUN/Creatinine Ratio 7 L 5 L Glucose 97 162 H D Calculated Osmolality 296 H 287 Calcium 10.0 9.0 Corrected Calcium 10.0 9.0 Phosphorus 4.5 Magnesium Total Bilirubin 0.3 AST 11 ALT < 7 L Alkaline Phosphatase 55 Troponin I 0.116 H* B-Natriuretic Peptide 1474 H* Total Protein 7.2 Albumin 4.6 4.0 D Globulin 2.6 Albumin/Globulin Ratio 1.8 Influenza A (Rapid) Negative Influenza B (Rapid) Negative 07/10/25 04:59 WBC 4.6 RBC 3.48 L Hgb 10.0 L Hct 30.8 L MCV 89 MCH 28.7 MCHC 32.5 RDW Std Deviation 41.2 Plt Count 93 L Neut % (Auto) 67 Lymph % (Auto) 20 Garza % (Auto) 11 Eos % (Auto) 2 Baso % (Auto) 0 Neut # (Auto) 3.1 Lymph # (Auto) 0.9 L Garza # (Auto) 0.5 Eos # (Auto) 0.1 Baso # (Auto) 0.0 Immature Gran # (Auto) 0.02 H Absolute Nucleated RBC 0.00 Immature Gran % 0 Nucleated RBC % 0 Sodium 140 Potassium 4.7 D Chloride 98 Carbon Dioxide 29.9 Anion Gap 12 BUN 43 H Creatinine 7.0 H* D Estim Creat Clear Calc 8.7 L eGFR 6 L* BUN/Creatinine Ratio 6 L Glucose 89 D Calculated Osmolality 289 Calcium 9.3 Corrected Calcium 9.3 Phosphorus 6.6 H Magnesium 2.2 Total Bilirubin 0.4 AST < 10 ALT < 7 L Alkaline Phosphatase 50 Troponin I B-Natriuretic Peptide Total Protein 6.3 Albumin 4.0 Globulin 2.3 Albumin/Globulin Ratio 1.7 Influenza A (Rapid) Influenza B (Rapid) Quality Measures Quality Measures VTE prophylaxis Assessment & Plan Assessment Current Active Medications: Generic Name Dose Route Start Last Admin Trade Name Freq PRN Reason Stop Dose Admin Acetaminophen 650 mg 07/10/25 05:10 07/10/25 05:22 Acetaminophen 325 Mg Tablet PO 08/08/25 14:22 650 mg Q6H PRN Administration Fever >101.5 and Pain 1-3 Al Hydrox/Mg Hydrox/Simethicone 30 ml 07/09/25 14:23 Mg Hyd/Al Hyd/Zahida (Maalox Reg) Susp 30 Ml Udc PO 08/08/25 14:22 Q6H PRN Indigestion Aspirin 81 mg 07/09/25 14:45 07/09/25 18:43 Aspirin 81 Mg Chew PO 08/08/25 14:44 81 mg QDAY LISY Administration Carvedilol 3.125 mg 07/10/25 08:00 Carvedilol 3.125 Mg Tablet PO 08/09/25 07:59 BIDWM LISY Furosemide 40 mg 07/09/25 14:45 07/09/25 18:43 Furosemide 40 Mg Tablet PO 08/08/25 14:44 40 mg DAILY LISY Administration Albumin Human 25 gm in 100 mls @ 100 mls/hr 07/09/25 12:57 Albuminex 25% Ivpb IV PRN PRN DIALYSIS Isosorbide Mononitrate 30 mg 07/09/25 14:45 07/09/25 18:44 Isosorbide Er Mononitrate 30 Mg Tabcr PO 08/08/25 14:44 Not Given On Hold: 07/09/25 18:34 QDAY LISY Levothyroxine Sodium 75 mcg 07/09/25 14:45 07/10/25 05:22 Levothyroxine Sodium 25 Mcg Tablet PO 08/08/25 14:44 75 mcg ACBR LISY Administration Plan 65-year-old female with ESRD on hemodialysis (), admitted after missed session with mild hyperkalemia and uremia, now clinically stable and tolerating dialysis well. # ESRD on Hemodialysis () Tolerated yesterday?s dialysis session without issues; scheduled for dialysis again today. Plan: * Continue HD today as scheduled (2K, 3-hour session, UF 2?3 L as tolerated). * Resume outpatient dialysis schedule after discharge. * Avoid nephrotoxins and renally dose medications. * Maintain fluid restriction. # Hyperkalemia (resolved) K normalized to 4.7 after dialysis. Plan: * Continue monitoring BMP daily. # Chronic Anemia of CKD Stable Hgb 10.0. Plan: * Continue YULIET per outpatient protocol. * Monitor CBC. Active problems: # Acute hypoxic respiratory failure # Hypertension # Systolic Murmur # Hypothyroidism # CHF # Elevated troponin Management per primary team ----- Plan discussed with attending physician Dr. Carmen Arthur MD PGY-1 Internal Medicine Attending Provider Attestation/Addendum Patient seen and examined with resident physician Dr. Arthur. Note reviewed, agree with findings and recommendations. Patient currently seen on dialysis. Tolerating dialysis without any problems. Hemodialysis for 3 hours, 2K, ultrafiltration 2-3 L, Epogen 6000, no heparin ordered. Plan of care discussed with the dialysis nurse. Please see dialysis flowsheet for further details.
[2025-07-10 10:47] LABS: Hepatitis A Antibody IgM Non Reactive (Non React); Hepatitis B Core Antibody IgM Non Reactive (Non React); Hepatitis B Surface Ab NonReact(Not Immune) (Immune); Hepatitis B Surface Antigen Non Reactive (Non React); Hepatitis C Antibody Reactive (Non React)
[2025-07-10] MEDS: ASPIRIN 81 MG CHEW PO (12:22)
[2025-07-10] MEDS: SEVELAMER CARBONATE 800 MG TABLET PO (12:23)
--- NOTE | 2025-07-10 14:03 | ESDS_ITS ---
<Statement entered by Benjie Sadler MD - 07/13/25 17:20> I reviewed above note and agree with findings and plans. I have also personally examined the patient with medicine team and went over assessment and plan with medical team including partner marketing intern and resident physician. Planned Discharge Date 07/10/25 DS: Providers Provider Date of admission: 07/09/25 14:54 Primary care physician: Viky Wick PA-C Admitting Provider: Maritza Garcia DO Attending Provider on Admission: Maritza Garcia DO Consults: 07/09/25 14:29 Consult to Nephrology Stat Comment: Consulting Provider: Luz Morales 07/09/25 20:07 Referral Respiratory Therapy Routine Comment: 07/10/25 09:27 Referral Physical Therapy Routine Comment: Physician Instructions: Attending Provider on DC: Thaddeus Ramachandran DO Discharging Provider: Thaddeus Ramachandran DO DS: Diagnosis Problem List Completed Was Problem List Reviewed/Reconciled?: Yes Hospital Course Hospital Course Hospital course: Summary: 64-year-old female with past medical history of ESRD on HD (//) followed by Dr. Morales, hypertension, hypothyroidism, CHF, presented to the ED on 07/09/2025 with shortness of breath after missing dialysis session on 07/07. Patient was admitted for acute hypoxic respiratory failure secondary to missed hemodialysis. Patient was given 2 sessions of hemodialysis and was discharged the next day. ED course: Vitals: Temperature 99.1 F, DE 91, RR 20, BP 168/96, 87% O2 saturation on room air. Labs: Potassium 5.5, bicarb 24.2,BUN 76, Cr 10.5, eGFR 4, troponin 0.116, BNP 1474. ED: patient was given albumin IV 25 g and started on hemodialysis. Hospital Course: Patient has been admitted for observation overnight. On the day of admission 07/09, patient was given hemodialysis session. Restarted her home medication: Aspirin 81 mg po qd, Carvedilol 3.125 mg Po q12hr, Furosemide 40mg po qd, Isosorbide mononitrate 30mg tb and Levothyroxine 75 mcg po qd. patient was given another hemodialysis session today 07/10. Patient has been feeling much better without shortness of breath and headache. Recommended follow up ECHO outpatient. Patient's chronically elevated troponin was likely due to ESRD status, elevated BNP from missing dialysis causing vascular congestion. Patient denied having chest pain and there were no evidence of acute ischemia. Received instructions to resume outpatient dialysis per schedule upon discharge Instructions: Stop taking Entresto as this medication can cause elevated potassium levels Please continue all home medications as prescribed and continue going to all scheduled dialysis sessions Please follow-up with lumber straightener, Dr. Morales, within 1 week of discharge Please follow-up with your PCP within 1 week of discharge or follow-up at the [facility] [address] [place] [address] If your symptoms worsen or if you develop new chest pain, shortness of breath, dizziness or bleeding - please come back to the ED immediately #Acute Hypoxic Respiratory Failure 2/2 Missed Hemodialysis session #ESRD on hemodialysis (//Wed) #Anemia of Chronic Kidney disease #Hyperkalemia #Hypertensive Emergency #Troponemia, chronic #Hx of CHF #Hx of HFpEF 55% in 2023 Assessment and plan discussed with my attending physician Dr. Doroteo Ramachandran (PGY-1) - Internal medicine resident Status at Discharge Overall status at discharge: patient is progressing back to baseline Time Spent with Patient Time attestation: Total time spent providing and/or coordinating discharge services: Time spent: Greater than 30 minutes Exam Vital Signs Temp Pulse Resp BP Pulse Ox O2 Del Method O2 Flow Rate 98.9 F 69 18 129/84 100 Room Air 2 07/10/25 12:27 07/10/25 12:27 07/10/25 12:27 07/10/25 12:27 07/10/25 12:27 07/10/25 12:27 07/10/25 11:50 Narrative Exam General: No acute distress, well nourished, AAO x3 Eye: PERRL, EOMI, normal conjunctiva, no scleral icterus HENT: Normocephalic, atraumatic, hearing intact to conversation at normal volume, moist oral mucosa Neck: Supple, non-tender, no JVD, no lymphadenopathy Lungs: Non-labored respirations, symmetric chest rise, Clear to auscultate bilaterally, No wheezing, rhonchi, crackles Heart: Peripheral pulses intact bilaterally, Regular Rate and Rhythm. Systolic ejection murmur on Left sternal border Abdomen: Soft, non-tender, non-distended, no palpable masses Musculoskeletal: Normal range of motion and strength, No cyanosis or edema, No visible joint swelling Skin: Skin is warm, dry, no rashes or lesions. Right brachiocephalic AV fistula. Psychiatric: Cooperative, appropriate mood and affect, Awake and alert, not agitated Neuro: Cranial nerves II-XII grossly intact. Strength 5/5 throughout. Sensations intact to light touch. Discharge Plan Plan Patient Disposition: HOME (Self Care) Care Plan Goals: Stop taking Entresto as this medication can cause elevated potassium levels Please continue all home medications as prescribed and continue going to all scheduled dialysis sessions Please follow-up with lumber straightener, Dr. Morales, within 1 week of discharge Please follow-up with your PCP within 1 week of discharge or follow-up at the [facility] [address] [place] [address] If your symptoms worsen or if you develop new chest pain, shortness of breath, dizziness or bleeding - please come back to the ED immediately Prescriptions/Referrals Prescriptions/Med Rec: Continued levothyroxine 75 mcg tablet 75 mcg PO DAILY sevelamer carbonate 800 mg tablet 1,600 mg PO TIDWMEAL aspirin 81 mg tablet,chewable 1 tab PO DAILY acetaminophen 650 mg tablet extended release 650 mg PO Q8H PRN (Reason: pain) midodrine 5 mg tablet 5 mg PO DAILY Patient Comments: patient states only takes medication when blood pressure is low during dialysis days. Rx Instructions: patient states only takes medication when blood pressure is low during dialysis days. cinacalcet 30 mg tablet 30 mg PO .COMPLEX Rx Instructions: 30 mg orally 3x a week, mon-wed-fri; furosemide 40 mg tablet 40 mg PO DAILY carvedilol 3.125 mg tablet 3.125 mg PO BID sertraline 50 mg tablet 50 mg PO Q24H atorvastatin 10 mg tablet 10 mg PO HS Discontinued sacubitril-valsartan [Entresto] 24-26 mg tablet 1 tab PO BID Referrals: Luz Morales MD [Physician, Nephrology] Viky Wick PA-C [Primary Care Provider, Family Practice] Patient/Caregiver Discharge Instructions Education Materials: Hemodialysis Print Language: Italian Stand Alone Forms: Devi Award Info., Patient Portal Info Letter, Work/Release Restrictions Discharge Order Discharge Orders: Discharge (Routine); Ordered 07/10/25 Ordered By: Tj Estrella Quality Discharge Quality Measures VTE prophylaxis
== END 2025-07-10 13:14 | disposition home or self-care (01) ==
LOC: SERX 14:15 → S3SX 07-10 08:02 → SERHOLD 07-10 08:07 → S3SX 07-10 08:08 → SERHOLD 07-10 08:09
PROVIDERS: Internal Medicine; Admitting Provider Internal Medicine; Emergency Provider Emergency Medicine; PCP Physician Assistant; Visit Provider Internal Medicine
DX: J96.01 Acute respiratory failure with hypoxia (principal); Z91.158 Patient's noncompliance with renal dialysis for other reason; I13.2 Hypertensive heart and chronic kidney disease with heart failure and with stage 5 chronic kidney disease, or end stage renal disease; N18.6 End stage renal disease; Z99.2 Dependence on renal dialysis; I16.1 Hypertensive emergency; E87.5 Hyperkalemia; I27.21 Secondary pulmonary arterial hypertension; I50.32 Chronic diastolic (congestive) heart failure; D63.1 Anemia in chronic kidney disease; E03.9 Hypothyroidism, unspecified; E78.5 Hyperlipidemia, unspecified
CPT/HCPCS: 36415; 71045; 80053; 80069; 80074; 83735; 83880; 84100; 84484; 85025; 86706; 87081; 87502; 87811; 90935; 93005; 93306; 96372; 99284; G0378; Q5105; A9270; G0257